=== PATIENT | female | born 1965 | race Caucasian/White ===

== ENCOUNTER 2020-04-18 15:07 | Outpatient (CLI) | payer OTHER, SELFPAY ==
--- NOTE | 2020-04-18 15:14 | MM_ITS ---
WS: [id number] BILATERAL DIGITAL SCREENING MAMMOGRAPHY WITH CAD CLINICAL INFORMATION: SCREENING HISTORY: Screening mammogram. No current complaints. COMPARISON: TECHNIQUE: Bilateral CC and MLO views. FINDINGS: Scattered fibroglandular densities bilaterally. No suspicious focal mass, asymmetry, calcifications, or architectural distortion. No evidence of malignancy. Stable axillary tail lymph nodes. MM/[id number] IMPRESSION: BI-RADS: 2-Benign FOLLOW UP: 1 Year Follow-up Recommend return to annual screening mammography.
== END 2020-04-18 15:08 | disposition home or self-care (01) ==
LOC: RADSHAW 15:12
PROVIDERS: PCP Family Medicine; Visit Provider Family Medicine
DX: Z12.31 Encounter for screening mammogram for malignant neoplasm of breast (principal)
CPT/HCPCS: 77067

== ENCOUNTER 2021-05-29 07:45 | Outpatient (CLI) | payer OTHER, SELFPAY ==
--- NOTE | 2021-05-29 07:49 | MM_ITS ---
WS: [id number] BILATERAL SCREENING DIGITAL MAMMOGRAM WITH CAD HISTORY: SCREENING COMPARISON: 04/18/2020, 02/24/2019 Bilateral CC and MLO views submitted. Computer aided detection analyzed. Breast composition: There are scattered areas of fibroglandular density. No suspicious masses, microc alcifications or architectural distortion. Stable bilateral axillary tail lymph nodes. MM/[place] [id number] IMPRESSION: BI-RADS: 2-Benign FOLLOW UP: 1 Year Follow-up
== END 2021-05-29 07:46 | disposition home or self-care (01) ==
LOC: RADSHAW 07:48
PROVIDERS: PCP Family Medicine; Visit Provider Family Medicine
DX: Z12.31 Encounter for screening mammogram for malignant neoplasm of breast (principal)
CPT/HCPCS: 77067

== ENCOUNTER → 2022-10-09 08:10 | Outpatient (BNVA) | payer OTHER, SELFPAY | PROVIDERS: PCP Family Medicine; Visit Provider Family Medicine | DX: Z00.00 Encounter for general adult medical examination without abnormal findings (principal); I10 Essential (primary) hypertension; E11.9 Type 2 diabetes mellitus without complications; G62.9 Polyneuropathy, unspecified | CPT/HCPCS: 80053; 80061; 82607; 83036; 84443; 85025 ==

== ENCOUNTER 2022-10-24 15:03 | Outpatient (CLI) | payer OTHER, SELFPAY ==
--- NOTE | 2022-10-24 15:27 | MM_ITS ---
WS: [id number] BILATERAL 3D TOMOSYNTHESIS DIGITAL SCREENING MAMMOGRAPHY WITH CAD CLINICAL INFORMATION: SCREEN HISTORY: Screening mammogram. No current complaints. COMPARISON: May 29, 2021 TECHNIQUE: Bilateral CC and MLO views. FINDINGS: Scattered fibroglandular densities bilaterally. No suspicious focal mass, asymmetry, calcifications, or architectural distortion. No evidence of malignancy. MM/[place] [id number] IMPRESSION: BI-RADS: 1-Negative FOLLOW UP: 1 Year Follow-up Recommend return to annual screening mammography.
== END 2022-10-24 15:04 | disposition home or self-care (01) ==
PROVIDERS: PCP Family Medicine; Visit Provider Family Medicine
DX: Z12.31 Encounter for screening mammogram for malignant neoplasm of breast (principal)
CPT/HCPCS: 77063; 77067

== ENCOUNTER 2022-11-03 16:22 | Outpatient (CLI) | payer OTHER, SELFPAY ==
--- NOTE | 2022-11-03 16:27 | XR_ITS ---
WS: [id number] Exam: XR knee RT 1-2V [id number] Date/Time of Exam: 11/03/2022 4:46 PM Reason For Exam: right knee pain No fracture or dislocation. The joint compartments are well-maintained. No joint effusion seen. XR/XR knee RT 1-2V [id number] IMPRESSION: 1. Negative right knee.
== END 2022-11-03 16:23 | disposition home or self-care (01) ==
LOC: RAD 16:27
PROVIDERS: PCP Family Medicine; Visit Provider Family Medicine
DX: M25.561 Pain in right knee (principal)
CPT/HCPCS: 73560

== ENCOUNTER 2023-01-08 12:45 | Outpatient (CLI) | payer OTHER, SELFPAY ==
--- NOTE | 2023-01-08 13:00 | MR_ITS ---
WS: [id number] MRI RIGHT KNEE HISTORY: chronic knee pain COMPARISON: 11/03/2022 Anterior cruciate ligament: Intact. Posterior cruciate ligament: No identifiable PCL is visualized. There is abnormal signal along the co urse of the PCL and at the intercondylar notch. Medial collateral ligament: Partially extruded meniscus displacing the MCL. The deep portion of the M CL is wavy consistent with a partial tear. The superficial MCL is intact. Posterior lateral corner structures: Intact. Medial menisci: Abnormal signal throughout a large portion of the posterior horn extending into the m eniscal root. Slight blunting of the anterior horn. Lateral meniscus: Intact. Normal signal, size and shape. Extensor mechanism: Distal quadriceps tendon and patellar tendons are intact. Fluid and soft tissue: Small suprapatellar joint effusion. Lobulated Almaraz's cyst extends over a jamaal th of at least 6.4 cm. There is a small amount of fluid along the medial head of the gastrocnemius. Osseous and articular structures: Patellofemoral compartment: Negative. Medial compartment: Moderate narrowing medial compartment with near complete loss of cartilage. Marro w edema in the medial femoral condyle and the tibial plateau. Osteochondral changes along the tibial plateau. Lateral compartment: Negative. MR/MR knee RT wo con* [id number] IMPRESSION: 1. Moderate narrowing medial compartment with marrow edema and osteochondral l esion in the tibial plateau. Near complete loss of cartilage. 2. Highly suspicious for complete PCL tear. 3. Complex tear posterior horn medial meniscus with partial extrusion from th e joint space. 4. Ligament tear deep portion of the MCL. 5. Small suprapatellar joint effusion. 6. Large Almaraz's cyst with free fluid extending along the medial head of the g astrocnemius. This may indicate partial rupture of the cyst.
== END 2023-01-08 12:46 | disposition home or self-care (01) ==
LOC: RAD 12:47
PROVIDERS: PCP Family Medicine; Visit Provider Family Medicine
DX: M25.861 Other specified joint disorders, right knee (principal); S83.231A Complex tear of medial meniscus, current injury, right knee, initial encounter; M25.461 Effusion, right knee; M71.21 Synovial cyst of popliteal space [Baker], right knee; X58.XXXA Exposure to other specified factors, initial encounter
CPT/HCPCS: 73721

== ENCOUNTER → 2023-03-27 08:39 | Outpatient (BNVA) | payer OTHER, SELFPAY | PROVIDERS: PCP Family Medicine; Visit Provider Family Medicine | DX: I10 Essential (primary) hypertension (principal); Z00.00 Encounter for general adult medical examination without abnormal findings | CPT/HCPCS: 80053; 80061; 83036 ==

== ENCOUNTER → 2023-10-12 07:53 | Outpatient (BNVA) | payer OTHER, SELFPAY | PROVIDERS: PCP Family Medicine; Visit Provider Family Medicine | DX: E11.9 Type 2 diabetes mellitus without complications (principal); I10 Essential (primary) hypertension | CPT/HCPCS: 80053; 80061; 83036; 84443; 85025 ==

== ENCOUNTER → 2023-12-25 07:57 | Outpatient (BNVA) | payer OTHER, SELFPAY | PROVIDERS: PCP Family Medicine; Visit Provider Family Medicine | DX: E11.22 Type 2 diabetes mellitus with diabetic chronic kidney disease (principal); I12.9 Hypertensive chronic kidney disease with stage 1 through stage 4 chronic kidney disease, or unspecified chronic kidney disease; N18.9 Chronic kidney disease, unspecified | CPT/HCPCS: 80053; 80061; 83036; 85025 ==

== ENCOUNTER → 2024-03-18 08:31 | Outpatient (BNVA) | payer OTHER, SELFPAY | PROVIDERS: PCP Family Medicine; Visit Provider Family Medicine | DX: I10 Essential (primary) hypertension (principal); E78.5 Hyperlipidemia, unspecified; E11.9 Type 2 diabetes mellitus without complications | CPT/HCPCS: 80053; 80061; 83036; 85025 ==

== ENCOUNTER → 2024-06-22 09:05 | Outpatient (BNVA) | payer OTHER, SELFPAY | PROVIDERS: PCP Family Medicine; Visit Provider Family Medicine | DX: I10 Essential (primary) hypertension (principal); E78.5 Hyperlipidemia, unspecified; E11.9 Type 2 diabetes mellitus without complications; N95.1 Menopausal and female climacteric states; G62.9 Polyneuropathy, unspecified | CPT/HCPCS: 80053; 80061; 83036; 84443 ==

== ENCOUNTER → 2024-09-22 09:52 | Outpatient (BNVA) | payer OTHER, SELFPAY | PROVIDERS: PCP Family Medicine; Visit Provider Family Medicine | DX: I10 Essential (primary) hypertension (principal); R73.03 Prediabetes | CPT/HCPCS: 80053; 80061; 83036 ==

== ENCOUNTER 2024-09-29 12:39 | Outpatient (CLI) | payer OTHER, SELFPAY ==
--- NOTE | 2024-09-29 | XRR_ITS ---
PROCEDURE INFORMATION: Exam: XR Right Ribs with PA Chest Exam date and time: 09/29/2024 1:07 PM Age: 59 years old Clinical indication: Chest wall pain; Prior surgery; Surgery date: 6+ months; Surgery type: Gb; Sharp pain in lower back side of right ribcage for 1 week. PT denies any injury; Additional info: Right rib pain. TECHNIQUE: Imaging protocol: Radiologic exam of the right ribs with PA chest. Views: 3 views COMPARISON: No relevant prior studies available. FINDINGS: Lungs: Mild bibasilar atelectasis or infiltrates. Pleural spaces: Small bilateral pleural effusions. Heart/Mediastinum: Unremarkable. No cardiomegaly. Bones/joints: Anterior cervical fusion. No displaced rib fracture. The images appear to be predominantly of the left rather than right ribs. XR/XR ribs LT mn 3V w CXR1V [id number] IMPRESSION: No acute traumatic injury. Images include more of the left ribs than the right.
== END 2024-09-29 12:40 | disposition home or self-care (01) ==
LOC: RAD 16:15
PROVIDERS: PCP Family Medicine; Visit Provider Family Medicine
DX: R07.89 Other chest pain (principal); R91.8 Other nonspecific abnormal finding of lung field; J90 Pleural effusion, not elsewhere classified; M43.22 Fusion of spine, cervical region
CPT/HCPCS: 71101

== ENCOUNTER 2024-09-30 08:39 | Outpatient (CLI) | payer OTHER, SELFPAY ==
--- NOTE | 2024-09-30 08:44 | XR_ITS ---
WS: [id number] Chest with right rib detail, 4 views, 09/30/2024 Clinical Data: RIGHT RIB PAIN/PLEURODYNIA Comparison: Chest with left rib detail, 09/29/2024 Findings: The lungs show no nodules or masses. There is a small right pleural effusion and an even smaller left pleural effusion. There is right midlung atelectasis. The heart is normal. No pneumonia or pneumothorax is seen. There is a calcification overlying the head of the right humerus which is probably calcific bursitis and/or tendinitis. There is an anterior cervical disc fusion. The ribs are intact. No rib fractures seen. No subcutaneous emphysema is present. There are right upper quadrant cholecystectomy clips. XR/XR ribs RT mn 3V w CXR1V [id number] Impression: 1. Small right pleural effusion and probable minute left pleural effusion. 2. Intact right ribs.
== END 2024-09-30 08:40 | disposition home or self-care (01) ==
LOC: RAD 08:41
PROVIDERS: PCP Family Medicine; Visit Provider Family Medicine
DX: R07.81 Pleurodynia (principal); J90 Pleural effusion, not elsewhere classified; J98.11 Atelectasis; R93.6 Abnormal findings on diagnostic imaging of limbs; M43.22 Fusion of spine, cervical region; Z90.49 Acquired absence of other specified parts of digestive tract
CPT/HCPCS: 71101

== ENCOUNTER 2024-10-09 13:29 | Emergency (ER) | payer OTHER, SELFPAY ==
[2024-10-09 13:40] VITALS: BP 127/80; PULSE 98; TEMP 36.6; O2SAT 95; BMI 25.2
--- NOTE | 2024-10-09 13:45 | XRR_ITS ---
PROCEDURE INFORMATION: Exam: XR Abdomen Exam date and time: 10/09/2024 3:07 PM Age: 59 years old Clinical indication: Constipation; Additional info: Constipation, abdominal pain TECHNIQUE: Imaging protocol: Radiologic exam of the abdomen. Views: Frontal supine view of the abdomen. 1 View. COMPARISON: CR XR ribs RT mn 3V w CXR1V [id number] 09/30/2024 1:07 PM FINDINGS: Gastrointestinal tract: Moderate fecal burden. No bowel dilation. Intraperitoneal space: There are right upper quadrant clips. Bones/joints: No acute findings. XR/XR abdomen 1V* [id number] IMPRESSION: No acute findings.
[2024-10-09 14:16] LABS: Add Urine Microscopic? NO
[2024-10-09 14:21] LABS: Bilirubin Urine Neg (Negative); Blood Urine Neg (Negative); Charge for UA Resulting for Rev; Glucose Urine UA Norm (Normal); Ketones Urine Negative (Negative); Leukocyte Esterase Urine Negative (Negative); Nitrate Urine Negative (Negative); Protein Urine Neg (Negative); Specific Gravity, Urine 1.005 (1.005-1.030); Urine Appearance Clear (CLEAR); Urine Color Yellow (Yellow); Urobilinogen Urine Norm (Negative); pH Urine 7 (5-7)
[2024-10-09 15:45] VITALS: BP 115/67; PULSE 66; RESP 15; O2SAT 100
--- NOTE | 2024-10-09 16:23 | CTR_ITS ---
PROCEDURE INFORMATION: Exam: CT Abdomen And Pelvis With Contrast Exam date and time: 10/09/2024 4:47 PM Age: 59 years old Clinical indication: Abdominal tenderness and constipation; Additional info: Abdominal distention pain constipation no bowel movement x 3 TECHNIQUE: Imaging protocol: Computed tomography of the abdomen and pelvis with contrast. Radiation optimization: All CT scans at this facility use at least one of these dose optimization techniques: automated exposure control; mA and/or kV adjustment per patient size (includes targeted exams where dose is matched to clinical indication); or iterative reconstruction. Contrast material: OMNIPAQUE 350; Contrast volume: 80 ml; Contrast route: INTRAVENOUS (IV); COMPARISON: CR XR abdomen 1V* [id number] 10/09/2024 3:07 PM RADIATION DOSE METRICS: Total DLP (mGy-cm): 415.26 FINDINGS: Lungs: Nonspecific bibasilar consolidation is present, consistent with atelectasis, edema, or pneumonia. Pleural spaces: Bilateral pleural effusions, larger on the right side. Liver: Normal. No mass. Gallbladder and biliary ducts: There has been a cholecystectomy. Pancreas: Normal. No ductal dilation. Spleen: Normal. No splenomegaly. Adrenal glands: Normal. No mass. Kidneys and ureters: Normal. No hydronephrosis. Stomach and bowel: There is moderately excessive colonic stool content. Appendix: No evidence of appendicitis. Intraperitoneal space: There is a small amount of free intraperitoneal fluid present. Vasculature: The vasculature demonstrates diffuse mild atherosclerotic calcification. There are numerous benign phleboliths in the pelvis. Lymph nodes: Unremarkable. No enlarged lymph nodes. Urinary bladder: Unremarkable as visualized. Reproductive: Unremarkable as visualized. Bones/joints: The pubic symphysis demonstrates mild degenerative changes. There are mild degenerative changes of the sacroiliac joints. There are mild degenerative changes of the hip joints. The lumbar spine demonstrates mild degenerative changes at multiple levels. Soft tissues: Unremarkable. CT/CT abdomen pelvis w con* [id number] IMPRESSION: 1. Moderate constipation with no changes of bowel obstruction or large masses. 2. Mild ascites. 3. Bilateral pleural effusions, larger on the right side with lower lobe consolidation/collapse.
--- NOTE | 2024-10-09 16:24 | W.ED.ABDPA2 ---
Documented by User: Gadiel Cardona DO 10/09/24 16:27 HPI - Abdominal Pain General: Chief Complaint: Abdominal Pain Stated Complaint: no bowel movement for 3 weeks Time Seen by Provider: 10/09/24 16:12 History of Present Illness: Patient presents to the ER with abdominal pain and nausea for the past 3 weeks worse on the right side front and back, patient also states she has not had a bowel movement in 3 weeks. She states she has very little oral intake because it hurts her abdomen or cause her to be nauseous and vomited right back up. Patient says these all started 3 weeks ago before that she did not have any abdominal problems. Her only abdominal surgeries are an appendectomy and a cholecystectomy. Both of these were done more than a decade ago. Related Data Previous Rx's ?Medication ?Instructions ?Recorded carvedilol 12.5 mg tablet See Rx Instructions .Route 10/26/23 .COMPLEX #90 tabs lisinopril 20 mg tablet See Rx Instructions .Route 10/26/23 .COMPLEX #90 tabs paroxetine HCl 20 mg tablet 20 mg PO DAILY hot flashes #90 tabs 10/26/23 trazodone 150 mg tablet See Rx Instructions .Route 11/02/23 .COMPLEX #90 tabs glimepiride 4 mg tablet 4 mg PO BID #180 tabs 12/29/23 pravastatin 10 mg tablet 10 mg PO DAILY #90 tabs 12/29/23 pioglitazone 15 mg tablet (Actos) 15 mg PO DAILY #90 tabs 03/28/24 pregabalin 25 mg capsule (Lyrica) 25 mg PO DAILY #30 caps 03/28/24 cyclobenzaprine 10 mg tablet See Rx Instructions .Route 08/29/24 .COMPLEX #180 tabs lactulose 10 gram/15 mL oral 20 g (30 mL) PO TID #1,500 mL 10/09/24 solution Allergies Allergy/AdvReac Type Severity Reaction Status Date / Time amitriptyline AdvReac Intermediate anxious Verified 10/09/24 13:45 atorvastatin (From Lipitor) AdvReac Intermediate cramps Verified 10/09/24 13:45 codeine AdvReac Intermediate Unknown Verified 10/09/24 13:45 gabapentin (From Neurontin) AdvReac Intermediate stomach Verified 10/09/24 13:45 pain lorazepam AdvReac Intermediate headaches Verified 10/09/24 13:45 simvastatin (From Zocor) AdvReac Intermediate leg cramps Verified 10/09/24 13:45 Review of Systems General: Reports: 10 or more systems reviewed and unremarkable except in HPI and below PFSH ED PFSH: Medical History Hyperlipidemia Hypertension Diabetes mellitus type 2, controlled Social History Smoking and tobacco/nicotine status: unknown if used tobacco/nicotine Physical Exam Const: COMMON NORMALS: no acute distress, average body habitus, patient oriented x3, no limitations, healthy appearing, alert and well nourished HENMT: COMMON NORMALS: normocephalic, atraumatic, hearing grossly normal bilaterally, external ears normal, Normal external nose present, moist oral mucous membranes and oropharynx normal HEAD & SCALP: normocephalic and atraumatic NOSE: Normal external nose present EXTERNAL EAR: Yes external ears normal Neck/C-Spine: COMMON NORMALS: no JVD Chest: COMMONS NORMALS: normal inspection of the chest and normal palpation of entire chest wall Resp: COMMON NORMALS: normal respiratory effort, No retractions, No use of accessory muscles and clear to auscultation bilaterally AUSCULTATION: clear to auscultation bilaterally Cardio: COMMON NORMALS: no JVD, regular rate, regular rhythm, S1 normal heart sound present, S2 normal heart sound present, No gallops present (Cardio), No clicks present (Cardio), No murmurs present (Cardio) and No rub (Cardio) RATE: regular rate RHYTHM: regular rhythm HEART SOUNDS: S1 normal heart sound present and S2 normal heart sound present GI: COMMON NORMALS: No hepatosplenomegaly present (Mildly diffusely tender, mildly distended decreased bowel sounds throughout) and no masses PALPATION: Yes No hepatosplenomegaly present (Mildly diffusely tender, mildly distended decreased bowel sounds throughout) Neuro: COMMON NORMALS: patient oriented x3 SENSORIUM/ORIENTATION: Yes alert Course Vital Signs: Vital signs: Vital Signs Temperature 97.8 F 10/09/24 13:40 Pulse Rate 84 10/09/24 18:30 Respiratory Rate 15 10/09/24 15:45 Blood Pressure 140/65 10/09/24 18:30 Pulse Oximetry 98 10/09/24 18:30 Oxygen Delivery Me thod Room Air 10/09/24 13:40 MDM - Abdominal Pain Medical Records I reviewed the patient's medical records. Lab Data I reviewed the patient's lab results. 10/09/24 16:33 10/09/24 16:33 Labs/Radiology: Radiology Impressions Abdomen X-Ray 10/09/24 13:45 IMPRESSION: No acute findings. Abdomen/Pelvis CT 10/09/24 16:23 IMPRESSION: 1. Moderate constipation with no changes of bowel obstruction or large masses. 2. Mild ascites. 3. Bilateral pleural effusions, larger on the right side with lower lobe consolidation/collapse. Laboratory Results WBC 15.54 10^3/uL (3.29-11.43) H 10/09/24 16:33 RBC 4.56 10^6/uL (3.85-5.65) 10/09/24 16:33 Hgb 13.30 g/dL (11.27-16.99) 10/09/24 16:33 Hct 39.6 % (36-47) 10/09/24 16:33 MCV 86.8 fl (85-98) 10/09/24 16:33 MCH 29.2 pg (27-33) 10/09/24 16:33 MCHC 33.6 g/dL (30-55) 10/09/24 16:33 RDW 13.1 % (12.1-15.1) 10/09/24 16:33 Plt Count 623 10^3/cmm (157-399) H 10/09/24 16:33 MPV 8.6 fL (7.4-10.4) 10/09/24 16:33 Neut % (Auto) 77.6 % 10/09/24 16:33 Lymph % (Auto) 9.9 % 10/09/24 16:33 [place] % (Auto) 9.9 % 10/09/24 16:33 Eos % (Auto) 1.7 % 10/09/24 16:33 Baso % (Auto) 0.4 % 10/09/24 16:33 Neut # (Auto) 12.07 10^3/uL (1.8-7.7) H 10/09/24 16:33 Lymph # (Auto) 1.5 10^3/uL (0.8-4.8) 10/09/24 16:33 [place] # (Auto) 1.5 10^3/uL (0.2-0.9) H 10/09/24 16:33 Eos # (Auto) 0.3 10^3/uL (0.0-0.8) 10/09/24 16:33 Baso # (Auto) 0.1 10^3/uL (0.0-0.1) 10/09/24 16:33 Nucleated RBC % (auto) 0 % 10/09/24 16:33 Nucleated RBCs # 0.0 /100WBC 10/09/24 16:33 Sodium 127 mmol/L (136-145) L 10/09/24 16:33 Potassium 4.5 mmol/L (3.5-5.1) 10/09/24 16:33 Chloride 89 mmol/L (98-107) L 10/09/24 16:33 Carbon Dioxide 26 mmol/L (22-29) 10/09/24 16:33 Anion Gap 16.5 (5-19) 10/09/24 16:33 BUN 19 mg/dL (8-23) 10/09/24 16:33 Creatinine 0.7 mg/dL (0.5-0.9) 10/09/24 16:33 GFR Calculation 85.1 mL/min (90-130) L 10/09/24 16:33 Glucose 160 mg/dL (65-115) H 10/09/24 16:33 Calculated Osmolality 270 mOsm/kg (285-295) L 10/09/24 16:33 Lactic Acid 1.2 mmol/L (0.5-2.2) 10/09/24 16:33 Calcium 8.9 mg/dL (8.5-10.5) 10/09/24 16:33 Magnesium 2.3 mg/dL (1.7-2.3) 10/09/24 16:33 Total Bilirubin 0.2 mg/dL (0.15-1.2) 10/09/24 16:33 AST 13 U/L (0-32) 10/09/24 16:33 ALT 8 U/L (0-33) 10/09/24 16:33 Alkaline Phosphatase 111 U/L (35-105) H 10/09/24 16:33 Total Protein 6.6 g/dL (6.6-8.7) 10/09/24 16:33 Albumin 3.5 g/dL (3.5-5.2) 10/09/24 16:33 Globulin 3.1 g/dL (1.3-4.6) 10/09/24 16:33 Lipase 42 U/L (13-60) 10/09/24 16:33 Procalcitonin 44.40 ng/mL (0-0.5) H 10/09/24 16:33 Urine Color Yellow (Yellow) 10/09/24 13:18 Urine Appearance Clear (CLEAR) 10/09/24 13:18 Urine pH 7 (5-7) 10/09/24 13:18 Ur Specific [place] 1.005 (1.005-1.030) 10/09/24 13:18 Urine Protein Neg (Negative) 10/09/24 13:18 Urine Glucose (UA) Norm (Normal) 10/09/24 13:18 Urine Ketones Negative (Negative) 10/09/24 13:18 Urine Blood Neg (Negative) 10/09/24 13:18 Urine Nitrate Negative (Negative) 10/09/24 13:18 Urine Bilirubin Neg (Negative) 10/09/24 13:18 Urine Urobilinogen Norm mg/dL (Negative) 10/09/24 13:18 Ur Leukocyte Esterase Negative (Negative) 10/09/24 13:18 Amorphous Sediment Not Reportable 10/09/24 13:18 Discharge Plan Discharge Patient Disposition: Home Clinical Impression: Abdominal pain, Constipation, Acute hyponatremia Condition: Stable Prescriptions: New lactulose 10 gram/15 mL solution 20 g PO TID Qty: 1500 0RF No Action carvedilol 12.5 mg tablet See Rx Instructions .ROUTE .COMPLEX Qty: 90 11RF Dose Instruction: take 1/2 tablet BY MOUTH TWICE DAILY Rx Instructions: take 1/2 tablet BY MOUTH TWICE DAILY lisinopril 20 mg tablet See Rx Instructions .ROUTE .COMPLEX Qty: 90 3RF Dose Instruction: TAKE 1 TABLET BY MOUTH EVERY MORNING Rx Instructions: TAKE 1 TABLET BY MOUTH EVERY MORNING paroxetine HCl 20 mg tablet 20 mg PO DAILY Qty: 90 11RF glimepiride 4 mg tablet 4 mg PO BID Qty: 180 11RF pravastatin 10 mg tablet 10 mg PO DAILY Qty: 90 3RF Rx Instructions: take with Coenzyme Q10. pioglitazone [Actos] 15 mg tablet 15 mg PO DAILY Qty: 90 11RF pregabalin [Lyrica] 25 mg capsule 25 mg PO DAILY Qty: 30 5RF trazodone 150 mg tablet See Rx Instructions .ROUTE .COMPLEX Qty: 90 11RF Dose Instruction: take 1/2 to 1 tablet BY MOUTH AT NIGHT FOR INSOMNIA Rx Instructions: take 1/2 to 1 tablet BY MOUTH AT NIGHT FOR INSOMNIA cyclobenzaprine 10 mg tablet See Rx Instructions .ROUTE .COMPLEX Qty: 180 7RF Dose Instruction: TAKE 1 TABLET BY MOUTH THREE TIMES DAILY NEEDED FOR MUSCLE CRAMPS *MAY CAUSE DROWSINESS* Rx Instructions: TAKE 1 TABLET BY MOUTH THREE TIMES DAILY NEEDED FOR MUSCLE CRAMPS *MAY CAUSE DROWSINESS* Discharge Orders: Discharge ED (Routine); Ordered 10/09/24 Ordered By: Brandon Tatum Referrals: Modesto Crawford MD [Primary Care Provider] - 1-3 days Patient Instructions: Constipation (ED), Hyponatremia (ED), Abdominal Pain (ED), Opioid Safety, Pain Management Activity Restrictions/Additional Instructions: Your sodium is low today on your laboratory report. This needs to be repeated at some point this week. As for the constipation, take medication as directed. You were dispensed magnesium citrate, which can help, he will be placed on lactulose up to 3 times daily. Once bowel movements are soft, and come easily, you can decrease to twice daily, then once daily, etc. Call your doctor tomorrow for an outpatient follow-up. More outpatient testing may be needed. 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 Fwd Documented by User: Brandon Tatum DO 10/09/24 19:14 HPI - Abdominal Pain General: Chief Complaint: Abdominal Pain Stated Complaint: no bowel movement for 3 weeks Time Seen by Provider: 10/09/24 16:12 Related Data Previous Rx's ?Medication ?Instructions ?Recorded carvedilol 12.5 mg tablet See Rx Instructions .Route 10/26/23 .COMPLEX #90 tabs lisinopril 20 mg tablet See Rx Instructions .Route 10/26/23 .COMPLEX #90 tabs paroxetine HCl 20 mg tablet 20 mg PO DAILY hot flashes #90 tabs 10/26/23 trazodone 150 mg tablet See Rx Instructions .Route 11/02/23 .COMPLEX #90 tabs glimepiride 4 mg tablet 4 mg PO BID #180 tabs 12/29/23 pravastatin 10 mg tablet 10 mg PO DAILY #90 tabs 12/29/23 pioglitazone 15 mg tablet (Actos) 15 mg PO DAILY #90 tabs 03/28/24 pregabalin 25 mg capsule (Lyrica) 25 mg PO DAILY #30 caps 03/28/24 cyclobenzaprine 10 mg tablet See Rx Instructions .Route 08/29/24 .COMPLEX #180 tabs lactulose 10 gram/15 mL oral 20 g (30 mL) PO TID #1,500 mL 10/09/24 solution Allergies Allergy/AdvReac Type Severity Reaction Status Date / Time amitriptyline AdvReac Intermediate anxious Verified 10/09/24 13:45 atorvastatin (From Lipitor) AdvReac Intermediate cramps Verified 10/09/24 13:45 codeine AdvReac Intermediate Unknown Verified 10/09/24 13:45 gabapentin (From Neurontin) AdvReac Intermediate stomach Verified 10/09/24 13:45 pain lorazepam AdvReac Intermediate headaches Verified 10/09/24 13:45 simvastatin (From Zocor) AdvReac Intermediate leg cramps Verified 10/09/24 13:45 [facility] ED PFSH: Medical History Hyperlipidemia Hypertension Diabetes mellitus type 2, controlled Social History Smoking and tobacco/nicotine status: unknown if used tobacco/nicotine Course Vital Signs: Vital signs: Vital Signs Temperature 97.8 F 10/09/24 13:40 Pulse Rate 84 10/09/24 18:30 Respiratory Rate 15 10/09/24 15:45 Blood Pressure 140/65 10/09/24 18:30 Pulse Oximetry 98 10/09/24 18:30 Oxygen Delivery Me thod Room Air 10/09/24 13:40 MDM - Abdominal Pain Medical Decision Making 59-year-old female checked out to me at shift change. This lady has 3 weeks of abdominal pain. She does have a white blood cell count of 15.5, but with no left shift. Sodium is 127. Her sodium has been low for some time, but not quite that low. CT reveals no acute findings. It does reveal moderate constipation with no obstruction. She does appear to be retaining some fluid. She has small bilateral pleural effusions present. She will be treated for constipation. Further outpatient testing may be needed regarding small amount of ascites, small pleural effusions, and hyponatremia. Lab Data 10/09/24 16:33 10/09/24 16:33 Labs/Radiology: Radiology Impressions Abdomen X-Ray 10/09/24 13:45 IMPRESSION: No acute findings. Abdomen/Pelvis CT 10/09/24 16:23 IMPRESSION: 1. Moderate constipation with no changes of bowel obstruction or large masses. 2. Mild ascites. 3. Bilateral pleural effusions, larger on the right side with lower lobe consolidation/collapse. Laboratory Results WBC 15.54 10^3/uL (3.29-11.43) H 10/09/24 16:33 RBC 4.56 10^6/uL (3.85-5.65) 10/09/24 16:33 Hgb 13.30 g/dL (11.27-16.99) 10/09/24 16:33 Hct 39.6 % (36-47) 10/09/24 16:33 MCV 86.8 fl (85-98) 10/09/24 16:33 MCH 29.2 pg (27-33) 10/09/24 16:33 MCHC 33.6 g/dL (30-55) 10/09/24 16:33 RDW 13.1 % (12.1-15.1) 10/09/24 16:33 Plt Count 623 10^3/cmm (157-399) H 10/09/24 16:33 MPV 8.6 fL (7.4-10.4) 10/09/24 16:33 Neut % (Auto) 77.6 % 10/09/24 16:33 Lymph % (Auto) 9.9 % 10/09/24 16:33 [place] % (Auto) 9.9 % 10/09/24 16:33 Eos % (Auto) 1.7 % 10/09/24 16:33 Baso % (Auto) 0.4 % 10/09/24 16:33 Neut # (Auto) 12.07 10^3/uL (1.8-7.7) H 10/09/24 16:33 Lymph # (Auto) 1.5 10^3/uL (0.8-4.8) 10/09/24 16:33 [place] # (Auto) 1.5 10^3/uL (0.2-0.9) H 10/09/24 16:33 Eos # (Auto) 0.3 10^3/uL (0.0-0.8) 10/09/24 16:33 Baso # (Auto) 0.1 10^3/uL (0.0-0.1) 10/09/24 16:33 Nucleated RBC % (auto) 0 % 10/09/24 16:33 Nucleated RBCs # 0.0 /100WBC 10/09/24 16:33 Sodium 127 mmol/L (136-145) L 10/09/24 16:33 Potassium 4.5 mmol/L (3.5-5.1) 10/09/24 16:33 Chloride 89 mmol/L (98-107) L 10/09/24 16:33 Carbon Dioxide 26 mmol/L (22-29) 10/09/24 16:33 Anion Gap 16.5 (5-19) 10/09/24 16:33 BUN 19 mg/dL (8-23) 10/09/24 16:33 Creatinine 0.7 mg/dL (0.5-0.9) 10/09/24 16:33 GFR Calculation 85.1 mL/min (90-130) L 10/09/24 16:33 Glucose 160 mg/dL (65-115) H 10/09/24 16:33 Calculated Osmolality 270 mOsm/kg (285-295) L 10/09/24 16:33 Lactic Acid 1.2 mmol/L (0.5-2.2) 10/09/24 16:33 Calcium 8.9 mg/dL (8.5-10.5) 10/09/24 16:33 Magnesium 2.3 mg/dL (1.7-2.3) 10/09/24 16:33 Total Bilirubin 0.2 mg/dL (0.15-1.2) 10/09/24 16:33 AST 13 U/L (0-32) 10/09/24 16:33 ALT 8 U/L (0-33) 10/09/24 16:33 Alkaline Phosphatase 111 U/L (35-105) H 10/09/24 16:33 Total Protein 6.6 g/dL (6.6-8.7) 10/09/24 16:33 Albumin 3.5 g/dL (3.5-5.2) 10/09/24 16:33 Globulin 3.1 g/dL (1.3-4.6) 10/09/24 16:33 Lipase 42 U/L (13-60) 10/09/24 16:33 Procalcitonin 44.40 ng/mL (0-0.5) H 10/09/24 16:33 Urine Color Yellow (Yellow) 10/09/24 13:18 Urine Appearance Clear (CLEAR) 10/09/24 13:18 Urine pH 7 (5-7) 10/09/24 13:18 Ur Specific [place] 1.005 (1.005-1.030) 10/09/24 13:18 Urine Protein Neg (Negative) 10/09/24 13:18 Urine Glucose (UA) Norm (Normal) 10/09/24 13:18 Urine Ketones Negative (Negative) 10/09/24 13:18 Urine Blood Neg (Negative) 10/09/24 13:18 Urine Nitrate Negative (Negative) 10/09/24 13:18 Urine Bilirubin Neg (Negative) 10/09/24 13:18 Urine Urobilinogen Norm mg/dL (Negative) 10/09/24 13:18 Ur Leukocyte Esterase Negative (Negative) 10/09/24 13:18 Amorphous Sediment Not Reportable 10/09/24 13:18 All radiology interpretation(s) finalized by discharge Discharge Plan Discharge Patient Disposition: Home Clinical Impression: Abdominal pain, Constipation, Acute hyponatremia Condition: Stable Prescriptions: New lactulose 10 gram/15 mL solution 20 g PO TID Qty: 1500 0RF No Action carvedilol 12.5 mg tablet See Rx Instructions .ROUTE .COMPLEX Qty: 90 11RF Dose Instruction: take 1/2 tablet BY MOUTH TWICE DAILY Rx Instructions: take 1/2 tablet BY MOUTH TWICE DAILY lisinopril 20 mg tablet See Rx Instructions .ROUTE .COMPLEX Qty: 90 3RF Dose Instruction: TAKE 1 TABLET BY MOUTH EVERY MORNING Rx Instructions: TAKE 1 TABLET BY MOUTH EVERY MORNING paroxetine HCl 20 mg tablet 20 mg PO DAILY Qty: 90 11RF glimepiride 4 mg tablet 4 mg PO BID Qty: 180 11RF pravastatin 10 mg tablet 10 mg PO DAILY Qty: 90 3RF Rx Instructions: take with Coenzyme Q10. pioglitazone [Actos] 15 mg tablet 15 mg PO DAILY Qty: 90 11RF pregabalin [Lyrica] 25 mg capsule 25 mg PO DAILY Qty: 30 5RF trazodone 150 mg tablet See Rx Instructions .ROUTE .COMPLEX Qty: 90 11RF Dose Instruction: take 1/2 to 1 tablet BY MOUTH AT NIGHT FOR INSOMNIA Rx Instructions: take 1/2 to 1 tablet BY MOUTH AT NIGHT FOR INSOMNIA cyclobenzaprine 10 mg tablet See Rx Instructions .ROUTE .COMPLEX Qty: 180 7RF Dose Instruction: TAKE 1 TABLET BY MOUTH THREE TIMES DAILY NEEDED FOR MUSCLE CRAMPS *MAY CAUSE DROWSINESS* Rx Instructions: TAKE 1 TABLET BY MOUTH THREE TIMES DAILY NEEDED FOR MUSCLE CRAMPS *MAY CAUSE DROWSINESS* Discharge Orders: Discharge ED (Routine); Ordered 10/09/24 Ordered By: Brandon Tatum Referrals: Modesto Crawford MD [Primary Care Provider] - 1-3 days Patient Instructions: Constipation (ED), Hyponatremia (ED), Abdominal Pain (ED), Opioid Safety, Pain Management Activity Restrictions/Additional Instructions: Your sodium is low today on your laboratory report. This needs to be repeated at some point this week. As for the constipation, take medication as directed. You were dispensed magnesium citrate, which can help, he will be placed on lactulose up to 3 times daily. Once bowel movements are soft, and come easily, you can decrease to twice daily, then once daily, etc. Call your doctor tomorrow for an outpatient follow-up. More outpatient testing may be needed. Print Language: Hungarian Coding Level of Care Code ED Bag Filler Machine Operator for Jarad Garcia
[2024-10-09 16:45] VITALS: BP 129/69; PULSE 94; O2SAT 93
[2024-10-09] MEDS: iohexol 350 mg/mL 500 mL Btl (per mL) IV (16:50)
[2024-10-09 16:51] LABS: Basophils # 0.1 10^3/uL (0.0-0.1); Basophils % 0.4 %; Eosinophils # 0.3 10^3/uL (0.0-0.8); Eosinophils % 1.7 %; Hematocrit 39.6 % (36-47); Lymphocytes # 1.5 10^3/uL (0.8-4.8); Lymphocytes % 9.9 %; Mean Corpuscular HGB Conc 33.6 g/dL (30-55); Mean Corpuscular Hemoglobin 29.2 pg (27-33); Mean Corpuscular Volume 86.8 fl (85-98); Mean Platelet Volume 8.6 fL (7.4-10.4); Monocytes # 1.5 10^3/uL (0.2-0.9); Monocytes % 9.9 %; Neutrophils # 12.07 10^3/uL (1.8-7.7); Neutrophils % 77.6 %; Nucleated Red Blood Cells % 0 %; Platelet Count 623 10^3/cmm (157-399); Red Blood Count 4.56 10^6/uL (3.85-5.65); Red Cell Distribution Width 13.1 % (12.1-15.1); White Blood Count 15.54 10^3/uL (3.29-11.43)
[2024-10-09 17:00] LABS: Lactic Sepsis W/Reflex 1.2 mmol/L (0.5-2.2)
[2024-10-09 17:01] LABS: Alanine Aminotransferase 8 U/L (0-33); Albumin Level 3.5 g/dL (3.5-5.2); Alkaline Phosphatase 111 U/L (35-105); Anion Gap 16.5 (5-19); Aspartate Amino Transferase 13 U/L (0-32); Blood Urea Nitrogen 19 mg/dL (8-23); Calcium 8.9 mg/dL (8.5-10.5); Carbon Dioxide 26 mmol/L (22-29); Chloride 89 mmol/L (98-107); Globulin 3.1 g/dL (1.3-4.6); Glomerular Filtration Rate 85.1 mL/min (90-130); Glucose 160 mg/dL (65-115); Lipase 42 U/L (13-60); Magnesium 2.3 mg/dL (1.7-2.3); Osmolality Calculated 270 mOsm/kg (285-295); Potassium 4.5 mmol/L (3.5-5.1); Sodium 127 mmol/L (136-145); Total Bilirubin 0.2 mg/dL (0.15-1.2); Total Protein 6.6 g/dL (6.6-8.7)
[2024-10-09 17:45] VITALS: BP 121/83; PULSE 90; O2SAT 93
[2024-10-09] MEDS: ondansetron 2 mg/ML SDV 2 mL 4 MG IVP (17:45)
[2024-10-09] MEDS: ketorolac 30 mg/mL INJ IVP (17:47)
[2024-10-09] MEDS: sodium chloride 0.9% 1,000 ML 999 ML IV (17:59)
[2024-10-09 18:30] VITALS: BP 140/65; PULSE 84; O2SAT 98
[2024-10-09] MEDS: magnesium citrate Btl 296 mL PO (19:16)
[2024-10-09 19:31] VITALS: BP 144/89; PULSE 91; O2SAT 94
== END 2024-10-09 19:32 | disposition home or self-care (01) ==
PROVIDERS: Emergency Medicine; Emergency Provider Emergency Medicine; PCP Family Medicine
DX: R10.9 Unspecified abdominal pain (principal); K59.00 Constipation, unspecified; E87.1 Hypo-osmolality and hyponatremia; E78.5 Hyperlipidemia, unspecified; E11.9 Type 2 diabetes mellitus without complications; I10 Essential (primary) hypertension
CPT/HCPCS: 74018; 74177; 80053; 81003; 83605; 83690; 83735; 84145; 85025; 96374; 96375; 99285; J1885; J2405; J7030; J9999

== ENCOUNTER 2024-11-02 19:01 | Observation (INO) | payer OTHER, SELFPAY ==
[2024-11-02 19:12] VITALS: BP 145/76; PULSE 92; RESP 18; TEMP 36.6; O2SAT 93; BMI 24.6
--- NOTE | 2024-11-02 19:15 | ECG_ITS ---
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 Measurements Intervals [place] Rate: 92 P: 57 MA: 131 QRS: 71 QRSD: 101 T: 65 QT: 330 QTc: 409 Interpretive Statements SINUS RHYTHM POSSIBLE LEFT ATRIAL ENLARGEMENT [-0.1mV P-WAVE IN V1/V2] LOW QRS VOLTAGE IN PRECORDIAL LEADS [QRS DEFLECTION < 1.0 mV IN CHEST LEADS] POSSIBLE ANTERIOR MYOCARDIAL INFARCTION , PROBABLY OLD [30 ms Q WAVE IN V3/V4, OR R < 0.2 mV IN V4] No previous ECG available for comparison Electronically Signed On 11-04-2024 10:38:44 CDT by Kim Carter M.D. [id number]
--- NOTE | 2024-11-02 20:19 | XRR_ITS ---
PROCEDURE INFORMATION: Exam: XR Chest Exam date and time: 11/02/2024 8:28 PM Age: 59 years old Clinical indication: Pain; Chest pressure; Additional info: Chest pain TECHNIQUE: Imaging protocol: Radiologic exam of the chest. Views: 1 view. COMPARISON: CR XR ribs RT mn 3V w CXR1V [id number] 09/30/2024 1:07 PM FINDINGS: Lungs: Right mid to lower lung field pneumonia. Pleural spaces: Moderate right and trace left pleural effusions. Heart/Mediastinum: Unremarkable. No cardiomegaly. Bones/joints: Unremarkable. XR/XR chest 1V portable [id number] IMPRESSION: 1. Moderate right and trace left pleural effusions. 2. Right mid to lower lung field pneumonia.
--- NOTE | 2024-11-02 20:20 | ECG_ITS ---
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 Measurements Intervals [place] Rate: 93 P: 57 VT: 134 QRS: 76 QRSD: 95 T: 39 QT: 336 QTc: 419 Interpretive Statements SINUS RHYTHM POSSIBLE LEFT ATRIAL ENLARGEMENT [-0.1mV P-WAVE IN V1/V2] LOW QRS VOLTAGE IN PRECORDIAL LEADS [QRS DEFLECTION < 1.0 mV IN CHEST LEADS] POSSIBLE ANTERIOR MYOCARDIAL INFARCTION , PROBABLY OLD [30 ms Q WAVE IN V3/V4, OR R < 0.2 mV IN V4] No previous ECG available for comparison Electronically Signed On 11-04-2024 10:38:29 CDT by Kim Carter M.D. [email or web address]
[2024-11-02 20:42] LABS: Basophils % 0.2 %; Eosinophils % 0.1 %; Hematocrit 36.2 % (36-47); Lymphocytes # 0.9 10^3/uL (0.8-4.8); Lymphocytes % 4.7 %; Mean Corpuscular HGB Conc 33.1 g/dL (30-55); Mean Corpuscular Hemoglobin 28.8 pg (27-33); Mean Platelet Volume 8.3 fL (7.4-10.4); Monocytes # 0.9 10^3/uL (0.2-0.9); Monocytes % 4.9 %; Neutrophils # 16.77 10^3/uL (1.8-7.7); Neutrophils % 89.7 %; Nucleated Red Blood Cells % 0 %; Platelet Count 635 10^3/cmm (157-399); Red Blood Count 4.16 10^6/uL (3.85-5.65); White Blood Count 18.68 10^3/uL (3.29-11.43)
[2024-11-02 20:44] VITALS: BP 124/82; PULSE 93; O2SAT 94
--- NOTE | 2024-11-02 20:50 | W.ED.SOB ---
HPI - SOB/Dyspnea General: Chief Complaint: Shortness of Breath/Dyspnea Stated Complaint: Chest tightness,Sob Time Seen by Provider: 11/02/24 20:15 Source: patient Limitations: no limitations History of Present Illness: HPI Narrative: Patient is a nontoxic 59-year-old female who presents to the ER with complaint of feeling short of breath and having some substernal chest pain for the last 3 days. She states she woke up in the [place] with feeling short of breath. She has had continued dyspnea with any exertion or activity. Her symptoms are improved with rest. She states her pain in her chest feels like a pressure. She denies any history of coronary artery disease. No radiation of pain to her sides or to her back. No history of PE or DVT. Related Data Previous Rx's ?Medication ?Instructions ?Recorded carvedilol 12.5 mg tablet See Rx Instructions .Route 10/26/23 .COMPLEX #90 tabs lisinopril 20 mg tablet See Rx Instructions .Route 10/26/23 .COMPLEX #90 tabs paroxetine HCl 20 mg tablet 20 mg PO DAILY hot flashes #90 tabs 10/26/23 trazodone 150 mg tablet See Rx Instructions .Route 11/02/23 .COMPLEX #90 tabs glimepiride 4 mg tablet 4 mg PO BID #180 tabs 12/29/23 pravastatin 10 mg tablet 10 mg PO DAILY #90 tabs 12/29/23 pioglitazone 15 mg tablet (Actos) 15 mg PO DAILY #90 tabs 03/28/24 pregabalin 25 mg capsule (Lyrica) 25 mg PO DAILY #30 caps 03/28/24 cyclobenzaprine 10 mg tablet See Rx Instructions .Route 08/29/24 .COMPLEX #180 tabs lactulose 10 gram/15 mL oral 20 g (30 mL) PO TID #1,500 mL 10/09/24 solution Allergies Allergy/AdvReac Type Severity Reaction Status Date / Time amitriptyline AdvReac Intermediate anxious Verified 11/02/24 19:15 atorvastatin (From Lipitor) AdvReac Intermediate cramps Verified 11/02/24 19:15 codeine AdvReac Intermediate Unknown Verified 11/02/24 19:15 gabapentin (From Neurontin) AdvReac Intermediate stomach Verified 11/02/24 19:15 pain lorazepam AdvReac Intermediate headaches Verified 11/02/24 19:15 simvastatin (From Zocor) AdvReac Intermediate leg cramps Verified 11/02/24 19:15 PFSH ED PFSH: Medical History Hyperlipidemia Hypertension Diabetes mellitus type 2, controlled Social History Smoking and tobacco/nicotine status: unknown if used tobacco/nicotine Physical Exam Const: COMMON NORMALS: no acute distress and alert GENERAL APPEARANCE: cooperative ORIENTATION/CONSCIOUSNESS: Yes awake HENMT: COMMON NORMALS: normocephalic HEAD & SCALP: normocephalic MOUTH: Normal oral and palatal mucosa present Eye: COMMON NORMALS: conjunctivae normal CONJUNCTIVA: Yes conjunctivae normal Neck/C-Spine: GENERAL: Yes normal visual inspection Resp: COMMON NORMALS: normal respiratory effort, No retractions and No use of accessory muscles Cardio: COMMON NORMALS: regular rhythm and Peripheral pulses 2+ throughout RHYTHM: regular rhythm PERIPHERAL PULSES: Peripheral pulses 2+ throughout GI: COMMON NORMALS: Soft to palpation and non-tender PALPATION: Yes Soft to palpation Extremity: COMMON NORMALS: full ROM and no pedal edema Neuro: COMMON NORMALS: no focal motor deficits SENSORIUM/ORIENTATION: Yes alert Skin: COMMON NORMALS: no rashes or lesions noted GENERAL SKIN EXAM: no rashes or lesions noted Course Vital Signs: Vital signs: Vital Signs Temperature 97.9 F 11/02/24 19:12 Pulse Rate 98 11/02/24 22:30 Respiratory Rate 18 11/02/24 19:12 Blood Pressure 114/51 11/02/24 22:30 Pulse Oximetry 92 11/02/24 22:30 Oxygen Delivery Me thod Room Air 11/02/24 22:30 MDM - SOB/Dyspnea Medical Decision Making Patient is a 59-year-old female who presents to the ER with complaints of increasing shortness of breath and extreme fatigue with any exertion or activity over the last couple of days. She was having some chest discomfort as well and primary complaint of dyspnea. She is noted to have a moderate right sided pleural effusion on chest x-ray with possible pneumonia in the right middle and lower lobe. EKG is sinus rhythm without ischemic ST elevation or depressions. Basic labs were obtained which shows a leukocytosis of 18,000 with a left shift. She also has some thrombocytosis as well as some hyponatremia and hypochloremia which she has had in the past. CTA of the chest was obtained due to positive D-dimer. Negative for PE on CTA however she does have a large right pleural effusion with likely right middle and lower lobe pneumonia. Patient was initially given 1 g IV Rocephin. She was given 30 cc/kg IV fluids of normal saline for hydration. Sepsis fluid reassessment was performed after administration of IV fluids. I went ahead and added azithromycin to her antibiotic coverage. Given her extreme fatigue and dyspnea with any activity and large pleural effusion I think is reasonable for admission for continued IV antibiotics and discussion of thoracentesis in the morning. I spoke with Dr. Staton with the hospitalist service who has accepted for admission. Lab Data 11/02/24 20:11/02/24 20:26 Labs/Radiology: Radiology Impressions Chest X-Ray 11/02/24 20:19 IMPRESSION: 1. Moderate right and trace left pleural effusions. 2. Right mid to lower lung field pneumonia. ADDENDUM: 11/02/242142 Left mid to lower lobe calcified granuloma. Chest CTA 11/02/24 21:16 IMPRESSION: 1. Negative for pulmonary embolus. 2. Large right pleural effusion. 3. Right middle and lower lobe atelectasis versus infiltrate. 4. Scattered subcentimeter short axis nonspecific mediastinal lymph nodes. 5. Hepatic steatosis. Laboratory Results WBC 18.68 10^3/uL (3.29-11.43) H 11/02/24 20: RBC 4.16 10^6/uL (3.85-5.65) 11/02/24: Hgb 12.00 g/dL (11.27-16.99) 11/02/24 20: Hct 36.2 % (36-47) 11/02/24 20: MCV 87.0 fl (85-98) 11/02/24 20: MCH 28.8 pg (27-33) 11/02/24 20: MCHC 33.1 g/dL (30-55) 11/02/24: RDW 14.0 % (12.1-15.1) 11/02/24: Plt Count 635 10^3/cmm (157-399) H 11/02/24 20: MPV 8.3 fL (7.4-10.4) 11/02/24 20: Neut % (Auto) 89.7 % 11/02/24 20: Lymph % (Auto) 4.7 % 11/02/24 20: [place] % (Auto) 4.9 % 11/02/24 20: Eos % (Auto) 0.1 % 11/02/24 20: Baso % (Auto) 0.2 % 11/02/24 20: Neut # (Auto) 16.77 10^3/uL (1.8-7.7) H 11/02/24 20: Lymph # (Auto) 0.9 10^3/uL (0.8-4.8) 11/02/24 20: [place] # (Auto) 0.9 10^3/uL (0.2-0.9) 11/02/24 20: Eos # (Auto) 0.0 10^3/uL (0.0-0.8) 11/02/24: Baso # (Auto) 0.0 10^3/uL (0.0-0.1) 11/02/24 20: Nucleated RBC % (auto) 0 % 11/02/24: Nucleated RBCs # 0.0 /100WBC 11/02/24: D-Dimer 1.77 ug/mLFEU (0-0.59) H 11/02/24 20: Sodium 125 mmol/L (136-145) L 11/02/24: Potassium 5.0 mmol/L (3.5-5.1) 11/02/24 20: Chloride 89 mmol/L (98-107) L 11/02/24 20: Carbon Dioxide 24 mmol/L (22-29) 11/02/24 20: Anion Gap 17.0 (5-19) 11/02/24 20: BUN 34 mg/dL (8-23) H 11/02/24 20: Creatinine 0.6 mg/dL (0.5-0.9) 11/02/24 20: GFR Calculation 101.6 mL/min (90-130) 11/02/24 20: Glucose 150 mg/dL (65-115) H 11/02/24 20:26 Calculated Osmolality 270 mOsm/kg (285-295) L 11/02/24 20: Lactic Acid 0.9 mmol/L (0.5-2.2) 11/02/24 20: Calcium 9.4 mg/dL (8.5-10.5) 11/02/24 20: Magnesium 2.2 mg/dL (1.7-2.3) 11/02/24 20: Total Bilirubin 0.2 mg/dL (0.15-1.2) 11/02/24 20: AST 12 U/L (0-32) 11/02/24 20: ALT 8 U/L (0-33) 11/02/24 20: Alkaline Phosphatase 104 U/L (35-105) 11/02/24 20: Troponin T Baseline 13 ng/L (0-10) H 11/02/24 20: NT-Pro-B Natriuret Pep 245 pg/mL (0-125) H 11/02/24 20: Total Protein 6.0 g/dL (6.6-8.7) L 11/02/24 20: Albumin 3.7 g/dL (3.5-5.2) 11/02/24 20: Globulin 2.3 g/dL (1.3-4.6) 11/02/24 20: Urine Color Yellow (Yellow) 11/02/24 21:46 Urine Appearance Clear (CLEAR) 11/02/24 21:46 Urine pH 6.0 (5-7) 11/02/24 21:46 Ur Specific [place] 1.014 (1.005-1.030) 11/02/24 21:46 Urine Protein Negative (Negative) 11/02/24 21:46 Urine Glucose (UA) Negative (Normal) 11/02/24 21:46 Urine Ketones Trace (Negative) 11/02/24 21:46 Urine Blood Negative (Negative) 11/02/24 21:46 Urine Nitrate Negative (Negative) 11/02/24 21:46 Urine Bilirubin Negative (Negative) 11/02/24 21:46 Urine Urobilinogen 0.2 mg/dL (Negative) 11/02/24 21:46 Ur Leukocyte Esterase Negative (Negative) 11/02/24 21:46 Urine RBC 0-2 /hpf (0-2) 11/02/24 21:46 Urine WBC 0-5 /hpf (0-5) 11/02/24 21:46 Ur Squamous Epith Cells 0-5 /hpf (0-5) 11/02/24 21:46 Amorphous Sediment Not Reportable 11/02/24 21:46 Urine Bacteria None seen /hpf (NONE) 11/02/24 21:46 Hyaline Casts 0.81 /lpf 11/02/24 21:46 All radiology interpretation(s) finalized by discharge Discharge Plan Discharge Patient Disposition: Placed in Observation Clinical Impression: Pneumonia, Pleural effusion, Other thrombocytosis, Hyponatremia, Dyspnea on exertion Condition: Stable Prescriptions: No Action carvedilol 12.5 mg tablet See Rx Instructions .ROUTE .COMPLEX Qty: 90 11RF Dose Instruction: take 1/2 tablet BY MOUTH TWICE DAILY Rx Instructions: take 1/2 tablet BY MOUTH TWICE DAILY lisinopril 20 mg tablet See Rx Instructions .ROUTE .COMPLEX Qty: 90 3RF Dose Instruction: TAKE 1 TABLET BY MOUTH EVERY MORNING Rx Instructions: TAKE 1 TABLET BY MOUTH EVERY MORNING paroxetine HCl 20 mg tablet 20 mg PO DAILY Qty: 90 11RF glimepiride 4 mg tablet 4 mg PO BID Qty: 180 11RF pravastatin 10 mg tablet 10 mg PO DAILY Qty: 90 3RF Rx Instructions: take with Coenzyme Q10. pioglitazone [Actos] 15 mg tablet 15 mg PO DAILY Qty: 90 11RF pregabalin [Lyrica] 25 mg capsule 25 mg PO DAILY Qty: 30 5RF trazodone 150 mg tablet See Rx Instructions .ROUTE .COMPLEX Qty: 90 11RF Dose Instruction: take 1/2 to 1 tablet BY MOUTH AT NIGHT FOR INSOMNIA Rx Instructions: take 1/2 to 1 tablet BY MOUTH AT NIGHT FOR INSOMNIA cyclobenzaprine 10 mg tablet See Rx Instructions .ROUTE .COMPLEX Qty: 180 7RF Dose Instruction: TAKE 1 TABLET BY MOUTH THREE TIMES DAILY NEEDED FOR MUSCLE CRAMPS *MAY CAUSE DROWSINESS* Rx Instructions: TAKE 1 TABLET BY MOUTH THREE TIMES DAILY NEEDED FOR MUSCLE CRAMPS *MAY CAUSE DROWSINESS* lactulose 10 gram/15 mL solution 20 g PO TID Qty: 1500 0RF Print Language: Georgian Coding Level of Care Code ED Correspondence Representative for [facility] Fwd
[2024-11-02 20:55] LABS: D Dimer 1.77 ug/mLFEU (0-0.59)
[2024-11-02 21:01] LABS: Troponin(5th) Baseline 13 ng/L (0-10)
[2024-11-02 21:08] LABS: Alanine Aminotransferase 8 U/L (0-33); Albumin Level 3.7 g/dL (3.5-5.2); Alkaline Phosphatase 104 U/L (35-105); Aspartate Amino Transferase 12 U/L (0-32); Blood Urea Nitrogen 34 mg/dL (8-23); Calcium 9.4 mg/dL (8.5-10.5); Carbon Dioxide 24 mmol/L (22-29); Chloride 89 mmol/L (98-107); Creatinine Clr Calc Pharmacy 83.1976; Globulin 2.3 g/dL (1.3-4.6); Glomerular Filtration Rate 101.6 mL/min (90-130); Glucose 150 mg/dL (65-115); Magnesium 2.2 mg/dL (1.7-2.3); NT Pro B Type Natriuretic Pept 245 pg/mL (0-125); Osmolality Calculated 270 mOsm/kg (285-295); Sodium 125 mmol/L (136-145); Total Bilirubin 0.2 mg/dL (0.15-1.2)
--- NOTE | 2024-11-02 21:16 | CTR_ITS ---
PROCEDURE INFORMATION: Exam: CTA Chest With Contrast Exam date and time: 11/02/2024 9:27 PM Age: 59 years old Clinical indication: Pain; Chest pressure; Additional info: Chest pain, SOB TECHNIQUE: Imaging protocol: Computed tomographic angiography of the chest with contrast. Exam focused on the arteries. 3D rendering (Not supervised by radiologist): MIP and/or 3D reconstructed images were created by the technologist. Radiation optimization: All CT scans at this facility use at least one of these dose optimization techniques: automated exposure control; mA and/or kV adjustment per patient size (includes targeted exams where dose is matched to clinical indication); or iterative reconstruction. Contrast material: OMNIPAQUE 350; Contrast volume: 100 ml; Contrast route: INTRAVENOUS (IV); COMPARISON: CR (CHEST, ) 11/02/2024 8:28 PM RADIATION DOSE METRICS: Total DLP (mGy-cm): 237.82 FINDINGS: Pulmonary arteries: Normal. No pulmonary emboli. Aorta: Unremarkable. No aortic aneurysm. No aortic dissection. Lungs: Right middle and lower lobe atelectasis versus infiltrate. Pleural spaces: Large right pleural effusion. Heart: Unremarkable. No cardiomegaly. No pericardial effusion. Lymph nodes: Scattered subcentimeter short axis nonspecific mediastinal lymph nodes. Liver: Hepatic steatosis. Bones/joints: Unremarkable. No acute fracture. Soft tissues: Unremarkable. CT/CT angio chest PE protcl [id number] IMPRESSION: 1. Negative for pulmonary embolus. 2. Large right pleural effusion. 3. Right middle and lower lobe atelectasis versus infiltrate. 4. Scattered subcentimeter short axis nonspecific mediastinal lymph nodes. 5. Hepatic steatosis.
[2024-11-02] MEDS: iohexol 350 mg/mL 500 mL Btl (per mL) IV (21:31)
[2024-11-02 21:44] LABS: Lactic Sepsis W/Reflex 0.9 mmol/L (0.5-2.2)
[2024-11-02 21:46] VITALS: BP 139/55; PULSE 102; O2SAT 96
[2024-11-02 21:50] LABS: Bilirubin Urine Negative (Negative); Blood Urine Negative (Negative); Glucose Urine UA Negative (Normal); Ketones Urine Trace (Negative); Leukocyte Esterase Urine Negative (Negative); Nitrate Urine Negative (Negative); Protein Urine Negative (Negative); Specific Gravity, Urine 1.014 (1.005-1.030); Urine Appearance Clear (CLEAR); Urine Color Yellow (Yellow); Urobilinogen Urine 0.2 mg/dL (Negative)
[2024-11-02 21:55] LABS: Add Urine Microscopic? YES; Bacteria Urine None Seen /hpf; Hyaline Casts Urine 0.81 /lpf; RBC Urine 0-2 /hpf (0-2); Squamous Epithelial Cell Urine 0-5 /hpf (0-5); WBC Urine 0-5 /hpf (0-5)
[2024-11-02 22:00] VITALS: BP 134/72; PULSE 102; O2SAT 94
--- NOTE | 2024-11-02 22:21 | ECG_ITS ---
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1965 Requested By: Samir Oakley Order Number: [id number] Reading MD: ANJU SALGADO Measurements Intervals [place] Rate: 102 P: 45 RI: 140 QRS: 61 QRSD: 97 T: 28 QT: 322 QTc: 420 Interpretive Statements SINUS TACHYCARDIA POSSIBLE LEFT ATRIAL ENLARGEMENT [-0.1mV P-WAVE IN V1/V2] LOW QRS VOLTAGE IN PRECORDIAL LEADS [QRS DEFLECTION < 1.0 mV IN CHEST LEADS] POSSIBLE ANTERIOR MYOCARDIAL INFARCTION , PROBABLY OLD [30 ms Q WAVE IN V3/V4, OR R < 0.2 mV IN V4] ABNORMAL RHYTHM ECG Compared to ECG 11/02/2024 20:46:37 Sinus rhythm no longer present Myocardial infarct finding still present Electronically Signed On 11-07-2024 21:02:46 CDT by ANJU SALGADO [id number] [id number]
[2024-11-02 22:30] VITALS: BP 114/51; PULSE 98; O2SAT 92
--- NOTE | 2024-11-02 22:32 | PM.HP ---
Providers/Chief Complaint Chief Complaint: Chest tightness,Sob History of Present Illness Irish Gaviria is a 59 year old female with a past medical history significant for type 2 diabetes mellitus on pioglitazone,, hypertension, and hyperlipidemia who presents emergency department with shortness of breath. Patient reports significant worsening in symptoms starting 3 to 4 days ago. Minimal exertion significantly worsens her symptoms. Denies alleviating factors. Denies fevers or chills. Endorses generalized malaise and fatigue. Patient also reports history of bowel obstruction. Reports constipation. States been several days since her bowel movement. She reports this is an ongoing issue. She notes she was recently prescribed lactulose without significant improvement. Outside records show an unremarkable colonoscopy on February 18, 2024 at at [facility] [place] with Dr Malloy. In emergency department, patient was found to be tachycardic. Labs revealed leukocytosis, thrombocytosis, hyponatremia, hypochloremia, and hyperglycemia. CT PE was negative for pulmonary embolism but showed large right pleural effusion, right middle and lower lobe atelectasis versus infiltrates scattered nonspecific mediastinal lymph nodes. Review of Systems Narrative: A complete review of systems was obtained and is negative except as stated in HPI. Medications/Allergies Home Medications ?Medication ?Instructions ?Recorded ?Confirmed ?Last Taken ?Type carvedilol 12.5 mg tablet See Rx Instructions .Route 10/26/23 10/16/24 Unknown Rx .COMPLEX #90 tabs lisinopril 20 mg tablet See Rx Instructions .Route 10/26/23 10/16/24 Unknown Rx .COMPLEX #90 tabs paroxetine HCl 20 mg tablet 20 mg PO DAILY hot flashes #90 tabs 10/26/23 10/16/24 Unknown Rx trazodone 150 mg tablet See Rx Instructions .Route 11/02/23 10/16/24 Unknown Rx .COMPLEX #90 tabs glimepiride 4 mg tablet 4 mg PO BID #180 tabs 12/29/23 10/16/24 Unknown Rx pravastatin 10 mg tablet 10 mg PO DAILY #90 tabs 12/29/23 10/16/24 Unknown Rx pioglitazone 15 mg tablet (Actos) 15 mg PO DAILY #90 tabs 03/28/24 10/16/24 Unknown Rx pregabalin 25 mg capsule (Lyrica) 25 mg PO DAILY #30 caps 03/28/24 10/16/24 Unknown Rx cyclobenzaprine 10 mg tablet See Rx Instructions .Route 08/29/24 10/16/24 Unknown Rx .COMPLEX #180 tabs lactulose 10 gram/15 mL oral 20 g (30 mL) PO TID #1,500 mL 10/09/24 10/16/24 Unknown Rx solution Allergies Allergy/AdvReac Type Severity Reaction Status Date / Time amitriptyline AdvReac Intermediate anxious Verified 11/02/24 19:15 atorvastatin (From Lipitor) AdvReac Intermediate cramps Verified 11/02/24 19:15 codeine AdvReac Intermediate Unknown Verified 11/02/24 19:15 gabapentin (From Neurontin) AdvReac Intermediate stomach Verified 11/02/24 19:15 pain lorazepam AdvReac Intermediate headaches Verified 11/02/24 19:15 simvastatin (From Zocor) AdvReac Intermediate leg cramps Verified 11/02/24 19:15 PFSH Acute PFSH: Medical History Hyperlipidemia Hypertension Diabetes mellitus type 2, controlled Surgical History History of neck surgery Family History Brother Stomach cancer Father Leukemia Social History Smoking and tobacco/nicotine status: never used tobacco/nicotine Alcohol intake: never Substance/Drug Use: never Vitals/I&O/Wt Last Vital Signs Temp 97.9 F 11/02/24 19:12 Pulse 98 11/02/24 22:30 Resp 18 11/02/24 19:12 BP 114/51 11/02/24 22:30 Pulse Ox 92 11/02/24 22:30 O2 Del Method Room Air 11/02/24 22:30 Weight last 48 hrs Weight 53.524 kg Physical Exam Narrative: General: Patient is awake and alert. Appears fatigued. Head: Normocephalic. Atraumatic. EOM intact. Neck: No JVD. Cardiovascular: RRR. No gallops. No murmurs. Lungs: Breath sounds markedly diminished in right base. Breath sounds are slightly diminished in left base. Conversational dyspnea. No crackles. No wheezing. Skin: No jaundice. No rashes. Abdomen: Hypoactive bowel sounds, abdomen soft and nontender. Genito Urinary: Genital exam not performed since complaints not related. Rectal: Rectal exam not performed since no symptoms indicated blood loss. Extremities: No cyanosis or clubbing. Musculoskeletal: No swollen or erythematous joints. Neurological: Moves all 4 extremities. No myoclonus. Data 11/02/24 20:26 11/02/24 20:26 A&P Assessment and plan (1) Hypertension: (2) Hyperlipidemia: (3) Dyspnea on exertion: (4) Diabetes mellitus type 2, controlled: (5) Hyponatremia: (6) Other thrombocytosis: (7) Pneumonia: Qualifiers: Laterality: right Lung location: unspecified part of lung Pneumonia type: due to unspecified organism Qualified Code(s): J18.9 - Pneumonia, unspecified organism (8) Pleural effusion: (9) Leukocytosis: (10) Azotemia: (11) Elevated brain natriuretic peptide (BNP) level: Plan Dyspnea on exertion Large right pleural effusion - Patient denies prior thoracentesis - Check serum LDH - Thoracentesis requested through IR - Thoracentesis labs requested - Check echocardiogram - Treat underlying pneumonia Right sided community-acquired pneumonia Sepsis (SIRS: Tachycardia; Leukocytosis / Source: CAP) - Follow cultures - Hold off on IVF boluses d/t respiratory symptoms and pleural effusion - Check procalcitonin and CRP - Urinary antigens requested - Start ceftriaxone/azithromycin Chronic hyponatremia, possibly hypervolemic given effusion - Check thyroid function - Hold SSRI - Checking echo for cardiac function - Check urine studies - Trend labs Chronic thrombocytosis - Peripheral smear requested Constipation - Check KUB - Start stool softeners Type 2 diabetes mellitus - Hold Actos, checking echo - Sliding-scale insulin correction Hypertension - Continue home medications Hyperlipidemia - Continue statin Hepatic steatosis - Likely NAFLD Neuropathy - Continue home med DVT ppx: Lovenox Code: Full Code PDMP PDMP Reviewed: Not Reviewed Attestations Medical Necessity Statement*: Pt presents with SOB, found to have sepsis 2/2 CAP and large right pleural effusion w/o prior work up with expected hospitalization not to cross two midnights for IV abx, hyponatremia eval, echo, thoracentesis and supportive care. Coding Level of Care Code Acute Code for g Fwd Diagnoses Hypertension I10 Hyperlipidemia E78.5 Dyspnea on exertion R06.09 Diabetes mellitus type 2, controlled E11.9 Hyponatremia E87.1 Other thrombocytosis D75.838 Pneumonia J18.9 Laterality: right Lung location: unspecified part of lung Pneumonia type: due to unspecified organism Pleural effusion J90 Leukocytosis D72.829 Azotemia R79.89 Elevated brain natriuretic peptide (BNP) level R79.89
[2024-11-02 23:02] LABS: Troponin 5 2HR 11.75 ng/L (0-10); Troponin 5 2HR Delta -1.25 ABS# (0-10)
[2024-11-02] MEDS: cefTRIAXone 1,000 mg SDV 1000 MG IVP (23:08)
[2024-11-02] MEDS: AZITHROMYCIN ADD-Vantage 500 MG in 0.9% NaCl ADD-Vantage 250 ML 250 MG IV (23:10)
[2024-11-02 23:20] VITALS: BP 114/52; PULSE 98; O2SAT 94
--- NOTE | 2024-11-02 23:31 | XRR_ITS ---
PROCEDURE INFORMATION: Exam: XR Abdomen Exam date and time: 11/03/2024 12:27 AM Age: 59 years old Clinical indication: Constipation; Additional info: Check stool burden TECHNIQUE: Imaging protocol: Radiologic exam of the abdomen. Views: Frontal supine view of the abdomen. 1 View. COMPARISON: CT abdomen pelvis w con* [id number] 10/09/2024 4:47 PM FINDINGS: Gastrointestinal tract: Moderate constipation without bowel dilation to indicate obstruction. Organs: Contrast in the urinary bladder. Bones/joints: Unremarkable. XR/XR abdomen 1V* [id number] IMPRESSION: 1. Moderate constipation without bowel dilation to indicate obstruction. 2. Contrast in the urinary bladder.
[2024-11-02 23:46] VITALS: BMI 24.6
[2024-11-02 23:57] LABS: C Reactive Protein 9.9 mg/L (0.0-4.9); Procalcitonin 0.14 ng/mL (0-0.5); Thyroid Stimulating Hormone 0.57 uIU/mL (0.27-4.20)
[2024-11-03] VITALS: BP 156/76; PULSE 101; RESP 17; TEMP 36.3; O2SAT 93
[2024-11-03 00:28] LABS: Creatinine Urine, Random 28 mg/dL (28-217); Potassium, Radom Urine 20 mmol/L; Urine Random Chloride 26 mmol/L; Urine Random Sodium 26 mmol/L
[2024-11-03] MEDS: cyclobenzaprine 10 mg Tablet PO ×2 (01:10→21:08)
[2024-11-03 02:53] LABS: Basophils % 0.1 %; Hematocrit 34.2 % (36-47); Lymphocytes # 0.9 10^3/uL (0.8-4.8); Lymphocytes % 5.7 %; Mean Corpuscular HGB Conc 33.3 g/dL (30-55); Mean Corpuscular Hemoglobin 29.2 pg (27-33); Mean Corpuscular Volume 87.7 fl (85-98); Mean Platelet Volume 8.5 fL (7.4-10.4); Monocytes # 1.1 10^3/uL (0.2-0.9); Monocytes % 7.5 %; Neutrophils # 12.82 10^3/uL (1.8-7.7); Neutrophils % 86.3 %; Nucleated Red Blood Cells % 0 %; Platelet Count 581 10^3/cmm (157-399); White Blood Count 14.86 10^3/uL (3.29-11.43)
[2024-11-03 03:18] LABS: Troponin 5 6HR 23.71 ng/L (0-10); Troponin 5 6HR Delta 10.71 ng/L (0-12)
[2024-11-03 03:19] LABS: Lactate Dehydrogenase 188 U/L (135-214)
[2024-11-03 03:20] LABS: Alanine Aminotransferase < 5 U/L (0-33); Albumin Level 3.1 g/dL (3.5-5.2); Alkaline Phosphatase 95 U/L (35-105); Anion Gap 14.4 (5-19); Aspartate Amino Transferase 14 U/L (0-32); Blood Urea Nitrogen 24 mg/dL (8-23); Calcium 8.1 mg/dL (8.5-10.5); Carbon Dioxide 23 mmol/L (22-29); Chloride 96 mmol/L (98-107); Creatinine Clr Calc Pharmacy 124.7964; Globulin 2.7 g/dL (1.3-4.6); Glomerular Filtration Rate 162.3 mL/min (90-130); Glucose 172 mg/dL (65-115); Magnesium 1.9 mg/dL (1.7-2.3); Osmolality Calculated 276 mOsm/kg (285-295); Phosphorus 2.6 mg/dL (2.5-4.5); Potassium 4.4 mmol/L (3.5-5.1); Sodium 129 mmol/L (136-145); Total Bilirubin 0.2 mg/dL (0.15-1.2); Total Protein 5.8 g/dL (6.6-8.7)
--- NOTE | 2024-11-03 03:45 | ECG_ITS ---
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 Measurements Intervals [place] Rate: 92 P: 64 ID: [id number] QRS: 57 QRSD: 109 T: 29 QT: 343 QTc: 425 Interpretive Statements SINUS RHYTHM POSSIBLE ANTERIOR MYOCARDIAL INFARCTION , PROBABLY OLD [30 ms Q WAVE IN V3/V4, OR R < 0.2 mV IN V4] Compared to ECG 11/02/2024 22:21:28 Sinus tachycardia no longer present Myocardial infarct finding still present Electronically Signed On 11-04-2024 10:43:28 CDT by Kim Carter M.D. [id number] [id number]
[2024-11-03 04:00] VITALS: BP 92/54; PULSE 96; RESP 17; TEMP 36.6; O2SAT 96
[2024-11-03 07:16] VITALS: BP 119/76; PULSE 95; RESP 16; TEMP 36.6; O2SAT 95
[2024-11-03 07:44] LABS: Glucose Point of Care 103 mg/dL (70-110)
--- NOTE | 2024-11-03 07:55 | PC.PHAR ---
Pt states Dr Crawford dc'd her Triamterene-hctz from 09/11/24 90ds. She is no longer taking it.
[2024-11-03 09:31] LABS: INR 1.01 (0.8-1.2)
[2024-11-03] MEDS: sennosides 8.6 mg Tablet 17.2 MG PO ×2 (10:30→17:29)
[2024-11-03] MEDS: pregabalin 25 mg Capsule PO (10:31)
[2024-11-03 11:00] VITALS: BP 120/70; PULSE 96; RESP 16; TEMP 36.4; O2SAT 93
[2024-11-03 11:39] LABS: Glucose Point of Care 88 mg/dL (70-110)
--- NOTE | 2024-11-03 12:06 | XR_ITS ---
WS: [id number] PORTABLE CHEST HISTORY: Status post thoracentesis, RIGHT. COMPARISON: 11/02/2024 No pneumothorax status post thoracentesis. Very small residual RIGHT pleural effusion with RIGHT basilar atelectasis. No pneumothorax. LEFT lung is clear. Cardiac size: Normal. Mediastinum/Aorta: Normal mediastinum. Mild AC joint arthritis. Prior cholecystectomy. XR/XR chest 1V portable [id number] IMPRESSION: 1. No pneumothorax status post RIGHT thoracentesis. 2. Very minimal residual RIGHT pleural effusion with RIGHT basilar atelectasis .
[2024-11-03 12:37] LABS: Apprearance, Body Fluid CLOUDY; Color, Body Fluid PALE YELLOW; Cyto Order Verification No Order; Fluid Laterality RIGHT
[2024-11-03 12:40] LABS: Body Fluid Polynuclear #Cells 0.688; Body Fluid WBC 4589 /uL; Monocytes # Body Fluid 3.901
[2024-11-03 12:45] LABS: PATH Referral YES
[2024-11-03 12:46] LABS: Body Fluid Specific Gravity 1.029
[2024-11-03 13:09] LABS: LAB Peripheral Smear Sent for Review
--- NOTE | 2024-11-03 13:19 | P.PN_ITS ---
Subjective 2 Subjective: No acute overnight events noted. Seen her at bedside this morning. Reports improvement in shortness of breath and feeling better. She is a new admission from overnight, 59-year-old with history of hypertension, hyperlipidemia, diabetes admitted with shortness of breath and found to have large right pleural effusion. Medications: Reviewed: Yes Vitals/I&O/Wt Last Vital Signs Temp 97.5 F L 11/03/24 11:00 Pulse 96 11/03/24 11:00 Resp 16 11/03/24 11:00 BP 120/70 11/03/24 11:00 Pulse Ox 93 11/03/24 11:00 O2 Del Method Room Air 11/03/24 11:00 11/02/24 11/03/24 11/03/24 22:59 06:59 14:59 Intake Total 1855.72 / 1855.72 Balance 1855.72 / 1855.72 Weight last 48 hrs Weight 56.835 kg Weight 53.524 kg Weight 53.524 kg Physical Exam 2 Narrative: General: Patient is awake and alert. Appears fatigued. Head: Normocephalic. Atraumatic. EOM intact. Neck: No JVD. Cardiovascular: RRR. No gallops. No murmurs. Lungs: Breath sounds markedly diminished in right base. Breath sounds are slightly diminished in mid to left base. No crackles. No wheezing. Skin: No jaundice. No rashes. Abdomen: Hypoactive bowel sounds, abdomen soft and nontender. Genito Urinary: Genital exam not performed since complaints not related. Rectal: Rectal exam not performed since no symptoms indicated blood loss. Extremities: No cyanosis or clubbing. Musculoskeletal: No swollen or erythematous joints. Neurological: Moves all 4 extremities. No myoclonus. Data 11/03/24 02:27 11/03/24 02:27 Micro: Microbiology 11/02/24 21:38 Bacterial Antigens - Final Urine,Clean Catch 11/02/24 23:00 Blood Culture - Preliminary Blood SPECIMEN COLLECTED 11/02/24 22:25 Blood Culture - Preliminary Blood SPECIMEN COLLECTED A&P Assessment and plan (1) Hypertension: (2) Hyperlipidemia: (3) Dyspnea on exertion: (4) Diabetes mellitus type 2, controlled: (5) Hyponatremia: (6) Other thrombocytosis: (7) Pneumonia: Qualifiers: Laterality: right Lung location: unspecified part of lung Pneumonia type: due to unspecified organism Qualified Code(s): J18.9 - Pneumonia, unspecified organism (8) Pleural effusion: (9) Leukocytosis: (10) Azotemia: (11) Elevated brain natriuretic peptide (BNP) level: Plan Dyspnea on exertion Large right pleural effusion - Patient denies prior thoracentesis - Check serum LDH - Thoracentesis requested through IR - Thoracentesis labs requested - Check echocardiogram - Treat underlying pneumonia Right sided community-acquired pneumonia Sepsis (SIRS: Tachycardia; Leukocytosis / Source: CAP) - Follow cultures - Hold off on IVF boluses d/t respiratory symptoms and pleural effusion - Check procalcitonin and CRP - Urinary antigens requested - Start ceftriaxone/azithromycin Chronic hyponatremia, possibly hypervolemic given effusion - Check thyroid function - Hold SSRI - Checking echo for cardiac function - Check urine studies - Trend labs Chronic thrombocytosis - Peripheral smear requested Constipation - Check KUB - Start stool softeners Type 2 diabetes mellitus - Hold Actos, checking echo - Sliding-scale insulin correction Hypertension - Continue home medications Hyperlipidemia - Continue statin Hepatic steatosis - Likely NAFLD Neuropathy - Continue home med DVT ppx: Lovenox Code: Full Code 11/03/24 WBC count trending down from 18.6-14.8 TSH 0.5 Sodium 129 3 sets of troponins 13, 11, 23, likely secondary to sepsis. She is s/p thoracentesis. Fluid studies pending Chest x-ray showed IMPRESSION: 1. No pneumothorax status post RIGHT thoracentesis. 2. Very minimal residual RIGHT pleural effusion with RIGHT basilar atelectasis. Will continue IV antibiotics ceftriaxone and azithromycin. Follow-up blood cultures. Follow-up 2D echo. Continue to monitor. PDMP PDMP Reviewed: Not Reviewed Attestations 2 Medical Necessity Statement*: Pt presents with SOB, found to have sepsis 2/2 CAP and large right pleural effusion w/o prior work up with expected hospitalization not to cross two midnights for IV abx, hyponatremia eval, echo, thoracentesis and supportive care. Time Spent in Patient Care: 20minutes Coding Level of Care Code Acute Code for Chg Fwd Diagnoses Hypertension I10 Hyperlipidemia E78.5 Dyspnea on exertion R06.09 Diabetes mellitus type 2, controlled E11.9 Hyponatremia E87.1 Other thrombocytosis D75.838 Pneumonia J18.9 Laterality: right Lung location: unspecified part of lung Pneumonia type: due to unspecified organism Pleural effusion J90 Leukocytosis D72.829 Azotemia R79.89 Elevated brain natriuretic peptide (BNP) level R79.89 Time Spent (min) 20
[2024-11-03] MEDS: famotidine 20 mg/2 mL INJ IVP (13:45)
[2024-11-03] MEDS: alum-mag-hydroxide-sime 30 mL UDC PO (13:45)
[2024-11-03 14:06] LABS: Albumin Body Fluid 2.8 g/dL; LDH Body Fluid 764 U/L; Total Protein Pleural Fluid 4.4 g/dL
[2024-11-03 15:31] VITALS: BP 123/75; PULSE 94; RESP 15; TEMP 36.4; O2SAT 97
[2024-11-03 16:52] LABS: Glucose Point of Care 116 mg/dL (70-110)
[2024-11-03] MEDS: carvedilol 12.5 mg Tablet 6.25 MG PO (17:29)
[2024-11-03 20:17] LABS: Glucose Point of Care 175 mg/dL (70-110)
[2024-11-03 20:56] VITALS: BP 125/71; PULSE 97; RESP 16; TEMP 36.7; O2SAT 92
[2024-11-03] MEDS: cefTRIAXone 1,000 mg SDV 1000 MG IVP (21:07)
[2024-11-03] MEDS: insulin lispro 100 unit/1 mL SUBCUT (21:08)
[2024-11-03] MEDS: trazodone 50 mg Tablet 25 MG PO (21:08)
--- NOTE | 2024-11-03 23:31 | USCV_ITS ---
Irish Gaviria Age: 59 Gender: F : 1965 Exam Date: 11/03/2024 00:43 Ordering Phys: Alex Yoo MD Technologist: LUKAS Exam Location: [facility] [place] Indication: SOB, RIGHT pleural effusion, LO, evaluate for CHF, history of DM2, HTN, HL BP: 156 / 76 HR: 93 Rhythm: Sinus Technical Quality: Adequate MEASUREMENTS (Male / Female) Normal Values 2D ECHO LV Diastolic Diameter PLAX 4.8 cm 4.2 - 5.9 / 3.9 - 5.3 cm IVS Diastolic Thickness 0.9 cm 0.6 - 1.0 / 0.6 - 0.9 cm IVS Systolic Thickness 1.3 cm LVPW Diastolic Thickness 0.8 cm 0.6 - 1.0 / 0.6 - 0.9 cm LVPW Systolic Thickness 1.1 cm LVOT Diameter 1.5 cm LV Ejection Fraction 2D Teich 61.4 % LV Ejection Fraction MOD 4C 63.9 % LV Ejection Fraction MOD 2C 74.4 % LV Ejection Fraction 2C AL 73.3 % LA Diameter 3.1 cm Aorta at Sinotubular Diameter 2.6 cm IVC Diameter 1.2 cm M-MODE LA Ao Ratio MM 1.2 AV Cusp Separation MM 1.6 cm DOPPLER AV Peak Velocity 149.0 cm/s LVOT Peak Velocity 81.0 cm/s AV Area Cont Eq vti 0.9 cm squared AV Area Cont Eq pk 1.0 cm squared MV Peak Velocity 116.0 cm/s MV Area PHT 4.7 cm squared Mitral E to A Ratio 0.8 TV Peak Velocity 252.0 cm/s TR Peak Velocity 261.0 cm/s TR Peak Gradient 27.2 mmHg TV Peak E Velocity 49.0 cm/s PV Peak Velocity 82.0 cm/s FINDINGS Left Ventricle Normal left ventricular size, systolic function and wall thickness, with no regional wall motion abnormalities. Left ventricular ejection fraction is estimated at 60 %. Grade I/IV diastolic dysfunction (abnormal relaxation filling pattern), normal to mildly elevated filling pressures. Right Ventricle The right ventricle is normal in size and function. Right Atrium The right atrium is normal in size. Left Atrium The left atrium is normal in size. Mitral Valve Structurally normal mitral valve without significant stenosis or prolapse. There is no mitral regurgitation. Aortic Valve Moderate aortic valve calcification. No aortic valve stenosis. Trace aortic valve regurgitation. Tricuspid Valve Mild to moderate tricuspid valve regurgitation. Pulmonic Valve Structurally normal pulmonic valve without significant stenosis. There is no pulmonic regurgitation. Pericardium Normal pericardium without effusion. Aorta Normal ascending aorta dimension. IVC The inferior vena cava appears normal. CONCLUSIONS Normal left ventricular size, systolic function and wall thickness, with no regional wall motion abnormalities. Left ventricular ejection fraction is estimated at 60 %. Grade I/IV diastolic dysfunction (abnormal relaxation filling pattern), normal to mildly elevated filling pressures. Moderate aortic valve calcification. No aortic valve stenosis. Trace aortic valve regurgitation. Mild to moderate tricuspid valve regurgitation. There is no pericardial effusion. Right atrial pressure is around 5 mm of mercury. Azeb Jc MD (Electronically Signed) Final Date: 03 November 2024 19:24 S
--- NOTE | 2024-11-03 23:31 | US_ITS ---
WS: [id number] ULTRASOUND-GUIDED THORACENTESIS, RIGHT HISTORY: Symptomatic right sided pleural effusion Procedure, risks, and complications were explained to the patient. With the patient in an upright position, the skin over the RIGHT posterior thorax was cleansed with ChloraPrep and anesthetized with 1% buffered lidocaine. A 5 [place] Yueh needle is inserted into the pleural fluid without complication. Approximately 800 cc of clear pleural fluid is removed without difficulty. Pleural fluid collected for analysis. / thoracentesis [id number] IMPRESSION: 1. RIGHT thoracentesis yielding 800 cc of fluid. 2. Chest radiograph to follow to evaluate for pneumothorax.
[2024-11-03] MEDS: AZITHROMYCIN ADD-Vantage 500 MG in 0.9% NaCl ADD-Vantage 250 ML 250 MG IV (23:38)
[2024-11-04 00:33] VITALS: BP 119/69; PULSE 85; RESP 16; TEMP 36.6; O2SAT 93
[2024-11-04] MEDS: acetaminophen 325 mg Tablet 650 MG PO ×4 (00:34→20:53)
[2024-11-04 04:53] VITALS: BP 120/73; PULSE 90; RESP 15; TEMP 36.6; O2SAT 94; BMI 26.1
[2024-11-04 05:33] LABS: Basophils % 0.3 %; Eosinophils # 0.2 10^3/uL (0.0-0.8); Eosinophils % 1.3 %; Hematocrit 34.6 % (36-47); Lymphocytes # 1.7 10^3/uL (0.8-4.8); Lymphocytes % 13.1 %; Mean Corpuscular HGB Conc 32.1 g/dL (30-55); Mean Corpuscular Hemoglobin 28.7 pg (27-33); Mean Corpuscular Volume 89.4 fl (85-98); Mean Platelet Volume 8.8 fL (7.4-10.4); Monocytes # 1.7 10^3/uL (0.2-0.9); Neutrophils % 71.8 %; Nucleated Red Blood Cells % 0 %; Platelet Count 536 10^3/cmm (157-399); Red Blood Count 3.87 10^6/uL (3.85-5.65); Red Cell Distribution Width 14.3 % (12.1-15.1); White Blood Count 12.95 10^3/uL (3.29-11.43)
[2024-11-04 05:59] LABS: Anion Gap 14.1 (5-19); Blood Urea Nitrogen 16 mg/dL (8-23); Calcium 8.2 mg/dL (8.5-10.5); Carbon Dioxide 24 mmol/L (22-29); Chloride 97 mmol/L (98-107); Creatinine Clr Calc Pharmacy 132.1992; Glomerular Filtration Rate 162.3 mL/min (90-130); Glucose 115 mg/dL (65-115); Osmolality Calculated 274 mOsm/kg (285-295); Potassium 4.1 mmol/L (3.5-5.1); Sodium 131 mmol/L (136-145)
[2024-11-04] MEDS: famotidine 20 mg/2 mL INJ IVP ×2 (06:03→17:25)
[2024-11-04 06:44] LABS: Glucose Point of Care 123 mg/dL (70-110)
[2024-11-04 07:52] VITALS: BP 122/73; PULSE 90; RESP 18; TEMP 36.7; O2SAT 97
[2024-11-04] MEDS: alum-mag-hydroxide-sime 30 mL UDC PO (08:53)
[2024-11-04] MEDS: carvedilol 12.5 mg Tablet 6.25 MG PO ×2 (08:53→17:25)
[2024-11-04] MEDS: sennosides 8.6 mg Tablet 17.2 MG PO ×2 (08:53→17:24)
[2024-11-04] MEDS: pregabalin 25 mg Capsule PO (08:54)
[2024-11-04 10:47] LABS: Glucose Point of Care 180 mg/dL (70-110)
[2024-11-04 11:37] VITALS: BP 105/66; PULSE 94; RESP 17; TEMP 36.6; O2SAT 97
[2024-11-04 12:08] LABS: Osmolality Urine 312 mOsm/kg (50-1200)
[2024-11-04] MEDS: insulin lispro 100 unit/1 mL SUBCUT ×2 (12:20→21:43)
--- NOTE | 2024-11-04 13:21 | P.PN_ITS ---
Subjective 2 Subjective: no acute overnight events noted, feeling much better today Medications: Reviewed: Yes Vitals/I&O/Wt Last Vital Signs Temp 97.9 F 11/04/24 11:37 Pulse 94 11/04/24 11:37 Resp 17 11/04/24 11:37 BP 105/66 11/04/24 11:37 Pulse Ox 97 11/04/24 11:37 O2 Del Method Room Air 11/04/24 11:37 11/03/24 11/04/24 11/04/24 22:59 06:59 14:59 Intake Total 358 / 358 550 / 908 240 / 240 Balance 358 / 358 550 / 908 240 / 240 Weight last 48 hrs Weight 56.699 kg Weight 56.835 kg Weight 53.524 kg Weight 53.524 kg Physical Exam 2 Narrative: General: Patient is awake and alert. Appears fatigued. Head: Normocephalic. Atraumatic. EOM intact. Neck: No JVD. Cardiovascular: RRR. No gallops. No murmurs. Lungs: Breath sounds markedly diminished in right base. Breath sounds are slightly diminished in left base. No crackles. No wheezing. slight tenderness at thoracentesis site Skin: No jaundice. No rashes. Abdomen: Hypoactive bowel sounds, abdomen soft and nontender. Genito Urinary: Genital exam not performed since complaints not related. Rectal: Rectal exam not performed since no symptoms indicated blood loss. Extremities: No cyanosis or clubbing. Musculoskeletal: No swollen or erythematous joints. Neurological: Moves all 4 extremities. No myoclonus. Data 11/04/24 04:23 11/04/24 04:23 Micro: Microbiology 11/03/24 12:20 Gram Stain - Final Pleural Fluid Body Fluid Culture - Preliminary 11/02/24 23:00 Blood Culture - Preliminary Blood NEGATIVE TO DATE 11/02/24 22:25 Blood Culture - Preliminary Blood NEGATIVE TO DATE 11/02/24 21:38 Bacterial Antigens - Final Urine,Clean Catch A&P Assessment and plan (1) Hypertension: (2) Hyperlipidemia: (3) Dyspnea on exertion: (4) Diabetes mellitus type 2, controlled: (5) Hyponatremia: (6) Other thrombocytosis: (7) Pneumonia: Qualifiers: Laterality: right Lung location: unspecified part of lung Pneumonia type: due to unspecified organism Qualified Code(s): J18.9 - Pneumonia, unspecified organism (8) Pleural effusion: (9) Leukocytosis: (10) Azotemia: (11) Elevated brain natriuretic peptide (BNP) level: Plan Dyspnea on exertion Large right pleural effusion - Patient denies prior thoracentesis - Check serum LDH - Thoracentesis requested through IR - Thoracentesis labs requested - Check echocardiogram - Treat underlying pneumonia Right sided community-acquired pneumonia Sepsis (SIRS: Tachycardia; Leukocytosis / Source: CAP) - Follow cultures - Hold off on IVF boluses d/t respiratory symptoms and pleural effusion - Check procalcitonin and CRP - Urinary antigens requested - Start ceftriaxone/azithromycin Chronic hyponatremia, possibly hypervolemic given effusion - Check thyroid function - Hold SSRI - Checking echo for cardiac function - Check urine studies - Trend labs Chronic thrombocytosis - Peripheral smear requested Constipation - Check KUB - Start stool softeners Type 2 diabetes mellitus - Hold Actos, checking echo - Sliding-scale insulin correction Hypertension - Continue home medications Hyperlipidemia - Continue statin Hepatic steatosis - Likely NAFLD Neuropathy - Continue home med DVT ppx: Lovenox Code: Full Code 11/03/24 WBC count trending down from 18.6-14.8 TSH 0.5 Sodium 129 3 sets of troponins 13, 11, 23, likely secondary to sepsis. She is s/p thoracentesis. Fluid studies pending Chest x-ray showed IMPRESSION: 1. No pneumothorax status post RIGHT thoracentesis. 2. Very minimal residual RIGHT pleural effusion with RIGHT basilar atelectasis. Will continue IV antibiotics ceftriaxone and azithromycin. Follow-up blood cultures. Follow-up 2D echo. Continue to monitor. 11/04/24 WBC trending down to 12.9. S/P thoracentesis, 800ml clear fluid drained. likely exudative as per lights criteria secondary to pneumonia. Patients SOB resolved. Currently on iV ceftriaxone and azithromycin. doing well, anticipating discharge in am. PDMP PDMP Reviewed: Not Reviewed Attestations 2 Medical Necessity Statement*: Anticipating discharge in 24 hours Time Spent in Patient Care: 15minutes Coding Level of Care Code Acute Code for Chg Fwd Diagnoses Hypertension I10 Hyperlipidemia E78.5 Dyspnea on exertion R06.09 Diabetes mellitus type 2, controlled E11.9 Hyponatremia E87.1 Other thrombocytosis D75.838 Pneumonia J18.9 Laterality: right Lung location: unspecified part of lung Pneumonia type: due to unspecified organism Pleural effusion J90 Leukocytosis D72.829 Azotemia R79.89 Elevated brain natriuretic peptide (BNP) level R79.89 Time Spent (min) 15
[2024-11-04 15:43] VITALS: BP 125/73; PULSE 90; RESP 17; TEMP 36.6; O2SAT 97
[2024-11-04 16:59] LABS: Glucose Point of Care 123 mg/dL (70-110)
[2024-11-04 20:39] VITALS: BP 115/73; PULSE 84; RESP 16; TEMP 36.6; O2SAT 94
[2024-11-04] MEDS: cefTRIAXone 1,000 mg SDV 1000 MG IVP (20:53)
[2024-11-04] MEDS: cyclobenzaprine 10 mg Tablet PO (20:53)
[2024-11-04] MEDS: trazodone 50 mg Tablet 25 MG PO (20:53)
[2024-11-04 21:25] LABS: Glucose Point of Care 188 mg/dL (70-110)
[2024-11-04] MEDS: AZITHROMYCIN ADD-Vantage 500 MG in 0.9% NaCl ADD-Vantage 250 ML 250 MG IV (23:58)
[2024-11-05 00:45] VITALS: BP 127/70; PULSE 78; RESP 16; TEMP 36.8; O2SAT 97
[2024-11-05 05:05] VITALS: BP 121/72; PULSE 86; RESP 15; TEMP 37.1; O2SAT 94
[2024-11-05] MEDS: famotidine 20 mg/2 mL INJ IVP (05:27)
[2024-11-05] MEDS: acetaminophen 325 mg Tablet 650 MG PO (05:36)
[2024-11-05 05:47] LABS: Basophils # 0.1 10^3/uL (0.0-0.1); Basophils % 0.3 %; Eosinophils # 0.2 10^3/uL (0.0-0.8); Eosinophils % 1.1 %; Hematocrit 35.6 % (36-47); Lymphocytes # 1.6 10^3/uL (0.8-4.8); Lymphocytes % 10.5 %; Mean Corpuscular HGB Conc 31.7 g/dL (30-55); Mean Corpuscular Hemoglobin 29.4 pg (27-33); Mean Corpuscular Volume 92.7 fl (85-98); Mean Platelet Volume 8.9 fL (7.4-10.4); Monocytes # 1.4 10^3/uL (0.2-0.9); Monocytes % 9.2 %; Neutrophils # 11.65 10^3/uL (1.8-7.7); Neutrophils % 78.3 %; Nucleated Red Blood Cells % 0 %; Platelet Count 386 10^3/cmm (157-399); Red Blood Count 3.84 10^6/uL (3.85-5.65); Red Cell Distribution Width 14.4 % (12.1-15.1); White Blood Count 14.89 10^3/uL (3.29-11.43)
[2024-11-05 06:00] VITALS: BMI 26.3
[2024-11-05 06:54] LABS: Glucose Point of Care 96 mg/dL (70-110)
[2024-11-05 07:41] VITALS: BP 120/77; PULSE 86; RESP 16; TEMP 36.8; O2SAT 97
[2024-11-05] MEDS: sennosides 8.6 mg Tablet 17.2 MG PO (08:28)
[2024-11-05] MEDS: carvedilol 12.5 mg Tablet 6.25 MG PO (08:29)
[2024-11-05] MEDS: alum-mag-hydroxide-sime 30 mL UDC PO (08:29)
[2024-11-05] MEDS: pregabalin 25 mg Capsule PO (08:52)
--- NOTE | 2024-11-05 09:57 | PM.DCS ---
Discharge Providers Date of Admission: 11/02/24 22:34 Date of Discharge: November 05, 2024 Attending Provider at Admission: Alex Yoo MD Attending Provider at Discharge: Jolanta Rapp MD Diagnoses at Discharge Discharge Diagnosis (1) Hypertension: Status: Acute (2) Hyperlipidemia: Status: Acute (3) Dyspnea on exertion: Status: Acute (4) Diabetes mellitus type 2, controlled: Status: Acute (5) Hyponatremia: Status: Acute (6) Other thrombocytosis: Status: Acute (7) Pneumonia: Status: Acute Qualifiers: Laterality: right Lung location: unspecified part of lung Pneumonia type: due to unspecified organism Qualified Code(s): J18.9 - Pneumonia, unspecified organism (8) Pleural effusion: Status: Acute (9) Leukocytosis: Status: Acute (10) Azotemia: Status: Acute (11) Elevated brain natriuretic peptide (BNP) level: Status: Acute Reason for Visit Reason for Visit: Chest tightness,Sob Brief History: Irish Gaviria is a 59 year old female with a past medical history significant for type 2 diabetes mellitus on pioglitazone,, hypertension, and hyperlipidemia who presents emergency department with shortness of breath. Patient reports significant worsening in symptoms starting 3 to 4 days ago. Minimal exertion significantly worsens her symptoms. Denies alleviating factors. Denies fevers or chills. Endorses generalized malaise and fatigue. Patient also reports history of bowel obstruction. Reports constipation. States been several days since her bowel movement. She reports this is an ongoing issue. She notes she was recently prescribed lactulose without significant improvement. Outside records show an unremarkable colonoscopy on February 18, 2024 at at [facility] [place] with Dr Malloy. In emergency department, patient was found to be tachycardic. Labs revealed leukocytosis, thrombocytosis, hyponatremia, hypochloremia, and hyperglycemia. CT PE was negative for pulmonary embolism but showed large right pleural effusion, right middle and lower lobe atelectasis versus infiltrates scattered nonspecific mediastinal lymph nodes. Hospital Course Hospital Course Dyspnea on exertion Large right pleural effusion - Patient denies prior thoracentesis - Check serum LDH - Thoracentesis requested through IR - Thoracentesis labs requested - Check echocardiogram - Treat underlying pneumonia Right sided community-acquired pneumonia Sepsis (SIRS: Tachycardia; Leukocytosis / Source: CAP) - Follow cultures - Hold off on IVF boluses d/t respiratory symptoms and pleural effusion - Check procalcitonin and CRP - Urinary antigens requested - Start ceftriaxone/azithromycin 11/03/24 WBC count trending down from 18.6-14.8 TSH 0.5 Sodium 129 3 sets of troponins 13, 11, 23, likely secondary to sepsis. She is s/p thoracentesis. Fluid studies pending Chest x-ray showed IMPRESSION: 1. No pneumothorax status post RIGHT thoracentesis. 2. Very minimal residual RIGHT pleural effusion with RIGHT basilar atelectasis. Will continue IV antibiotics ceftriaxone and azithromycin. Follow-up blood cultures. Follow-up 2D echo. Continue to monitor. 11/04/24 WBC trending down to 12.9. S/P thoracentesis, 800ml clear fluid drained. likely exudative as per lights criteria secondary to pneumonia. Patients SOB resolved. Currently on iV ceftriaxone and azithromycin. She is doing well, ambulating, SOB resolved. Fluid studies have been negative so far. ECHO was Normal left ventricular size, systolic function and wall thickness, with no regional wall motion abnormalities. Left ventricular ejection fraction is estimated at 60 %. Grade I/IV diastolic dysfunction (abnormal relaxation filling pattern), normal to mildly elevated filling pressures. Moderate aortic valve calcification. No aortic valve stenosis. Trace aortic valve regurgitation. Mild to moderate tricuspid valve regurgitation. There is no pericardial effusion. Right atrial pressure is around 5 mm of mercury. Leucocyte count is 14.8 today but clinically improved, hence Will discharge her home with po levofloxacin for 2 weeks, and follow up with primary care in 1 week. Physical Exam Narrative: General: Patient is awake and alert. Appears fatigued. Head: Normocephalic. Atraumatic. EOM intact. Neck: No JVD. Cardiovascular: RRR. No gallops. No murmurs. Lungs: Breath sounds markedly diminished in right base. Breath sounds are slightly diminished in left base. No crackles. No wheezing. slight tenderness at thoracentesis site Skin: No jaundice. No rashes. Abdomen: Hypoactive bowel sounds, abdomen soft and nontender. Genito Urinary: Genital exam not performed since complaints not related. Rectal: Rectal exam not performed since no symptoms indicated blood loss. Extremities: No cyanosis or clubbing. Musculoskeletal: No swollen or erythematous joints. Neurological: Moves all 4 extremities. No myoclonus. Discharge Data Studies Completed and Pending Completed Studies During Hospitalization Category Date Time Status CT angio chest PE protcl [id number] Stat Cat Scan 11/02/24 21:16 Completed XR abdomen 1V* [id number] Routine Exams 11/02/24 23:31 Completed XR chest 1V portable [id number] Stat Exams 11/02/24 20:19 Completed XR chest 1V portable [id number] Stat Exams 11/03/24 12:06 Completed CV. echo complete* [id number] Routine Ultrasound 11/03/24 23:31 Completed US thoracentesis [id number] Routine Ultrasound 11/03/24 23:31 Completed Pending at discharge Category Date Time Status Anaerobic Culture Routine Lab 11/02/24 23:31 Results Blood Culture Stat Lab 11/02/24 23:00 Results Body Fluid Culture & GS Routine Lab 11/02/24 23:31 Results Radiology Impressions Chest CTA 11/02/24 21:16 IMPRESSION: 1. Negative for pulmonary embolus. 2. Large right pleural effusion. 3. Right middle and lower lobe atelectasis versus infiltrate. 4. Scattered subcentimeter short axis nonspecific mediastinal lymph nodes. 5. Hepatic steatosis. Abdomen X-Ray 11/02/24 23:31 IMPRESSION: 1. Moderate constipation without bowel dilation to indicate obstruction. 2. Contrast in the urinary bladder. Chest X-Ray 11/03/24 12:06 IMPRESSION: 1. No pneumothorax status post RIGHT thoracentesis. 2. Very minimal residual RIGHT pleural effusion with RIGHT basilar atelectasis. Thoracentesis Ultrasound 11/03/24 23:31 IMPRESSION: 1. RIGHT thoracentesis yielding 800 cc of fluid. 2. Chest radiograph to follow to evaluate for pneumothorax. Laboratory Results WBC 14.89 10^3/uL (3.29-11.43) H 11/05/24 05:21 RBC 3.84 10^6/uL (3.85-5.65) L 11/05/24 05:21 Hgb 11.30 g/dL (11.27-16.99) 11/05/24 05:21 Hct 35.6 % (36-47) L 11/05/24 05:21 MCV 92.7 fl (85-98) 11/05/24 05:21 MCH 29.4 pg (27-33) 11/05/24 05:21 MCHC 31.7 g/dL (30-55) 11/05/24 05:21 RDW 14.4 % (12.1-15.1) 11/05/24 05:21 Plt Count 386 10^3/cmm (157-399) 11/05/24 05:21 MPV 8.9 fL (7.4-10.4) 11/05/24 05:21 Neut % (Auto) 78.3 % 11/05/24 05:21 Lymph % (Auto) 10.5 % 11/05/24 05:21 [place] % (Auto) 9.2 % 11/05/24 05:21 Eos % (Auto) 1.1 % 11/05/24 05:21 Baso % (Auto) 0.3 % 11/05/24 05:21 Neut # (Auto) 11.65 10^3/uL (1.8-7.7) H 11/05/24 05:21 Lymph # (Auto) 1.6 10^3/uL (0.8-4.8) 11/05/24 05:21 [place] # (Auto) 1.4 10^3/uL (0.2-0.9) H 11/05/24 05:21 Eos # (Auto) 0.2 10^3/uL (0.0-0.8) 11/05/24 05:21 Baso # (Auto) 0.1 10^3/uL (0.0-0.1) 11/05/24 05:21 Nucleated RBC % (auto) 0 % 11/05/24 05:21 Nucleated RBCs # 0.0 /100WBC 11/05/24 05:21 Differential Comment Yes 11/03/24 12:20 Peripher Smr Path Cons Sent for review 11/03/24 02:27 PT 14.00 SECONDS (12.1-14.9) 11/03/24 08:27 INR 1.01 (0.8-1.2) 11/03/24 08:27 D-Dimer 1.77 ug/mLFEU (0-0.59) H 11/02/24 20:26 Sodium 131 mmol/L (136-145) L 11/04/24 04:23 Potassium 4.1 mmol/L (3.5-5.1) 11/04/24 04:23 Chloride 97 mmol/L (98-107) L 11/04/24 04:23 Carbon Dioxide 24 mmol/L (22-29) 11/04/24 04:23 Anion Gap 14.1 (5-19) 11/04/24 04:23 BUN 16 mg/dL (8-23) 11/04/24 04:23 Creatinine 0.4 mg/dL (0.5-0.9) L 11/04/24 04:23 GFR Calculation 162.3 mL/min (90-130) H 11/04/24 04:23 Glucose 115 mg/dL (65-115) 11/04/24 04:23 POC Glucose 96 mg/dL (70-110) 11/05/24 06:47 Calculated Osmolality 274 mOsm/kg (285-295) L 11/04/24 04:23 Lactic Acid 0.9 mmol/L (0.5-2.2) 11/02/24 20:26 Calcium 8.2 mg/dL (8.5-10.5) L 11/04/24 04:23 Phosphorus 2.6 mg/dL (2.5-4.5) 11/03/24 02:27 Magnesium 1.9 mg/dL (1.7-2.3) 11/03/24 02:27 Total Bilirubin 0.2 mg/dL (0.15-1.2) 11/03/24 02:27 AST 14 U/L (0-32) 11/03/24 02:27 ALT < 5 U/L (0-33) 11/03/24 02:27 Alkaline Phosphatase 95 U/L (35-105) 11/03/24 02:27 Lactate Dehydrogenase 188 U/L (135-214) 11/03/24 02:27 Troponin T Baseline 13 ng/L (0-10) H 11/02/24 20:26 Troponin T 120 Minute 11.75 ng/L (0-10) H 11/02/24 22:25 Delta Troponin T -1.25 ABS# (0-10) L 11/02/24 22:25 Troponin T Hi Sens 6Hr 23.71 ng/L (0-10) H 11/03/24 02:27 Troponin T Hi Sens 6Hr Delta 10.71 ng/L (0-12) 11/03/24 02:27 C-Reactive Protein 9.9 mg/L (0.0-4.9) H 11/02/24 22:25 NT-Pro-B Natriuret Pep 245 pg/mL (0-125) H 11/02/24 20:26 Total Protein 5.8 g/dL (6.6-8.7) L 11/03/24 02:27 Albumin 3.1 g/dL (3.5-5.2) L 11/03/24 02:27 Globulin 2.7 g/dL (1.3-4.6) 11/03/24 02:27 Procalcitonin 0.14 ng/mL (0-0.5) 11/02/24 22:25 TSH 0.57 uIU/mL (0.27-4.20) 11/02/24 22:25 Urine Color Yellow (Yellow) 11/02/24 21:46 Urine Appearance Clear (CLEAR) 11/02/24 21:46 Urine pH 6.0 (5-7) 11/02/24 21:46 Ur Specific [place] 1.014 (1.005-1.030) 11/02/24 21:46 Urine Protein Negative (Negative) 11/02/24 21:46 Urine Glucose (UA) Negative (Normal) 11/02/24 21:46 Urine Ketones Trace (Negative) 11/02/24 21:46 Urine Blood Negative (Negative) 11/02/24 21:46 Urine Nitrate Negative (Negative) 11/02/24 21:46 Urine Bilirubin Negative (Negative) 11/02/24 21:46 Urine Urobilinogen 0.2 mg/dL (Negative) 11/02/24 21:46 Ur Leukocyte Esterase Negative (Negative) 11/02/24 21:46 Urine RBC 0-2 /hpf (0-2) 11/02/24 21:46 Urine WBC 0-5 /hpf (0-5) 11/02/24 21:46 Ur Squamous Epith Cells 0-5 /hpf (0-5) 11/02/24 21:46 Amorphous Sediment Not Reportable 11/02/24 21:46 Urine Bacteria None seen /hpf (NONE) 11/02/24 21:46 Hyaline Casts 0.81 /lpf 11/02/24 21:46 Urine Osmolality 312 mOsm/kg (50-1200) 11/02/24 21:38 Ur Random Sodium 26 mmol/L 11/02/24 21:38 Ur Random Potassium 20 mmol/L 11/02/24 21:38 Ur Random Chloride 26 mmol/L 11/02/24 21:38 Urine Creatinine 28 mg/dL (28-217) 11/02/24 21:38 Fluid Color Pale yellow 11/03/24 12:20 Fluid Appearance Cloudy 11/03/24 12:20 Fluid Specific Grav 1.029 11/03/24 12:20 Fluid pH 7.0 11/03/24 12:20 Fluid WBC 4589 /uL 11/03/24 12:20 Fluid RBC 3.000 10^3/uL 11/03/24 12:20 Fld Polynuclear WBCs # 0.688 11/03/24 12:20 Fld Polynuclear WBCs % 14.900 % 11/03/24 12:20 Fl Mononucl WBCs #(Auto) 3.901 11/03/24 12:20 Fl Mononuclear % Auto 85.100 % 11/03/24 12:20 Fld Crystal Laterality Right 11/03/24 12:20 Fluid Glucose 9.0 mg/dL 11/03/24 12:20 Fluid Albumin 2.8 g/dL 11/03/24 12:20 Fluid LDH 764 U/L 11/03/24 12:20 Pleural Total Protein 4.4 g/dL 11/03/24 12:20 Vitals Last Vital Signs Temp 98.3 F 11/05/24 07:41 Pulse 86 11/05/24 07:41 Resp 16 11/05/24 07:41 BP 120/77 11/05/24 07:41 Pulse Ox 97 11/05/24 07:41 O2 Del Method Room Air 11/05/24 07:41 Discharge Plan Discharge Patient Disposition: Home Condition: Stable Prescriptions: New alum-mag hydroxide-simeth [Mag-Al Plus] 200-200-20 mg/5 mL Suspension 30 ml PO DAILY 14 Days Qty: 450 0RF levofloxacin 750 mg tablet 750 mg PO DAILY 14 Days Qty: 14 0RF docusate sodium [Colace] 100 mg capsule 100 mg PO BID Qty: 14 0RF famotidine [Pepcid] 20 mg tablet 20 mg PO BEDTIME 14 Days Qty: 14 0RF Continued carvedilol 12.5 mg tablet See Rx Instructions .ROUTE .COMPLEX Qty: 90 11RF Dose Instruction: take 1/2 tablet BY MOUTH TWICE DAILY Rx Instructions: take 1/2 tablet BY MOUTH TWICE DAILY paroxetine HCl 20 mg tablet 20 mg PO DAILY Qty: 90 11RF glimepiride 4 mg tablet 4 mg PO BID Qty: 180 11RF pioglitazone [Actos] 15 mg tablet 15 mg PO DAILY Qty: 90 11RF cyclobenzaprine 10 mg tablet See Rx Instructions .ROUTE .COMPLEX Qty: 180 7RF Dose Instruction: TAKE 1 TABLET BY MOUTH THREE TIMES DAILY NEEDED FOR MUSCLE CRAMPS *MAY CAUSE DROWSINESS* Rx Instructions: TAKE 1 TABLET BY MOUTH THREE TIMES DAILY NEEDED FOR MUSCLE CRAMPS *MAY CAUSE DROWSINESS* pravastatin 40 mg tablet 40 mg PO DAILY omeprazole 40 mg capsule,delayed release(DR/EC) 40 mg PO DAILY celecoxib 100 mg capsule 100 mg PO BID PRN (Reason: Pain) lisinopril 20 mg tablet 20 mg PO QAM trazodone 150 mg tablet 75 - 150 mg PO QPM lactulose 10 gram/15 mL solution 20 g PO BID Discontinued prednisone 20 mg tablet 20 mg PO BID Discharge Orders: Discharge Order (Routine); Ordered 11/05/24 Ordered By: Jolanta Rapp Referrals: Jose Alberto Singleton MD [Referring] - 11/14/24 1:30 pm Modesto Crawford MD [Staff Physician] - 11/14/24 Discharge Diet: Cardiac Discharge Activity: Increase activity as tolerated Patient Instructions: Opioid Safety Discharge Attestations Time Spent in Discharge Care*: less than 30 min Quality Metrics Clinical Quality Measures [ No reported AMI, CVA or VTE this stay] Coding Level of Care Code Acute Code for [facility] Fwd Diagnoses Hypertension I10 Hyperlipidemia E78.5 Dyspnea on exertion R06.09 Diabetes mellitus type 2, controlled E11.9 Hyponatremia E87.1 Other thrombocytosis D75.838 Pneumonia J18.9 Laterality: right Lung location: unspecified part of lung Pneumonia type: due to unspecified organism Pleural effusion J90 Leukocytosis D72.829 Azotemia R79.89 Elevated brain natriuretic peptide (BNP) level R79.89 Time Spent (min) 20
== END 2024-11-05 11:20 | disposition home or self-care (01) ==
LOC: ER 22:43 → MEDSURG 22:57
PROVIDERS: Admitting Provider Internal Medicine; Emergency Provider Student in an Organized Health Care Education/Training Program; Visit Provider Internal Medicine
DX: J18.9 Pneumonia, unspecified organism (principal); D72.829 Elevated white blood cell count, unspecified; R79.89 Other specified abnormal findings of blood chemistry; I10 Essential (primary) hypertension; E78.5 Hyperlipidemia, unspecified; E11.9 Type 2 diabetes mellitus without complications; E87.1 Hypo-osmolality and hyponatremia; J90 Pleural effusion, not elsewhere classified; K21.9 Gastro-esophageal reflux disease without esophagitis; Z79.84 Long term (current) use of oral hypoglycemic drugs; K59.00 Constipation, unspecified
CPT/HCPCS: 32555; 36415; 36416; 71045; 71275; 74018; 80048; 80053; 80503; 81001; 82042; 82436; 82575; 82945; 82962; 83605; 83615; 83735; 83880; 83935; 83986; 84100; 84133; 84145; 84157; 84300; 84315; 84443; 84484; 85025; 85378; 85610; 86140; 86403; 87040; 87070; 87075; 87205; 89050; 93005; 93306; 96365; 96366; 96372; 96375; 96376; 99285; G0378; J0456; J0696; J1815; J3490; J7030; J7050; J9999

== ENCOUNTER 2024-11-07 09:47 | Inpatient (IN) | payer OTHER, SELFPAY ==
[2024-11-07] VITALS (12 sets, daily range): BP systolic 107–138; BP diastolic 59–97; PULSE 87–101; RESP 16–20; TEMP 36.5–36.6; O2SAT 93–100; BMI 24.2
[2024-11-07 11:29] LABS: Basophils % 0.2 %; Eosinophils # 0.1 10^3/uL (0.0-0.8); Eosinophils % 0.4 %; Hematocrit 38.6 % (36-47); Lymphocytes # 1.4 10^3/uL (0.8-4.8); Lymphocytes % 8.6 %; Mean Corpuscular HGB Conc 32.6 g/dL (30-55); Mean Corpuscular Hemoglobin 28.6 pg (27-33); Mean Corpuscular Volume 87.7 fl (85-98); Mean Platelet Volume 9.1 fL (7.4-10.4); Monocytes # 1.6 10^3/uL (0.2-0.9); Monocytes % 9.7 %; Neutrophils # 13.44 10^3/uL (1.8-7.7); Neutrophils % 80.7 %; Nucleated Red Blood Cells % 0 %; Platelet Count 695 10^3/cmm (157-399); Red Cell Distribution Width 14.1 % (12.1-15.1); White Blood Count 16.65 10^3/uL (3.29-11.43)
--- NOTE | 2024-11-07 11:36 | W.ED.GENADLT ---
HPI - General Adult General: Chief complaint: General Medical Stated complaint: fluid retention Time Seen by Provider: 11/07/24 11:36 History of Present Illness: 59-year-old female with history of chronic hyponatremia, hyperlipidemia, hypertension and diabetes who presents the emergency room with continued shortness of breath and abdominal swelling. She was discharged from the hospital recently after being treated for a pleural effusion with a thoracentesis and for pneumonia with antibiotics. She says she is never really been told what was going on with her abdomen. She also feels like she has got more short of breath again as well. She has issues with constipation. No known history of cirrhosis. Review of chart shows some mild ascites but she did not have any stigmata of cirrhosis. Related Data Home Medications ?Medication ?Instructions ?Recorded ?Confirmed celecoxib 100 mg capsule 100 mg PO BID PRN Pain 11/03/24 11/07/24 lactulose 10 gram/15 mL oral 20 g PO BID 11/03/24 11/07/24 solution lisinopril 20 mg tablet 20 mg PO QAM 11/03/24 11/07/24 omeprazole 40 mg capsule,delayed 40 mg PO DAILY 11/03/24 11/07/24 release pravastatin 40 mg tablet 40 mg PO DAILY 11/03/24 11/07/24 trazodone 150 mg tablet 75 - 150 mg PO QPM insomnia 11/03/24 11/07/24 Previous Rx's ?Medication ?Instructions ?Recorded carvedilol 12.5 mg tablet See Rx Instructions .Route 10/26/23 .COMPLEX #90 tabs paroxetine HCl 20 mg tablet 20 mg PO DAILY hot flashes #90 tabs 10/26/23 glimepiride 4 mg tablet 4 mg PO BID #180 tabs 12/29/23 pioglitazone 15 mg tablet (Actos) 15 mg PO DAILY #90 tabs 03/28/24 cyclobenzaprine 10 mg tablet See Rx Instructions .Route 08/29/24 .COMPLEX #180 tabs docusate sodium 100 mg capsule 100 mg PO BID #14 caps 11/05/24 (Colace) famotidine 20 mg tablet (Pepcid) 20 mg PO BEDTIME 14 days #14 tabs 11/05/24 levofloxacin 750 mg tablet 750 mg PO DAILY 14 days #14 tabs 11/05/24 Allergies Allergy/AdvReac Type Severity Reaction Status Date / Time amitriptyline AdvReac Intermediate anxious Verified 11/07/24 10:38 atorvastatin (From Lipitor) AdvReac Intermediate cramps Verified 11/07/24 10:38 codeine AdvReac Intermediate Unknown Verified 11/07/24 10:38 gabapentin (From Neurontin) AdvReac Intermediate stomach Verified 11/07/24 10:38 pain lorazepam AdvReac Intermediate headaches Verified 11/07/24 10:38 simvastatin (From Zocor) AdvReac Intermediate leg cramps Verified 11/07/24 10:38 Review of Systems Narrative: Constitutional symptoms: Negative except as documented in HPI. Skin symptoms: Negative except as documented in HPI. Eye symptoms: Negative except as documented in HPI. ENMT symptoms: Negative except as documented in HPI. Respiratory symptoms: Negative except as documented in HPI. Cardiovascular symptoms: Negative except as documented in HPI. Gastrointestinal symptoms: Negative except as documented in HPI. Genitourinary symptoms: Negative except as documented in HPI. Musculoskeletal symptoms: Negative except as documented in HPI. Neurologic symptoms: Negative except as documented in HPI. Psychiatric symptoms: Negative except as documented in HPI. Endocrine symptoms: Negative except as documented in HPI. PFSH ED PFSH: Medical History Hyperlipidemia Hypertension Diabetes mellitus type 2, controlled Surgical History History of neck surgery Family History Brother Stomach cancer Father Leukemia Social History Smoking and tobacco/nicotine status: never used tobacco/nicotine Alcohol intake: never Substance/Drug Use: never Physical Exam Narrative: EXAM NARRATIVE: General: Alert, no acute distress. Skin: Warm, dry. Head: Normocephalic, atraumatic. Neck: Supple, trachea midline. Eye: Extraocular movements are intact. Ears, nose, mouth and throat: mucosa moist. Cardiovascular: Regular, Normal peripheral perfusion. Respiratory: Diminished breath sounds on the posterior right. No wheeze. No crackles. No increased work of breathing. Gastrointestinal: Soft, Nontender, Non distended Musculoskeletal: Normal ROM, no deformity. Neurological: Alert and oriented, No focal neurological deficit observed. Psychiatric: Cooperative, appropriate mood & affect. Course Vital Signs: Vital signs: Vital Signs Temperature 97.9 F 11/07/24 10:31 Pulse Rate 93 11/07/24 13:00 Respiratory Rate 18 11/07/24 10:31 Blood Pressure 137/71 11/07/24 13:00 Pulse Oximetry 95 11/07/24 13:00 Oxygen Delivery Me thod Room Air 11/07/24 13:00 MDM - General Adult Medical Decision Making Differential diagnosis for patient with shortness of breath includes but is not limited to and based on the above HPI, review of systems and physical exam: Pneumonia. Bronchitis. Asthma or COPD with acute exacerbation. Acute coronary syndrome / MD. Pulmonary embolism. Anxiety. Congestive heart failure. Viral infections including influenza and Covid-19. Atrial fibrillation. Anxiety. Pleural effusion. Pneumothorax. Orders placed to evaluate differential diagnosis based on the above differential, HPI and physical exam Chest x-ray: Stable moderate right pleural effusion. This was reviewed and interpreted by myself the emergency room physician. I also reviewed the radiology report. Lab Review: Laboratory results were reviewed and interpreted by myself the emergency room physician. Continued leukocytosis with a white count slightly more elevated than previous at 16.65. No anemia. Platelets are high. Sodium is 128 which is low but near her baseline. CT of the chest abdomen and pelvis with contrast: Moderate right and small left pleural effusions. The right pleural effusion has increased in size since thoracentesis. Right basilar atelectasis. No renal obstruction. Small amount of ascites. Increasing constipation. Nondilated small bowel but increasing fluid distally. Perhaps enteritis. No free air. This was reviewed and interpreted by myself the emergency room physician. I also reviewed the radiology report. I reviewed the patient's medical record. During her recent hospital stay she had a CTA that was negative for PE but had a large right pleural effusion and some hepatic steatosis. She had an echocardiogram with grade 1 of 4 diastolic dysfunction but normal ejection fraction. Pleural fluid was evaluated and no evidence of malignancy. Reexamination: Patient remained stable. No increased work of breathing. No altered mental status. No focal motor deficits. We spoke at length about her issues with her bowels. She seems frustrated that it has not been addressed. I discussed with her that she had a colonoscopy a year ago that was normal. She has had multiple CT scans that just so constipation. 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 Consultation: I spoke with Dr. Bland who is on-call for the hospitalist service who agrees to observation for thoracentesis. Assessment and plan: Pleural effusion Constipation -I discussed the patient with the hospitalist on-call who is admitting the patient. - Discussed findings and plan with patient. Answered any questions. - All laboratory values were reviewed and interpreted personally by myself, the ER physician - All imaging was reviewed and interpreted personally by myself, the ER physician. - Evaluation and treatment of this problem were appropriate in the emergency setting Lab Data 11/07/24 09:22 11/07/24 09:22 Radiology Impressions Chest X-Ray 11/07/24 11:38 IMPRESSION: Stable moderate right pleural effusion. Chest/Abdomen/Pelvis CT 11/07/24 11:51 IMPRESSION: 1. Moderate RIGHT and small LEFT pleural effusions. RIGHT pleural effusion has increased in size since the recent thoracentesis. 2. RIGHT basilar atelectasis. 3. No renal obstruction. 4. Small amount of ascites. 5. Increasing constipation throughout the colon. There is a segment of proximal sigmoid colon that is not well visualized. Consider colonoscopy for better evaluation. 6. Nondilated small bowel but there is increasing fluid distally. There is mild enhancement of the small bowel suggesting enteritis. Correlate for possible mild viral enteritis. 7. Prior appendectomy. 8. No free air. 9. Mildly dilated endometrium. Consider transvaginal pelvic ultrasound evaluation on a nonurgent basis. Laboratory Results WBC 16.65 10^3/uL (3.29-11.43) H 11/07/24 09:22 RBC 4.40 10^6/uL (3.85-5.65) 11/07/24 09:22 Hgb 12.60 g/dL (11.27-16.99) 11/07/24 09:22 Hct 38.6 % (36-47) 11/07/24 09:22 MCV 87.7 fl (85-98) 11/07/24 09:22 MCH 28.6 pg (27-33) 11/07/24 09:22 MCHC 32.6 g/dL (30-55) 11/07/24 09:22 RDW 14.1 % (12.1-15.1) 11/07/24 09:22 Plt Count 695 10^3/cmm (157-399) H 11/07/24 09:22 MPV 9.1 fL (7.4-10.4) 11/07/24 09:22 Neut % (Auto) 80.7 % 11/07/24 09:22 Lymph % (Auto) 8.6 % 11/07/24 09:22 [place] % (Auto) 9.7 % 11/07/24 09:22 Eos % (Auto) 0.4 % 11/07/24 09:22 Baso % (Auto) 0.2 % 11/07/24 09:22 Neut # (Auto) 13.44 10^3/uL (1.8-7.7) H 11/07/24 09:22 Lymph # (Auto) 1.4 10^3/uL (0.8-4.8) 11/07/24 09:22 [place] # (Auto) 1.6 10^3/uL (0.2-0.9) H 11/07/24 09:22 Eos # (Auto) 0.1 10^3/uL (0.0-0.8) 11/07/24 09:22 Baso # (Auto) 0.0 10^3/uL (0.0-0.1) 11/07/24 09:22 Nucleated RBC % (auto) 0 % 11/07/24 09:22 Nucleated RBCs # 0.0 /100WBC 11/07/24 09:22 PT 13.00 SECONDS (12.1-14.9) 11/07/24 09:22 INR 0.92 (0.8-1.2) 11/07/24 09:22 APTT 22.6 SECONDS (23.9-36.7) L 11/07/24 09:22 Sodium 128 mmol/L (136-145) L 11/07/24 09:22 Potassium 4.2 mmol/L (3.5-5.1) 11/07/24 09:22 Chloride 89 mmol/L (98-107) L 11/07/24 09:22 Carbon Dioxide 25 mmol/L (22-29) 11/07/24 09:22 Anion Gap 18.2 (5-19) 11/07/24 09:22 BUN 13 mg/dL (8-23) 11/07/24 09:22 Creatinine 0.6 mg/dL (0.5-0.9) 11/07/24 09:22 GFR Calculation 101.6 mL/min (90-130) 11/07/24 09:22 Glucose 136 mg/dL (65-115) H 11/07/24 09:22 Calculated Osmolality 268 mOsm/kg (285-295) L 11/07/24 09:22 Lactic Acid 1.0 mmol/L (0.5-2.2) 11/07/24 12:17 Calcium 9.1 mg/dL (8.5-10.5) 11/07/24 09:22 Total Bilirubin 0.2 mg/dL (0.15-1.2) 11/07/24 09:22 AST 12 U/L (0-32) 11/07/24 09:22 ALT 8 U/L (0-33) 11/07/24 09:22 Alkaline Phosphatase 95 U/L (35-105) 11/07/24 09:22 Ammonia 18 umol/L (11-51) 11/07/24 12:17 NT-Pro-B Natriuret Pep 98 pg/mL (0-125) 11/07/24 09:22 Total Protein 6.2 g/dL (6.6-8.7) L 11/07/24 09:22 Albumin 3.1 g/dL (3.5-5.2) L 11/07/24 09:22 Globulin 3.1 g/dL (1.3-4.6) 11/07/24 09:22 All radiology interpretation(s) finalized by discharge Discharge Plan Discharge Patient Disposition: Placed in Observation Clinical Impression: Pleural effusion Coding Level of Care Code ED Clerical Order Filler for Jarad Garcia
--- NOTE | 2024-11-07 11:38 | XRR_ITS ---
PROCEDURE INFORMATION: Exam: XR Chest Exam date and time: 11/07/2024 11:44 AM Age: 59 years old Clinical indication: Shortness of breath; Fluid retention TECHNIQUE: Imaging protocol: Radiologic exam of the chest. Views: 1 view. COMPARISON: CR XR chest 1V portable [id number] 11/03/2024 12:12 PM FINDINGS: Lungs: Right basilar atelectasis. No focal consolidation. Pleural spaces: Stable moderate right pleural effusion. Heart/Mediastinum: No cardiomegaly. Bones/joints: Unremarkable. Organs: Status post cholecystectomy. XR/XR chest 1V portable [id number] IMPRESSION: Stable moderate right pleural effusion.
--- NOTE | 2024-11-07 11:51 | CT_ITS ---
WS: [id number] CT CHEST, ABDOMEN AND PELVIS WITH CONTRAST HISTORY: Shortness of breath, abdominal swelling, concern for ascites TECHNIQUE: Contiguous 5 mm axial imaging performed through the chest, abdomen and pelvis with IV contrast, oral contrast has not been provided. Coronal and sagittal reformats chest. Coronal and sagittal reformats through the abdomen and pelvis. All CT scans at [facility] use at least one of these dose optimization techniques: automated exposure control; mA and/or kV adjustment per patient size (includes targeted exams where dose is matched to clinical indication); or iterative reconstruction. CONTRAST: Omnipaque 350; 100 mL IV. DLP: 591.68 mGy.cm COMPARISON: 11/02/2024, 10/09/[address]: Moderate RIGHT and small LEFT pleural effusions. RIGHT pleural effusion has increased in size as compared to a recent thoracentesis that was performed. Subsegmental atelectasis RIGHT lower lobe. Mild hazy attenuation probably from edema and motion artifact. Normal size aorta. Visualized pulmonary arteries are clear. Heart size is normal. No axillary, mediastinal or hilar pathologically enlarged lymph nodes. Abdomen CT: Normal size liver. Normal size spleen. Prior cholecystectomy. No adrenal mass. Normal pancreas. No renal obstruction. Moderate atherosclerosis aorta. Small caliber SMA and celiac axis are poorly visualized due to the contrast bolus. There is a small amount of ascites. Mild distention of the stomach with fluid. No small bowel obstruction. Increasing fluid within the distal small bowel but no obstructive pattern. Mild mucosal enhancement of the small bowel. There is increased density within the cecum which may be medicinal. This was also present on 10/09/2024. Increasing constipation and fecal retention throughout the colon. History of prior appendectomy. Pelvic CT: Uterus is present and midline. Fluid distending the endometrial canal. Urinary bladder is minimally distended. No destructive bone lesions. CT/CT chest abdpel w/*[id number] IMPRESSION: 1. Moderate RIGHT and small LEFT pleural effusions. RIGHT pleural effusion has increased in size since the recent thoracentesis. 2. RIGHT basilar atelectasis. 3. No renal obstruction. 4. Small amount of ascites. 5. Increasing constipation throughout the colon. There is a segment of proxima l sigmoid colon that is not well visualized. Consider colonoscopy for better ev aluation. 6. Nondilated small bowel but there is increasing fluid distally. There is mil d enhancement of the small bowel suggesting enteritis. Correlate for possible m ild viral enteritis. 7. Prior appendectomy. 8. No free air. 9. Mildly dilated endometrium. Consider transvaginal pelvic ultrasound evaluat ion on a nonurgent basis.
[2024-11-07 11:57] LABS: INR 0.92 (0.8-1.2); Partial Thromboplastin Time 22.6 SECONDS (23.9-36.7)
[2024-11-07 12:00] LABS: Lactic Sepsis W/Reflex 1.8 mmol/L (0.5-2.2)
[2024-11-07] MEDS: iohexol 350 mg/mL 500 mL Btl (per mL) IV (12:08)
[2024-11-07 12:10] LABS: Alanine Aminotransferase 8 U/L (0-33); Albumin Level 3.1 g/dL (3.5-5.2); Alkaline Phosphatase 95 U/L (35-105); Aspartate Amino Transferase 12 U/L (0-32); Blood Urea Nitrogen 13 mg/dL (8-23); Calcium 9.1 mg/dL (8.5-10.5); Carbon Dioxide 25 mmol/L (22-29); Chloride 89 mmol/L (98-107); Creatinine Clr Calc Pharmacy 81.7878; Globulin 3.1 g/dL (1.3-4.6); Glomerular Filtration Rate 101.6 mL/min (90-130); Glucose 136 mg/dL (65-115); NT Pro B Type Natriuretic Pept 98 pg/mL (0-125); Osmolality Calculated 268 mOsm/kg (285-295); Sodium 128 mmol/L (136-145); Total Bilirubin 0.2 mg/dL (0.15-1.2); Total Protein 6.2 g/dL (6.6-8.7)
[2024-11-07 12:18] LABS: Anion Gap 18.2 (5-19); Potassium 4.2 mmol/L (3.5-5.1)
[2024-11-07 12:58] LABS: Ammonia 18 umol/L (11-51)
[2024-11-07] MEDS: acetaminophen 500 mg Tablet 1000 MG PO (15:43)
--- NOTE | 2024-11-07 16:24 | PC.NURSE ---
Called Hospitalist, Dr. Santana, asked if pt was npo or if order for diet could be placed, verbally order diet, pt may eat and drink.
--- NOTE | 2024-11-07 17:06 | PM.HP ---
Providers/Chief Complaint Admitting Physician: Cat Bland MD Primary Care Provider: Jose Alberto Singleton MD Chief Complaint: fluid retention History of Present Illness Irish Gaviria is a 59 year old female with a past medical history of type 2 diabetes mellitus, hypertension, hyperlipidemia who was recently admitted to the hospital between November 02 to November 05, 2024 after presenting with shortness of breath. Patient had reported significant worsening of symptoms in 3 to 4 days prior to her last admission. She was noted to have leukocytosis, thrombocytosis and hyponatremia. CT of the chest was performed which was negative for PE which showed a right large pleural effusion with right middle and lower lobe atelectasis versus infiltrates and nonspecific mediastinal lymph nodes. She underwent thoracentesis on the right side with removal of 800 cc of fluid. This was deemed to be exudative per lights criteria. Patient symptoms were thought to be related to pneumonia. She was treated with IV ceftriaxone and azithromycin. Fluid Gram stain and culture remain negative. Echocardiogram was performed which showed normal left ventricular size systolic function and wall thickness without regional wall motion abnormalities. LVEF was estimated at 60% with grade 1 diastolic dysfunction. Pathology was negative for malignancy. She was discharged home with recommendations to continue levofloxacin for 2 weeks. She returned to the emergency room today with recurrent shortness of breath and abdominal swelling. CT of the chest abdomen and pelvis today showed a moderate right and small left pleural effusion of which the right effusion had increased in size since the recent thoracentesis. Small amount of ascites was noted. There was increasing constipation throughout the colon. A segment of proximal sigmoid colon was not well-visualized. Possible mild enteritis was suspected patient had had a colonoscopy as outpatient recently in February 2024 which was normal. Blood culture was negative White blood cell count today has increased to 16,000 with a predominant neutrophilia.Of note there has been an uptrend since October 09, 2024 when the count was at 15,000. Increased monocytosis at 1.6. Continued low sodium at 128 with low serum osmolality. QuantiFERON screen from 2021 was negative Review of Systems General: Reports: 10 or more systems reviewed and unremarkable except in HPI and below Const: Denies: fever(s), chills or body aches Eyes: Denies: change in vision, blurry vision or photophobia ENMT: Reports: hoarseness; Denies: throat pain, enlarged tonsils, odynophagia or nasal congestion Card: Denies: chest pain, palpitations, irregular heart rhythm, edema, swelling of feet/ankles, lightheadedness, pre-syncope, dyspnea on exertion or orthopnea Resp: Denies: dyspnea, productive cough, non-productive cough, wheezing, stridor, pain on inspiration, change in phlegm color, hemoptysis or chest congestion GI: Denies: abdominal pain, nausea, vomiting, hematemesis, coffee ground emesis, dysphagia, heartburn, diarrhea, constipation, GI cramping, change in stool character, hematochezia or melena : Denies: flank pain, difficulty voiding, dysuria, urinary frequency, urinary urgency, urinary hesitancy or hematuria Musc: Denies: neck pain, back pain, extremity pain, joint swelling, joint warmth or deformity Neuro: Denies: headache(s), numbness in extremities, weakness in extremities, sensory changes, difficulty walking, frequent falls, dizziness, vertigo, behavioral changes, Slurred speech present or seizure-like activity Psych: Denies: anxiety, depression, suicidal ideation or homicidal ideation Endo: Denies: polyuria, polydipsia, tired all the time, cold intolerance or hot flashes Meng/Lymph: Denies: easy bruising or easy bleeding Medications/Allergies Home Medications ?Medication ?Instructions ?Recorded ?Confirmed ?Last Taken ?Type carvedilol 12.5 mg tablet See Rx Instructions .Route 10/26/23 11/07/24 11/07/24 Rx .COMPLEX #90 tabs paroxetine HCl 20 mg tablet 20 mg PO DAILY hot flashes #90 tabs 10/26/23 11/07/24 11/07/24 Rx glimepiride 4 mg tablet 4 mg PO BID #180 tabs 12/29/23 11/07/24 11/07/24 Rx pioglitazone 15 mg tablet (Actos) 15 mg PO DAILY #90 tabs 03/28/24 11/07/24 11/07/24 Rx cyclobenzaprine 10 mg tablet See Rx Instructions .Route 08/29/24 11/07/24 Unknown Rx .COMPLEX #180 tabs celecoxib 100 mg capsule 100 mg PO BID PRN Pain 11/03/24 11/07/24 11/07/24 History lactulose 10 gram/15 mL oral 20 g PO BID 0411/07/24 11/02/24 History solution lisinopril 20 mg tablet 20 mg PO QAM 11/03/24 11/07/24 11/07/24 History omeprazole 40 mg capsule,delayed 40 mg PO DAILY 11/03/24 11/07/24 Unknown History release pravastatin 40 mg tablet 40 mg PO DAILY 11/03/24 11/07/24 11/07/24 History trazodone 150 mg tablet 75 - 150 mg PO QPM insomnia 11/03/24 11/07/24 11/06/24 History docusate sodium 100 mg capsule 100 mg PO BID #14 caps 11/05/24 11/07/24 11/07/24 Rx (Colace) famotidine 20 mg tablet (Pepcid) 20 mg PO BEDTIME 14 days #14 tabs 11/05/24 11/07/24 Unknown Rx levofloxacin 750 mg tablet 750 mg PO DAILY 14 days #14 tabs 11/05/24 11/07/24 11/07/24 Rx Allergies Allergy/AdvReac Type Severity Reaction Status Date / Time amitriptyline AdvReac Intermediate anxious Verified 11/07/24 10:38 atorvastatin (From Lipitor) AdvReac Intermediate cramps Verified 11/07/24 10:38 codeine AdvReac Intermediate Unknown Verified 11/07/24 10:38 gabapentin (From Neurontin) AdvReac Intermediate stomach Verified 11/07/24 10:38 pain lorazepam AdvReac Intermediate headaches Verified 11/07/24 10:38 simvastatin (From Zocor) AdvReac Intermediate leg cramps Verified 11/07/24 10:38 PFSH Acute PFSH: Medical History Hyponatremia Other thrombocytosis Hyperlipidemia Hypertension Diabetes mellitus type 2, controlled Surgical History History of neck surgery Family History Brother Stomach cancer Father Leukemia Social History Smoking and tobacco/nicotine status: never used tobacco/nicotine Alcohol intake: never Substance/Drug Use: never Vitals/I&O/Wt Last Vital Signs Temp 97.9 F 04/28/25 10:31 Pulse 99 11/07/24 16:30 Resp 20 H 11/07/24 16:30 BP 137/72 11/07/24 16:30 Pulse Ox 93 11/07/24 16:30 O2 Del Method Room Air 11/07/24 16:30 Weight last 48 hrs Weight 52.617 kg Physical Exam Narrative: General: No acute distress, AO x3 HEENT: PERRLA, pupils bilaterally equal and reactive, pallors not present Chest: Normal vesicular breath sounds, no added sounds, equal good air entry bilaterally CVS: S1-S2 regular, no murmurs, no tachycardia, no gallops, no rubs Abdomen: Soft, nontender, no organomegaly, bowel sounds present Neuro: No focal deficits, no facial deformity, AO x3, power 5/5 in all limbs Data 11/08/24 05:43 11/08/24 05:43 Micro: Microbiology 11/07/24 12:17 Blood Culture - Preliminary Blood SPECIMEN COLLECTED 11/07/24 12:19 Blood Culture - Preliminary Blood SPECIMEN COLLECTED A&P Assessment and plan (1) Pleural effusion: Patient with recent HPI as above Presenting back with recurrent pleural effusion on the right side. Status post recent thoracentesis with labs as noted above Overall lights criteria is consistent with an exudative effusion without an obvious etiology at this time. Gram stain and culture from last admission are negative Patient received ceftriaxone and azithromycin on her last admission and was discharged with levofloxacin. She returns today with reaccumulation of the effusion and a WBC count of 16,000. She is currently afebrile. Given that this is a recurrent effusion, will need to expand the differential at this time Possibilities include but are not limited to infection, inflammatory process versus underlying malignancy. 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 Her last QuantiFERON screen from 2021 was negative. Has not had one since then. Will repeat QuantiFERON screen and AFB stain and culture along with ADA on the pleural fluid. Peripheral fungal evaluation to include serum galactomannan, beta D glucan, histoplasma urine Ag and antibody levels, blastomyces serology. Check PARTH panel, serum IVONNE level and aldolase level, Ra factor and Anti CCP ab. Patient will likely eventually also need to be set up with pulmonology in the next 7-10 days for further evaluation. In the interim start Piperacillin/Tazobactam empirically (2) Nausea & vomiting: Patient has intractable nausea and vomiting over the last 2 weeks . Says she has been having dry heaves. On her last admission she was discharged with recommendation to take lactulose which she has been taking but has not yet had a bowel movement. CT of the abdomen and pelvis was performed due to concern for SBO/ileus. Study was negative for the same but showed constipation throughout the colon. Segment of proximal colon that was not well-visualized. Patient has had a previous colonoscopy in 2023 which did not show any obvious lesions. The small bowel was nondilated but there was noted to be some increasing fluid concerning for enteritis. Possibly this may represent a viral enteritis. Prior appendectomy noted. There was a mildly dilated endometrium for which transvaginal pelvic ultrasound was recommended. PDMP PDMP Reviewed: Not Reviewed Attestations Medical Necessity Statement*: Greater than 2 midnight stay is anticipated Coding Level of Care Code Acute Code for Chg Fwd Diagnoses Pleural effusion J90 Nausea & vomiting R11.2
--- NOTE | 2024-11-07 17:14 | USR_ITS ---
PROCEDURE INFORMATION: Exam: US Pelvis, Transvaginal, Non-Obstetric Exam date and time: 11/07/2024 5:51 PM Age: 59 years old Clinical indication: Screening exam; Ovarian mass suspected; Additional info: Assess for ovarian mass TECHNIQUE: Imaging protocol: Real-time transvaginal pelvic (non-obstetric) ultrasound with image documentation. Transvaginal imaging was used for better evaluation of the endometrium, adnexa, and/or cervix. COMPARISON: CT chest abdpel w/*[id number] 11/07/2024 12:03 PM FINDINGS: Limitations: Bowel gas and patient limitations. Uterus: Uterine trace length is 8.5 cm by 3.2 x 4.4 cm. Limited evaluation of the uterus with endometrial thickness of 13 mm and without significant other abnormality. Right ovary/adnexa: Evaluation of the right adnexal region shows no significant abnormality. No definite mass. Left ovary/adnexa: Evaluation of the left adnexal region shows no significant abnormality. No definite mass. Urinary bladder: Urinary bladder is limited. Intraperitoneal space: No significant free fluid is seen in the cul-de-sac. US/US transvaginal [id number] IMPRESSION: Limited exam. Endometrial thickness 13 mm. No other significant abnormality is seen.
[2024-11-07 18:08] LABS: Erythrocyte Sedimentation Rate 45 mm/hr (0-15)
[2024-11-07 18:58] LABS: C Reactive Protein 26.8 mg/L (0.0-4.9)
[2024-11-07] MEDS: carvedilol 6.25 mg Tablet PO (20:07)
[2024-11-07] MEDS: piperacillin-tazobactam 3.375 GM in sodium chloride 0.9% (plus) 50 ML IV (20:08)
[2024-11-07] MEDS: cyclobenzaprine 10 mg Tablet PO (20:08)
[2024-11-07] MEDS: docusate sodium 100 mg Capsule PO (20:08)
[2024-11-07] MEDS: trazodone 50 mg Tablet 75 MG PO (20:08)
[2024-11-07] MEDS: morphine 4 mg/mL SDV 1 mL 2 MG IVP (23:33)
[2024-11-08] VITALS (12 sets, daily range): BP systolic 109–126; BP diastolic 57–75; PULSE 61–95; RESP 15–18; TEMP 36.4–36.8; O2SAT 92–98
[2024-11-08] MEDS: piperacillin-tazobactam 3.375 GM in sodium chloride 0.9% (plus) 50 ML IV ×3 (02:26→18:01)
[2024-11-08 05:32] LABS: Adenovirus Not Detected (NOT DETECT); Chlamydia Pneumoniae Not Detected (NOT DETECT); Coronavirus 229E,HKU1,NL63,OC4 Not Detected (NOT DETECT); Human Metapneumovirus Not Detected (NOT DETECT); Human Rhinovirus/Enterovirus Not Detected (NOT DETECT); Influenza A Not Detected (NOT DETECT); Influenza A H1 Not Detected (NOT DETECT); Influenza A H1-2009 Not Detected (NOT DETECT); Influenza A H3 Not Detected (NOT DETECT); Influenza B Not Detected (NOT DETECT); Mycoplasma Pneumoniae Not Detected (NOT DETECT); Parainfluenza Virus Type 1 Not Detected (NOT DETECT); Parainfluenza Virus Type 2 Not Detected (NOT DETECT); Parainfluenza Virus Type 3 Not Detected (NOT DETECT); Parainfluenza Virus Type 4 Not Detected (NOT DETECT); Respiratory Syncytial Virus A Not Detected (NOT DETECT); Respiratory Syncytial Virus B Not Detected (NOT DETECT); SARS-COV-2 Not Detected (NOT DETECT)
[2024-11-08 06:01] LABS: Basophils # 0.1 10^3/uL (0.0-0.1); Basophils % 0.4 %; Eosinophils # 0.4 10^3/uL (0.0-0.8); Eosinophils % 2.3 %; Hematocrit 35.7 % (36-47); Lymphocytes # 1.4 10^3/uL (0.8-4.8); Lymphocytes % 9.5 %; Mean Corpuscular HGB Conc 32.2 g/dL (30-55); Mean Corpuscular Hemoglobin 29.3 pg (27-33); Mean Corpuscular Volume 90.8 fl (85-98); Mean Platelet Volume 8.3 fL (7.4-10.4); Monocytes # 1.5 10^3/uL (0.2-0.9); Monocytes % 9.8 %; Neutrophils # 11.64 10^3/uL (1.8-7.7); Neutrophils % 77.5 %; Nucleated Red Blood Cells % 0 %; Platelet Count 622 10^3/cmm (157-399); Red Blood Count 3.93 10^6/uL (3.85-5.65); Red Cell Distribution Width 14.3 % (12.1-15.1); White Blood Count 15.01 10^3/uL (3.29-11.43)
[2024-11-08 06:12] LABS: MRSA PCR OZH (swab) NOT DETECTED (Not Detecte)
[2024-11-08] MEDS: lisinopril 20 mg Tablet PO (06:19)
[2024-11-08 06:30] LABS: Alanine Aminotransferase 7 U/L (0-33); Albumin Level 2.9 g/dL (3.5-5.2); Alkaline Phosphatase 95 U/L (35-105); Aspartate Amino Transferase 9 U/L (0-32); Blood Urea Nitrogen 9 mg/dL (8-23); Calcium 8.8 mg/dL (8.5-10.5); Carbon Dioxide 25 mmol/L (22-29); Chloride 92 mmol/L (98-107); Creatinine Clr Calc Pharmacy 123.0104; Glomerular Filtration Rate 162.3 mL/min (90-130); Glucose 137 mg/dL (65-115); Osmolality Calculated 267 mOsm/kg (285-295); Sodium 128 mmol/L (136-145); Total Bilirubin 0.2 mg/dL (0.15-1.2); Total Protein 5.9 g/dL (6.6-8.7)
[2024-11-08] MEDS: morphine 4 mg/mL SDV 1 mL 2 MG IVP ×4 (06:30→23:18)
[2024-11-08] MEDS: pioglitazone 30 mg Tablet 15 MG PO (09:23)
[2024-11-08] MEDS: docusate sodium 100 mg Capsule PO ×2 (09:23→17:59)
[2024-11-08] MEDS: pantoprazole DR 40 mg Tablet PO (09:23)
[2024-11-08] MEDS: sodium chloride 1 gm Tablet PO ×2 (09:23→17:59)
[2024-11-08] MEDS: carvedilol 6.25 mg Tablet PO ×2 (09:23→17:59)
--- NOTE | 2024-11-08 10:01 | PC.CHAP ---
Pastoral Care Encounter/Spiritual Assessment Type of Contact [] Declined leasing agent visit [] Patient/Family/Request visit [] Outpatient visit [] Follow-up visit [] Physician referral [] Code/Alert [x] Routine visit [] Staff referral [] Actively dying [] Patient sleeping [] Family support [] [] Out of room [] Palliative care [] [] Receiving care in room [] Pre-surgical visit [] Trauma [] Long length of stay [] ICU visit [] Other: Relational/Emotional Strength [x] Patient feels connected with others/family/visitors/staff [] Distress [] Loneliness/isolation [] Abandonment Spirituality of Patient [x] Person of Nancy [] Attends Gnosticist of their Nancy [x] Believes in Prayer [] Reads Bible or Latter Day materials [] There are Spiritual issues to be addressed Property Appraiser Interventions [x] Prayer [x] Active listening [] Non-anxious presence [x] Spiritual/emotional support [] Crisis/trauma care [] Spiritual counseling [] Bereavement support [] Provided bereavement packet [] Provided Bible/devotional materials [] Provided toy/stuffed animal, coloring book to patient or family member [] Provided Communion [] Anointing/[place] [] Salvation [x] Completed spiritual assessment [] Other: Impact on Illness or Injury [] Angry [] Fearful [] Anxious [] Often cries [] Exhaustion [] Unable to work [] Unable to attend quaker [] Unable to walk/stand [] Unable to read [] Unable to drive [] Unable to eat/drink [] Unable to sleep [] Unable to be with family [] Patient intubated [] Other: Summary Time spent with patient 5 min
[2024-11-08] MEDS: cyclobenzaprine 10 mg Tablet PO ×2 (11:07→17:59)
[2024-11-08] MEDS: ondansetron 2 mg/ML SDV 2 mL 4 MG IVP (12:16)
[2024-11-08] MEDS: glycerin adult supp 1 EACH PR (13:09)
--- NOTE | 2024-11-08 15:46 | P.PN_ITS ---
Subjective 2 Subjective: Patient has had nausea and 1 episode vomiting today. She is passing flatus but is yet to have a bowel movement. Plan for thoracentesis later this evening. Medications: Reviewed: Yes Vitals/I&O/Wt Last Vital Signs Temp 97.6 F 11/08/24 11:20 Pulse 83 11/08/24 11:20 Resp 16 11/08/24 11:20 BP 112/57 11/08/24 11:20 Pulse Ox 92 11/08/24 11:20 O2 Del Method Room Air 11/08/24 11:20 11/08/24 11/08/24 11/08/24 06:59 14:59 22:59 Intake Total 50 / 50 100 / 100 Balance 50 / 50 100 / 100 Weight last 48 hrs Weight 52.758 kg Weight 52.73 kg Weight 52.617 kg Physical Exam 2 Narrative: General: No acute distress, AO x3 HEENT: PERRLA, pupils bilaterally equal and reactive, pallors not present Chest: Normal vesicular breath sounds, no added sounds, equal good air entry bilaterally CVS: S1-S2 regular, no murmurs, no tachycardia, no gallops, no rubs Abdomen: Soft, nontender, no organomegaly, bowel sounds present Neuro: No focal deficits, no facial deformity, AO x3, power 5/5 in all limbs Data 11/08/24 05:43 11/08/24 05:43 Micro: Microbiology 11/07/24 12:17 Blood Culture - Preliminary Blood NEGATIVE TO DATE 11/07/24 12:19 Blood Culture - Preliminary Blood NEGATIVE TO DATE 11/08/24 05:43 Cryptococcal Antigen (Serum) - Final Blood A&P Assessment and plan (1) Pleural effusion: Patient with recent HPI as above Presenting back with recurrent pleural effusion on the right side. Status post recent thoracentesis with labs as noted above Overall lights criteria is consistent with an exudative effusion without an obvious etiology at this time. Gram stain and culture from last admission are negative Patient received ceftriaxone and azithromycin on her last admission and was discharged with levofloxacin. She returns today with reaccumulation of the effusion and a WBC count of 16,000. She is currently afebrile. Given that this is a recurrent effusion, will need to expand the differential at this time Possibilities include but are not limited to infection, inflammatory process versus underlying malignancy. 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 Her last QuantiFERON screen from 2021 was negative. Has not had one since then. Will repeat QuantiFERON screen and AFB stain and culture along with ADA on the pleural fluid. Peripheral fungal evaluation to include serum galactomannan, beta D glucan, histoplasma urine Ag and antibody levels, blastomyces serology. Check PARTH panel, serum IVONNE level and aldolase level, Ra factor and Anti CCP ab. Patient will likely eventually also need to be set up with pulmonology in the next 7-10 days for further evaluation. In the interim start Piperacillin/Tazobactam empirically (2) Nausea & vomiting: Patient has intractable nausea and vomiting over the last 2 weeks . Says she has been having dry heaves. On her last admission she was discharged with recommendation to take lactulose which she has been taking but has not yet had a bowel movement. CT of the abdomen and pelvis was performed due to concern for SBO/ileus. Study was negative for the same but showed constipation throughout the colon. Segment of proximal colon that was not well-visualized. Patient has had a previous colonoscopy in 2023 which did not show any obvious lesions. The small bowel was nondilated but there was noted to be some increasing fluid concerning for enteritis. Possibly this may represent a viral enteritis. Prior appendectomy noted. There was a mildly dilated endometrium for which transvaginal pelvic ultrasound was recommended. (3) Chronic hyponatremia: Plan November 08, 2024: Awaiting thoracentesis this afternoon. Additional testing as noted above. Peripheral evaluation remains pending. Continue piperacillin/tazobactam. She had 1 episode of vomiting this morning. Was unable to tolerate her breakfast. Currently symptoms relieved with Zofran. Changed to clear liquid diet. Check lipase levels. Glycerin suppository today and if fails to improve her constipation we will try enema. Holding off on DVT prophylaxis until thoracentesis can be completed. Hold pioglitazone in case contributing to edema. Also noted to have hyponatremia with Na at 128 today, previously ranging 125-133. ? SIADH. start oral salt tabs BID and monitor. Transvaginal ultrasound ordered for visualization of ovaries, no definite mass is encountered within confines of bowel gas and patient limitations. Endometrial thickness noted to be 13 mm. PDMP PDMP Reviewed: Not Reviewed Attestations 2 Medical Necessity Statement*: thoracentesis planned today. Coding Level of Care Code Acute Code for Chg Fwd Diagnoses Pleural effusion J90 Nausea & vomiting R11.2 Chronic hyponatremia E87.1
[2024-11-08] MEDS: trazodone 50 mg Tablet 75 MG PO (17:59)
[2024-11-09] MEDS: piperacillin-tazobactam 3.375 GM in sodium chloride 0.9% (plus) 50 ML IV ×3 (01:36→17:13)
[2024-11-09 05:38] VITALS: BP 124/68; PULSE 70; RESP 18; TEMP 36.7; O2SAT 97
[2024-11-09 05:50] LABS: Basophils % 0.4 %; Eosinophils # 0.3 10^3/uL (0.0-0.8); Eosinophils % 2.8 %; Hematocrit 34.5 % (36-47); Lymphocytes # 1.2 10^3/uL (0.8-4.8); Lymphocytes % 11.9 %; Mean Corpuscular HGB Conc 31.3 g/dL (30-55); Mean Corpuscular Hemoglobin 29.1 pg (27-33); Mean Platelet Volume 8.4 fL (7.4-10.4); Monocytes # 1.1 10^3/uL (0.2-0.9); Monocytes % 10.2 %; Neutrophils % 74.2 %; Nucleated Red Blood Cells % 0 %; Platelet Count 524 10^3/cmm (157-399); Red Blood Count 3.71 10^6/uL (3.85-5.65); Red Cell Distribution Width 14.6 % (12.1-15.1); White Blood Count 10.38 10^3/uL (3.29-11.43)
[2024-11-09] MEDS: lisinopril 20 mg Tablet PO (06:08)
[2024-11-09 06:13] LABS: Alanine Aminotransferase 7 U/L (0-33); Albumin Level 2.6 g/dL (3.5-5.2); Alkaline Phosphatase 85 U/L (35-105); Aspartate Amino Transferase 11 U/L (0-32); Blood Urea Nitrogen 9 mg/dL (8-23); Calcium 8.4 mg/dL (8.5-10.5); Carbon Dioxide 25 mmol/L (22-29); Chloride 95 mmol/L (98-107); Creatinine Clr Calc Pharmacy 122.9451; Globulin 2.8 g/dL (1.3-4.6); Glomerular Filtration Rate 162.3 mL/min (90-130); Glucose 126 mg/dL (65-115); Lipase 24 U/L (13-60); Osmolality Calculated 270 mOsm/kg (285-295); Sodium 130 mmol/L (136-145); Total Bilirubin 0.2 mg/dL (0.15-1.2); Total Protein 5.4 g/dL (6.6-8.7)
[2024-11-09 07:59] VITALS: BP 115/65; PULSE 92; RESP 16; TEMP 36.8; O2SAT 94
[2024-11-09 08:50] LABS: INR 0.92 (0.8-1.2)
[2024-11-09] MEDS: polyethylene glycol 3350 Pkt 17 gm PO (09:01)
[2024-11-09] MEDS: PARoxetine 20 mg Tablet PO (09:01)
[2024-11-09] MEDS: sodium chloride 1 gm Tablet PO ×2 (09:01→17:13)
[2024-11-09] MEDS: pantoprazole DR 40 mg Tablet PO (09:01)
[2024-11-09] MEDS: carvedilol 6.25 mg Tablet PO ×2 (09:01→17:13)
[2024-11-09] MEDS: docusate sodium 100 mg Capsule PO ×2 (09:01→17:13)
[2024-11-09] MEDS: HYDROcodone-acetaminophen 5-325 mg Tablet 1 TAB PO ×2 (09:42→20:10)
--- NOTE | 2024-11-09 10:54 | XR_ITS ---
WS: [id number] CHEST XRAY TECHNIQUE: Portable chest. CLINICAL INFORMATION: post thora COMPARISON: 11/07/2024 FINDINGS: Heart: Normal cardiac silhouette. Prominent LEFT ventricle. Lungs: Chronic emphysematous changes. Subsegmental atelectasis in the RIGHT middle lobe and LEFT mid and lower lungs. Only trace residual RIGHT pleural fluid or thickening. No pneumothorax. Bones: Osteopenia. Postoperative changes lower cervical spine. XR/XR chest 1V portable [id number] IMPRESSION: Improved RIGHT pleural effusion. No pneumothorax.
[2024-11-09] MEDS: ondansetron 2 mg/ML SDV 2 mL 4 MG IVP (11:20)
[2024-11-09 11:29] LABS: Body Fluid Specific Gravity 1.024
[2024-11-09 11:42] LABS: Cyto Order Verification Order Verified
[2024-11-09 11:52] VITALS: BP 117/71; PULSE 84; RESP 16; TEMP 36.8; O2SAT 95
[2024-11-09 11:53] LABS: Albumin Body Fluid 2.1 g/dL; Cholesterol Body Fluid 77 mg/dL (0-200); LDH Body Fluid 267 U/L; Triglycerides Body Fluid 38 mg/dL (0-150); Uric Acid Body Fluid 3 mg/dL
[2024-11-09 11:55] LABS: pH Body Fluid 7.5
[2024-11-09] MEDS: magnesium hydroxide 30 mL UDC 15 ML PO (12:39)
[2024-11-09 15:48] VITALS: BP 121/62; PULSE 85; RESP 17; TEMP 36.6; O2SAT 95
--- NOTE | 2024-11-09 16:20 | P.PN_ITS ---
Subjective 2 Subjective: Patient underwent thoracentesis this morning with removal of 600 cc of pleural fluid. Patient is still nauseous. Continues to pass flatus but is yet to have a bowel movement. Ordered for milk of magnesia today. Medications: Reviewed: Yes Vitals/I&O/Wt Last Vital Signs Temp 98 F 11/09/24 15:48 Pulse 85 11/09/24 15:48 Resp 17 11/09/24 15:48 BP 121/62 11/09/24 15:48 Pulse Ox 95 11/09/24 15:48 O2 Del Method Room Air 11/09/24 15:48 11/09/24 11/09/24 11/09/24 06:59 14:59 22:59 Intake Total 340 / 1160 910 / 910 Balance 340 / 1160 910 / 910 Weight last 48 hrs Weight 52.73 kg Weight 52.758 kg Weight 52.73 kg Physical Exam 2 Narrative: General: No acute distress, AO x3 HEENT: PERRLA, pupils bilaterally equal and reactive, pallors not present Chest: Normal vesicular breath sounds, no added sounds, equal good air entry bilaterally CVS: S1-S2 regular, no murmurs, no tachycardia, no gallops, no rubs Abdomen: Soft, nontender, no organomegaly, bowel sounds present Neuro: No focal deficits, no facial deformity, AO x3, power 5/5 in all limbs Data 11/09/24 04:47 11/09/24 04:47 Micro: Microbiology 11/09/24 10:45 Gram Stain - Final Pleural Fluid 11/07/24 12:17 Blood Culture - Preliminary Blood NEGATIVE TO DATE 11/07/24 12:19 Blood Culture - Preliminary Blood NEGATIVE TO DATE 11/08/24 05:43 Cryptococcal Antigen (Serum) - Final Blood A&P Assessment and plan (1) Pleural effusion: Patient with recent HPI as above Presenting back with recurrent pleural effusion on the right side. Status post recent thoracentesis with labs as noted above Overall lights criteria is consistent with an exudative effusion without an obvious etiology at this time. Gram stain and culture from last admission are negative Patient received ceftriaxone and azithromycin on her last admission and was discharged with levofloxacin. She returns today with reaccumulation of the effusion and a WBC count of 16,000. She is currently afebrile. Given that this is a recurrent effusion, will need to expand the differential at this time Possibilities include but are not limited to infection, inflammatory process versus underlying malignancy. 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 Her last QuantiFERON screen from 2021 was negative. Has not had one since then. Will repeat QuantiFERON screen and AFB stain and culture along with ADA on the pleural fluid. Peripheral fungal evaluation to include serum galactomannan, beta D glucan, histoplasma urine Ag and antibody levels, blastomyces serology. Check PARTH panel, serum IVONNE level and aldolase level, Ra factor and Anti CCP ab. Patient will likely eventually also need to be set up with pulmonology in the next 7-10 days for further evaluation. In the interim start Piperacillin/Tazobactam empirically (2) Nausea & vomiting: Patient has intractable nausea and vomiting over the last 2 weeks . Says she has been having dry heaves. On her last admission she was discharged with recommendation to take lactulose which she has been taking but has not yet had a bowel movement. CT of the abdomen and pelvis was performed due to concern for SBO/ileus. Study was negative for the same but showed constipation throughout the colon. Segment of proximal colon that was not well-visualized. Patient has had a previous colonoscopy in 2023 which did not show any obvious lesions. The small bowel was nondilated but there was noted to be some increasing fluid concerning for enteritis. Possibly this may represent a viral enteritis. Prior appendectomy noted. There was a mildly dilated endometrium for which transvaginal pelvic ultrasound was recommended. (3) Chronic hyponatremia: Plan November 08, 2024: Awaiting thoracentesis this afternoon. Additional testing as noted above. Peripheral evaluation remains pending. Continue piperacillin/tazobactam. She had 1 episode of vomiting this morning. Was unable to tolerate her breakfast. Currently symptoms relieved with Zofran. Changed to clear liquid diet. Check lipase levels. Glycerin suppository today and if fails to improve her constipation we will try enema. Holding off on DVT prophylaxis until thoracentesis can be completed. Hold pioglitazone in case contributing to edema. Also noted to have hyponatremia with Na at 128 today, previously ranging 125-133. ? SIADH. start oral salt tabs BID and monitor. Transvaginal ultrasound ordered for visualization of ovaries, no definite mass is encountered within confines of bowel gas and patient limitations. Endometrial thickness noted to be 13 mm. November 09, 2024 Patient is status post thoracentesis today with removal of 600 cc of yellow- colored fluid. LDH 267 pH 7.5. serum LDH 188. TP serum 5.4, TP fluid at 3.4. At least one of Light's criteria is met for exudative effusion based on these numbers. Leukocytosis is improving today at 10,000. Gram stain with no organisms noted, rare white blood cells are seen. Pending AFB and fungal smear. Cryptococcal serum antigen was negative. Blood cultures remain negative to date. Pleural fluid ADA is pending. Peripheral workup pending with PARTH panel. RA factor returned at 10.0 within normal range. Pending CCP IgG. Negative respiratory viral panel. Pending Histoplasma urine antigen, histoplasma serology, pending Blastomyces serology, pending Coccidioides antibody,pending quantiferon screen. Pending Fungitell and Aspergillus galactomannan antigen. Pending IVONNE and aldolase levels. Per review of potential side effect profile of pioglitazone, the medication may be related to fluid retention. Will discontinue pioglitazone going forward in case contributing. In reviewing patient's past history, her last A1c was at 7.3, downtrending from 9.1 and 8.5 previously. Patient reports that she used to be on metformin in the past but this needed to be discontinued due to development of diarrhea. Thereafter she was changed to glimepiride however was having hypoglycemic episodes therefore this was discontinued as well. Review of chart shows that she was changed to pioglitazone in June 2025. She was unable to afford Jardiance. Patient is yet to have a bowel movement. She is nauseous. Passing flatus. Will repeat x-ray of the abdomen today to evaluate reassess for any ileus. Milk of magnesia trial today, may need enema next. colonoscopy results requested again for review from Michael Bedoya. If continues to have persistent nausea and spite of having had a bowel movement, consideration for gastric emptying study for gastroparesis. PDMP PDMP Reviewed: Not Reviewed Attestations 2 Medical Necessity Statement*: s/p thoracentesis earlier today Coding Level of Care Code Acute Code for Chg Fwd High MDM includes number and complexity of problems actively addressed during encounter, amount and/or complexity of data reviewed/ordered and described risk of complication, morbidity or mortality of management as documented Diagnoses Pleural effusion J90 Nausea & vomiting R11.2 Chronic hyponatremia E87.1
[2024-11-09 16:31] LABS: Total Protein Pleural Fluid 3.4 g/dL
--- NOTE | 2024-11-09 16:32 | XRR_ITS ---
PROCEDURE INFORMATION: Exam: XR Abdomen Exam date and time: 11/09/2024 5:06 PM Age: 59 years old Clinical indication: Nausea and vomiting; Prior surgery; Surgery date: 6+ months; Surgery type: Gb appy; Additional info: Evaluate for ileus TECHNIQUE: Imaging protocol: Radiologic exam of the abdomen. Views: Frontal supine view of the abdomen. 1 View. COMPARISON: CT chest abdpel w/*[id number] 11/07/2024 12:03 PM FINDINGS: Gastrointestinal tract: Normal. No bowel dilation. Intraperitoneal space: Surgical clips in the right upper quadrant. Bones/joints: Unremarkable. XR/XR abdomen 1V* [id number] IMPRESSION: No acute findings.
[2024-11-09 16:41] LABS: Aldolase 3.6 U/L (< OR = 8.1); COMPLEMENT, TOTAL (CH50) >60 U/mL (31-60)
--- NOTE | 2024-11-09 17:14 | US_ITS ---
WS: [id number] ULTRASOUND-GUIDED THORACENTESIS CLINICAL INFORMATION: pleural effusion PROCEDURE: Informed consent: The risks, benefits, and alternatives of the procedure were discussed with the patient. Verbal and written consent was obtained. Timeout: A timeout was performed to confirm the correct patient, procedure, and site. Site: RIGHT chest Preparation: A suitable skin site was identified. The patient was prepped and draped in usual sterile fashion. Lidocaine 1% was used for local anesthesia. Catheter: 4 [place] One-Step catheter. Fluid Volume: 500 ml Color: Yellow Discarded safely. Sent to the laboratory for analysis. Complications: No pneumothorax in the postthoracentesis radiograph US/ thoracentesis [id number] IMPRESSION: Uncomplicated ultrasound-guided RIGHT thoracentesis.
[2024-11-09 17:56] LABS: Lactate Dehydrogenase 242 U/L (135-214)
[2024-11-09 19:32] VITALS: BP 125/74; PULSE 77; RESP 16; TEMP 36.9; O2SAT 95
[2024-11-09] MEDS: trazodone 50 mg Tablet 75 MG PO (20:09)
[2024-11-09] MEDS: cyclobenzaprine 10 mg Tablet PO (20:12)
[2024-11-10] MEDS: piperacillin-tazobactam 3.375 GM in sodium chloride 0.9% (plus) 50 ML IV ×2 (02:30→10:51)
[2024-11-10 03:53] VITALS: BP 118/77; PULSE 86; RESP 15; TEMP 36.6; O2SAT 93
[2024-11-10] MEDS: HYDROcodone-acetaminophen 5-325 mg Tablet 1 TAB PO (04:04)
[2024-11-10 05:05] LABS: Basophils % 0.3 %; Eosinophils # 0.2 10^3/uL (0.0-0.8); Eosinophils % 1.5 %; Lymphocytes # 1.3 10^3/uL (0.8-4.8); Lymphocytes % 10.4 %; Mean Corpuscular HGB Conc 32.4 g/dL (30-55); Mean Corpuscular Hemoglobin 29.5 pg (27-33); Mean Corpuscular Volume 91.2 fl (85-98); Mean Platelet Volume 8.5 fL (7.4-10.4); Monocytes # 1.1 10^3/uL (0.2-0.9); Monocytes % 9.5 %; Neutrophils # 9.32 10^3/uL (1.8-7.7); Neutrophils % 77.9 %; Nucleated Red Blood Cells % 0 %; Platelet Count 568 10^3/cmm (157-399); Red Blood Count 3.73 10^6/uL (3.85-5.65); Red Cell Distribution Width 14.4 % (12.1-15.1); White Blood Count 11.97 10^3/uL (3.29-11.43)
[2024-11-10 05:29] LABS: COMPLEMENT COMPONENT C3C 178 mg/dL (83-193); COMPLEMENT COMPONENT C4C 24 mg/dL (15-57)
[2024-11-10 05:31] LABS: Alanine Aminotransferase 8 U/L (0-33); Albumin Level 2.7 g/dL (3.5-5.2); Alkaline Phosphatase 86 U/L (35-105); Anion Gap 12.2 (5-19); Aspartate Amino Transferase 9 U/L (0-32); Blood Urea Nitrogen 11 mg/dL (8-23); Calcium 8.1 mg/dL (8.5-10.5); Carbon Dioxide 28 mmol/L (22-29); Chloride 96 mmol/L (98-107); Creatinine Clr Calc Pharmacy 89.0073; Estmated Average Glucose 148; Globulin 2.8 g/dL (1.3-4.6); Glomerular Filtration Rate 125.4 mL/min (90-130); Glucose 120 mg/dL (65-115); Hemoglobin A1C 6.8 % (4.0-6.0); Osmolality Calculated 275 mOsm/kg (285-295); Potassium 4.2 mmol/L (3.5-5.1); Sodium 132 mmol/L (136-145); Total Bilirubin 0.2 mg/dL (0.15-1.2); Total Protein 5.5 g/dL (6.6-8.7)
[2024-11-10] MEDS: docusate sodium 100 mg Capsule PO (08:07)
[2024-11-10] MEDS: pantoprazole DR 40 mg Tablet PO (08:07)
[2024-11-10] MEDS: sodium chloride 1 gm Tablet PO (08:07)
[2024-11-10] MEDS: polyethylene glycol 3350 Pkt 17 gm PO (08:07)
[2024-11-10 08:34] VITALS: BP 98/61; PULSE 76; RESP 17; TEMP 36.6; O2SAT 98
[2024-11-10] MEDS: acetaminophen 325 mg Tablet 650 MG PO (10:50)
[2024-11-10] MEDS: cyclobenzaprine 10 mg Tablet PO (10:50)
[2024-11-10 12:01] VITALS: BP 112/64; PULSE 79; RESP 16; TEMP 36.6; O2SAT 92
[2024-11-10 12:21] VITALS: BP 112/64; PULSE 79; RESP 16; TEMP 36.6; O2SAT 92
[2024-11-10 13:24] LABS: Angiotensin Converting Enzyme 11 U/L (9-67)
--- NOTE | 2024-11-10 14:55 | PM.DCS ---
Discharge Providers Date of Admission: 11/07/24 14:29 Date of Discharge: November 10, 2024 Attending Provider at Admission: Cat Bland MD Attending Provider at Discharge: Cat Bland MD Primary Care Provider: Jose Alberto Singleton MD Diagnoses at Discharge Discharge Diagnosis (1) Pleural effusion: Status: Acute (2) Nausea & vomiting: Status: Acute (3) Chronic hyponatremia: Status: Acute Reason for Visit Reason for Visit: fluid retention Brief History: Irish Gaviria is a 59 year old female with a past medical history of type 2 diabetes mellitus, hypertension, hyperlipidemia who was recently admitted to the hospital between November 02 to November 05, 2024 after presenting with shortness of breath. Patient had reported significant worsening of symptoms in 3 to 4 days prior to her last admission. She was noted to have leukocytosis, thrombocytosis and hyponatremia. CT of the chest was performed which was negative for PE which showed a right large pleural effusion with right middle and lower lobe atelectasis versus infiltrates and nonspecific mediastinal lymph nodes. She underwent thoracentesis on the right side with removal of 800 cc of fluid. This was deemed to be exudative per lights criteria. Patient symptoms were thought to be related to pneumonia. She was treated with IV ceftriaxone and azithromycin. Fluid Gram stain and culture remain negative. Echocardiogram was performed which showed normal left ventricular size systolic function and wall thickness without regional wall motion abnormalities. LVEF was estimated at 60% with grade 1 diastolic dysfunction. Pathology was negative for malignancy. She was discharged home with recommendations to continue levofloxacin for 2 weeks. She returned to the emergency room on 11/07 with recurrent shortness of breath and abdominal swelling. CT of the chest abdomen and pelvis showed a moderate right and small left pleural effusion of which the right effusion had increased in size since the recent thoracentesis. Small amount of ascites was noted. There was increasing constipation throughout the colon. A segment of proximal sigmoid colon was not well-visualized. Possible mild enteritis was suspected patient had had a colonoscopy as outpatient recently in February 2024 which was normal. Blood culture was negative White blood cell count was at 16,000 with a predominant neutrophilia.Continued low sodium at 128 with low serum osmolality. Hospital Course Hospital Course Patient was admitted to the hospital due to recurrent right pleural effusion. She underwent thoracentesis on November 09, 2024. With removal of 600 cc of pleural fluid. Again exudative per lights criteria.Gram stain with no organisms noted, rare white blood cells are seen. Pending AFB and fungal smear. Cryptococcal serum antigen was negative. Blood cultures remain negative to date. Pleural fluid ADA is pending. Peripheral workup pending with PARTH panel. RA factor returned at 10.0 within normal range. Pending CCP IgG. Negative respiratory viral panel. Pending Histoplasma urine antigen, histoplasma serology, pending Blastomyces serology, pending Coccidioides antibody,pending quantiferon screen. Pending Fungitell and Aspergillus galactomannan antigen. Pending IVONNE and aldolase levels. She received an empiric course of piperacillin/tazobactam during this admission course and was discharged with Augmentin and levofloxacin for 5 days. Her WBC count did trend down from 16,000-10,000, possibly may have been missing pseudomonal versus anaerobic coverage on earlier regimens. However with a negative pleural fluid culture not possible to say this with certainty. Per review of potential side effect profile of pioglitazone, the medication may be related to fluid retention. We discontinud pioglitazone going forward in case contributing. Patient reported that she used to be on metformin in the past but this needed to be discontinued due to development of diarrhea. Thereafter she was changed to glimepiride however was having hypoglycemic episodes therefore this was discontinued as well. Review of chart shows that she was changed to pioglitazone in June 2025. She was unable to afford Jardiance. We have transitioned her to Farxiga 5mg po daily today. recommended to f/up with PCP to ensure continued glycemic control. Her hospital course was also complicated by marked constipation. She had persistent nausea and episodes of emesis with poor p.o. intake. She needed to be on a clear liquid diet for the first 2 days of her admission. Patient received milk of magnesia in addition to daily MiraLAX and eventually had a bowel movement on the night of November 09 following which her abdominal distention was relieved. CT of the abdomen did not show any ileus or obstruction. Due to significant nausea and vomiting, she did undergo a gastric emptying study which confirmed suspicion for gastroparesis. Study was notable for significantly delayed gastric emptying. She was started on treatment with metoclopramide 5 mg p.o. twice daily initially. Recommended to follow-up with primary care physician to see if metoclopramide needs to be titrated up any further based on symptoms. She has also been given a referral to see pulmonology at [facility] due to recurrent pleural effusion and further diagnostics. Physical Exam Narrative: General: No acute distress, AO x3 HEENT: PERRLA, pupils bilaterally equal and reactive, pallors not present Chest: Normal vesicular breath sounds, no added sounds, equal good air entry bilaterally CVS: S1-S2 regular, no murmurs, no tachycardia, no gallops, no rubs Abdomen: Soft, nontender, no organomegaly, bowel sounds present Neuro: No focal deficits, no facial deformity, AO x3, power 5/5 in all limbs Discharge Data Studies Completed and Pending Completed Studies During Hospitalization Category Date Time Status CT chest abdomen pelvis [CT chest abdpel w/*[id number] Cat Scan 11/07/24 11:51 Completed ] Stat XR abdomen 1V* [id number] Routine Exams 11/09/24 16:32 Completed XR chest 1V portable [id number] Stat Exams 11/07/24 11:38 Completed XR chest 1V portable [id number] Stat Exams 11/09/24 10:54 [place] [id number] Routine Nuc Med 11/10/24 16:43 Completed US thoracentesis [id number] Routine Ultrasound 11/09/24 17:14 Completed US transvaginal [id number] Routine Ultrasound 11/07/24 17:14 Completed Pending at discharge Category Date Time Status Amylase, Pleural Fluid Routine Lab 11/07/24 10:45 Received PARTH Profile Rheumatology Routine Lab 11/07/24 17:41 Results Anaerobic Culture Routine Lab 11/07/24 10:45 Results Blastomyces AB Panel CF and ID Routine Lab 11/07/24 17:14 Received Blood Culture Stat Lab 11/07/24 12:17 Results Body Fluid Culture & GS Routine Lab 11/07/24 10:45 Results CCP [Cyclic Citrullinated Peptide] Routine Lab 11/07/24 17:41 Received Coccidioides AB CF Serum Routine Lab 11/07/24 17:14 Received Fungal Culture not HR/SK/BL Routine Lab 11/07/24 10:45 Received Fungitell Glucan Assay (Blood) Routine Lab 11/07/24 17:14 Received GALACTOMANAN [Aspergillus AG,EIA,Serum] Routine Lab 11/07/24 17:14 Received Histoplasma Antibody Immunodif Routine Lab 11/07/24 17:14 Received Histoplasma Galactomannan Ag Routine Lab 11/07/24 17:14 Ordered Histoplasma Quantitative AG Routine Lab 11/07/24 17:14 Ordered Mycobacteria, Culture w/Fluor Routine Lab 11/07/24 10:45 Received Pleural Fld Adenosine Deami Routine Lab 11/08/24 10:45 Received Yrvfgderqca-TC-Pdxo Plus Routine Lab 11/07/24 17:14 Received Urine Sodium [Urine Random Sodium] Routine Lab 11/07/24 21:17 Ordered Cytology [PTH] Routine Pth 11/07/24 17:17 Received Radiology Impressions Chest/Abdomen/Pelvis CT 11/07/24 11:51 IMPRESSION: 1. Moderate RIGHT and small LEFT pleural effusions. RIGHT pleural effusion has increased in size since the recent thoracentesis. 2. RIGHT basilar atelectasis. 3. No renal obstruction. 4. Small amount of ascites. 5. Increasing constipation throughout the colon. There is a segment of proximal sigmoid colon that is not well visualized. Consider colonoscopy for better evaluation. 6. Nondilated small bowel but there is increasing fluid distally. There is mild enhancement of the small bowel suggesting enteritis. Correlate for possible mild viral enteritis. 7. Prior appendectomy. 8. No free air. 9. Mildly dilated endometrium. Consider transvaginal pelvic ultrasound evaluation on a nonurgent basis. Transvaginal US 11/07/24 17:14 IMPRESSION: Limited exam. Endometrial thickness 13 mm. No other significant abnormality is seen. Chest X-Ray 11/09/24 10:54 IMPRESSION: Improved RIGHT pleural effusion. No pneumothorax. Abdomen X-Ray 11/09/24 16:32 IMPRESSION: No acute findings. Thoracentesis Ultrasound 11/09/24 17:14 IMPRESSION: Uncomplicated ultrasound-guided RIGHT thoracentesis. Gastric Emptying Nuclear Medicine 11/10/24 16:43 IMPRESSION: 1. Significant delayed gastric emptying. Findings compatible with gastroparesis in the absence of functional physical obstruction. Recommend clinical correlation with history. *Normal median T1 half 90 minutes for solid egg meal (45-110 minutes). Delayed gastric retention is defined as 90% retained at 1 hour, 60% at 2 hours, 30% at 3 hours, and 10% at 4 hours (normal percent gastric retention is 37-90% at 1 hour, 30-60% at 2 hours, and 0-10% at 4 hours). Laboratory Results WBC 11.97 10^3/uL (3.29-11.43) H 11/10/24 04:25 RBC 3.73 10^6/uL (3.85-5.65) L 11/10/24 04:25 Hgb 11.00 g/dL (11.27-16.99) L 11/10/24 04:25 Hct 34.0 % (36-47) L 11/10/24 04:25 MCV 91.2 fl (85-98) 11/10/24 04:25 MCH 29.5 pg (27-33) 11/10/24 04:25 MCHC 32.4 g/dL (30-55) 11/10/24 04:25 RDW 14.4 % (12.1-15.1) 11/10/24 04:25 Plt Count 568 10^3/cmm (157-399) H 11/10/24 04:25 MPV 8.5 fL (7.4-10.4) 11/10/24 04:25 Neut % (Auto) 77.9 % 11/10/24 04:25 Lymph % (Auto) 10.4 % 11/10/24 04:25 Snyder % (Auto) 9.5 % 11/10/24 04:25 Eos % (Auto) 1.5 % 11/10/24 04:25 Baso % (Auto) 0.3 % 11/10/24 04:25 Neut # (Auto) 9.32 10^3/uL (1.8-7.7) H 11/10/24 04:25 Lymph # (Auto) 1.3 10^3/uL (0.8-4.8) 11/10/24 04:25 Snyder # (Auto) 1.1 10^3/uL (0.2-0.9) H 11/10/24 04:25 Eos # (Auto) 0.2 10^3/uL (0.0-0.8) 11/10/24 04:25 Baso # (Auto) 0.0 10^3/uL (0.0-0.1) 11/10/24 04:25 Nucleated RBC % (auto) 0 % 11/10/24 04:25 Nucleated RBCs # 0.0 /100WBC 11/10/24 04:25 ESR 45 mm/hr (0-15) H 11/07/24 09:22 PT 13.00 SECONDS (12.1-14.9) 11/09/24 08:30 INR 0.92 (0.8-1.2) 11/09/24 08:30 APTT 22.6 SECONDS (23.9-36.7) L 11/07/24 09:22 Sodium 132 mmol/L (136-145) L 11/10/24 04:25 Potassium 4.2 mmol/L (3.5-5.1) 11/10/24 04:25 Chloride 96 mmol/L (98-107) L 11/10/24 04:25 Carbon Dioxide 28 mmol/L (22-29) 11/10/24 04:25 Anion Gap 12.2 (5-19) 11/10/24 04:25 BUN 11 mg/dL (8-23) 11/10/24 04:25 Creatinine 0.5 mg/dL (0.5-0.9) 11/10/24 04:25 GFR Calculation 125.4 mL/min (90-130) 11/10/24 04:25 Glucose 120 mg/dL (65-115) H 11/10/24 04:25 Estimat Average Glucose 148 11/10/24 04:25 Hemoglobin A1c 6.8 % (4.0-6.0) H 11/10/24 04:25 Calculated Osmolality 275 mOsm/kg (285-295) L 11/10/24 04:25 Lactic Acid 1.0 mmol/L (0.5-2.2) 11/07/24 12:17 Calcium 8.1 mg/dL (8.5-10.5) L 11/10/24 04:25 Total Bilirubin 0.2 mg/dL (0.15-1.2) 11/10/24 04:25 AST 9 U/L (0-32) 11/10/24 04:25 ALT 8 U/L (0-33) 11/10/24 04:25 Alkaline Phosphatase 86 U/L (35-105) 11/10/24 04:25 Ammonia 18 umol/L (11-51) 11/07/24 12:17 Lactate Dehydrogenase 242 U/L (135-214) H 11/09/24 04:47 C-Reactive Protein 26.8 mg/L (0.0-4.9) H 11/07/24 12:17 NT-Pro-B Natriuret Pep 98 pg/mL (0-125) 11/07/24 09:22 Total Protein 5.5 g/dL (6.6-8.7) L 11/10/24 04:25 Albumin 2.7 g/dL (3.5-5.2) L 11/10/24 04:25 Globulin 2.8 g/dL (1.3-4.6) 11/10/24 04:25 Lipase 24 U/L (13-60) 11/09/24 04:47 Aldolase 3.6 U/L (< OR = 8.1) 11/08/24 05:43 Angiotensin Convert Enz 11 U/L (9-67) 11/08/24 05:43 Procalcitonin 0.10 ng/mL (0-0.5) 11/07/24 12:17 Fluid Specific Grav 1.024 11/07/24 10:45 Fluid pH 7.5 11/07/24 10:45 Fluid Albumin 2.1 g/dL 11/07/24 10:45 Fluid LDH 267 U/L 11/07/24 10:45 Fluid Cholesterol 77 mg/dL (0-200) 11/07/24 10:45 Fluid Triglycerides 38 mg/dL (0-150) 11/07/24 10:45 Fluid Uric Acid 3 mg/dL 11/07/24 10:45 Peritoneal Amylase Cancelled 11/09/24 10:45 Pleural Total Protein 3.4 g/dL 11/07/24 10:45 Nasal MRSA (PCR) Not detected (Not Detecte) 11/08/24 03:39 Rheumatoid Factor 10.0 IU/mL (0-14) 11/07/24 09:22 Complement C3c 178 mg/dL (83-193) 11/08/24 05:43 Complement C4c 24 mg/dL (15-57) 11/08/24 05:43 CH50 Classical Pathway >60 U/mL (31-60) H 11/08/24 05:43 Adenovirus (PCR) Not detected (NOT DETECT) 11/08/24 03:39 C. pneumoniae DNA (PCR) Not detected (NOT DETECT) 11/08/24 03:39 Coronavirus 229E (PCR) Not detected (NOT DETECT) 11/08/24 03:39 Human Metapneumovir PCR Not detected (NOT DETECT) 11/08/24 03:39 Influenza A (H1) PCR Not detected (NOT DETECT) 11/08/24 03:39 Influ A (H1/09) PCR Not detected (NOT DETECT) 11/08/24 03:39 Influenza A (H3) PCR Not detected (NOT DETECT) 11/08/24 03:39 Influenza Type A (PCR) Not detected (NOT DETECT) 11/08/24 03:39 Influenza Type B (PCR) Not detected (NOT DETECT) 11/08/24 03:39 M. pneumoniae (PCR) Not detected (NOT DETECT) 11/08/24 03:39 Parainfluenza 1 (PCR) Not detected (NOT DETECT) 11/08/24 03:39 Parainfluenza 2 (PCR) Not detected (NOT DETECT) 11/08/24 03:39 Parainfluenza 3 (PCR) Not detected (NOT DETECT) 11/08/24 03:39 Parainfluenza 4 (PCR) Not detected (NOT DETECT) 11/08/24 03:39 RSV Type A (PCR) Not detected (NOT DETECT) 11/08/24 03:39 RSV Type B (PCR) Not detected (NOT DETECT) 11/08/24 03:39 Entero/Rhino (PCR) Not detected (NOT DETECT) 11/08/24 03:39 SARS-CoV-2 (PCR) Not detected (NOT DETECT) 11/08/24 03:39 Vitals Last Vital Signs Temp 97.9 F 11/10/24 12:21 Pulse 79 11/10/24 12:21 Resp 16 11/10/24 12:21 BP 112/64 11/10/24 12:21 Pulse Ox 92 11/10/24 12:21 O2 Del Method Room Air 11/10/24 12:01 Discharge Plan Discharge Patient Disposition: Home Condition: Stable Prescriptions: New polyethylene glycol 3350 17 gram Powder In Packet 17 g PO DAILY 30 Days Qty: 0 0RF sodium chloride 1,000 mg Tablet,Soluble 1,000 mg PO BID 2 Days Qty: 4 0RF amoxicillin-pot clavulanate 875-125 mg tablet 1 tab PO BID 5 Days Qty: 10 0RF metoclopramide HCl [Reglan] 5 mg tablet 5 mg PO BIDWMEAL 15 Days Qty: 30 0RF dapagliflozin propanediol [Farxiga] 5 mg tablet 5 mg PO DAILY Qty: 30 2RF Continued carvedilol 12.5 mg tablet See Rx Instructions .ROUTE .COMPLEX Qty: 90 11RF Dose Instruction: take 1/2 tablet BY MOUTH TWICE DAILY Rx Instructions: take 1/2 tablet BY MOUTH TWICE DAILY paroxetine HCl 20 mg tablet 20 mg PO DAILY Qty: 90 11RF cyclobenzaprine 10 mg tablet See Rx Instructions .ROUTE .COMPLEX Qty: 180 7RF Dose Instruction: TAKE 1 TABLET BY MOUTH THREE TIMES DAILY NEEDED FOR MUSCLE CRAMPS *MAY CAUSE DROWSINESS* Rx Instructions: TAKE 1 TABLET BY MOUTH THREE TIMES DAILY NEEDED FOR MUSCLE CRAMPS *MAY CAUSE DROWSINESS* pravastatin 40 mg tablet 40 mg PO DAILY omeprazole 40 mg capsule,delayed release(DR/EC) 40 mg PO DAILY celecoxib 100 mg capsule 100 mg PO BID PRN (Reason: Pain) lisinopril 20 mg tablet 20 mg PO QAM trazodone 150 mg tablet 75 - 150 mg PO QPM docusate sodium [Colace] 100 mg capsule 100 mg PO BID Qty: 14 0RF famotidine [Pepcid] 20 mg tablet 20 mg PO BEDTIME 14 Days Qty: 14 0RF levofloxacin 750 mg tablet 750 mg PO DAILY 7 Days Qty: 7 0RF Discontinued glimepiride 4 mg tablet 4 mg PO BID Qty: 180 11RF pioglitazone [Actos] 15 mg tablet 15 mg PO DAILY Qty: 90 11RF lactulose 10 gram/15 mL solution 20 g PO BID Discharge Orders: Discharge Order (Routine); Ordered 11/10/24 Ordered By: Cat Bland Referrals: Jose Alberto Singleton MD [Primary Care Provider, Family Practice] - 11/15/24 1:30 pm Lor Barrera MD [Occupational Therapist, Pulmonology] Referral Note: We have notified your physician's clinic of the need for a follow-up appointment to be scheduled. If you have not heard from them within the next 2 business days, please call them directly. SENT REFFERRAL Patient Instructions: Metoclopramide (By mouth), Amoxicillin/Clavulanate Potassium (By mouth) (Augmentin, Augmentin..., Polyethylene Glycol 3350 (By mouth), Dapagliflozin (By mouth) (Farxiga), Sodium Chloride (By mouth) (Natrum Mur), Viral Pneumonia (GEN), Hyponatremia (GEN), Opioid Safety Activity Restrictions/Additional Instructions: Lor Barrera MD [address] [facility] [address], [place] [address] Phone:? Discharge Attestations Time Spent in Discharge Care*: greater than 30 min Quality Metrics Clinical Quality Measures [ No reported AMI, CVA or VTE this stay] Coding Level of Care Code Acute Code for Chg Fwd Diagnoses Pleural effusion J90 Nausea & vomiting R11.2 Chronic hyponatremia E87.1
[2024-11-10 15:14] LABS: Quantiferon Mitogen 7.44 IU/mL; Quantiferon Nil 0.02 IU/mL; Quantiferon Plus TB2 <0.00 IU/mL; Quantiferon TB Gold NEGATIVE (NEGATIVE)
[2024-11-10 15:44] LABS: Cyclic Citrullinated Peptide <16 UNITS
--- NOTE | 2024-11-10 16:43 | NM_ITS ---
WS: [id number] NUCLEAR MEDICINE GASTRIC STUDY CLINICAL INFORMATION: gastroparesis TECHNIQUE: Following oral ingestion of cooked egg mixed with 1.03 mCi technetium 99m sulfur colloid, anterior images of the stomach were obtained over the course of 90 minutes. Activity curve was performed over the course of 90 minutes with linear regression analysis. COMPARISON: None. FINDINGS: Cooked egg mixture ingested. Delayed T1 half emptying 215 minutes (normal T1 half 45 to 110 minutes) T1 half emptying at 60 minutes is 24%. T1 half emptying at 120 minutes is 30% NM/[place] [id number] IMPRESSION: 1. Significant delayed gastric emptying. Findings compatible with gastroparesi s in the absence of functional physical obstruction. Recommend clinical correla tion with history. *Normal median T1 half 90 minutes for solid egg meal (45-110 minutes). Delayed gastric retention is defined as 90% retained at 1 hour, 60% at 2 hour s, 30% at 3 hours, and 10% at 4 hours (normal percent gastric retention is 37-9 0% at 1 hour, 30-60% at 2 hours, and 0-10% at 4 hours).
[2024-11-11 21:48] LABS: Fungitell 1-3-B Glucan Assay <31 pg/mL (<60); Interpretation Negative (Negative)
[2024-11-12 17:33] LABS: Aspergillus AG,EIA,Serum NOT DETECTED; Aspergillus Galactomannan Inde <0.50
[2024-11-13 17:59] LABS: Coccidioides AB CF Serum <1:2
[2024-11-13 21:54] LABS: Amylase, Pleural Fluid 119 U/L
[2024-11-14 14:59] LABS: Pleural Fld Adenosine Deami 12.8 U/L (<9.2)
[2024-11-14 17:45] LABS: Histoplasma capsulatum H Ab NEGATIVE; Histoplasma capsulatum M Ab NEGATIVE
[2024-11-15 16:44] LABS: CENTROMERE B ANTIBODY <1.0 NEG AI (<1.0 NEG); JO-1 ANTIBODY <1.0 NEG AI (<1.0 NEG); RNP ANTIBODY <1.0 NEG AI (<1.0 NEG); SCL-70 ANTIBODY <1.0 NEG AI (<1.0 NEG); SJOGREN'S ANTIBODY (SS-A) <1.0 NEG AI (<1.0 NEG); SM ANTIBODY <1.0 NEG AI (<1.0 NEG); SS-B <1.0 NEG AI (<1.0 NEG)
== END 2024-11-10 14:16 | disposition home or self-care (01) | DRG 187 ==
LOC: ER 13:38 → ER IP 14:29 → MEDSURG 18:20
PROVIDERS: Admitting Provider Student in an Organized Health Care Education/Training Program; Emergency Provider Emergency Medicine; PCP Family Medicine; Visit Provider Student in an Organized Health Care Education/Training Program
DX: J90 Pleural effusion, not elsewhere classified (principal); E87.1 Hypo-osmolality and hyponatremia; R18.8 Other ascites; E78.5 Hyperlipidemia, unspecified; I10 Essential (primary) hypertension; E11.9 Type 2 diabetes mellitus without complications; K59.00 Constipation, unspecified; R11.2 Nausea with vomiting, unspecified; K52.9 Noninfective gastroenteritis and colitis, unspecified; Z79.899 Other long term (current) drug therapy; Z88.5 Allergy status to narcotic agent; Z88.8 Allergy status to other drugs, medicaments and biological substances
CPT/HCPCS: 32555; 36415; 71045; 71260; 74018; 74177; 76830; 78264; 80053; 82042; 82085; 82140; 82150; 82164; 82465; 83036; 83605; 83615; 83690; 83880; 83986; 84145; 84157; 84311; 84315; 84478; 84560; 85025; 85610; 85651; 85730; 86140; 86160; 86162; 86200; 86235; 86255; 86376; 86403; 86431; 86480; 86612; 86635; 86698; 87015; 87040; 87070; 87075; 87102; 87116; 87205; 87206; 87305; 87449; 87486; 87581; 87633; 87801; 88112; 88305; 96365; 96375; 99285; A9541; J2270; J2405; J2543; J9999

== ENCOUNTER 2024-11-23 09:50 | Outpatient (CLI) | payer OTHER, SELFPAY ==
--- NOTE | 2024-11-23 09:53 | MM_ITS ---
WS: [id number] SCREENING DIGITAL BREAST TOMOSYNTHESIS MAMMOGRAM WITH CAD HISTORY: SCREENING COMPARISON: 02/05/2017, 02/09/2018, 10/24/2022 and 05/29/2021 Bilateral CC and MLO with tomosynthesis and synthetic mammography submitted. Computer aided detection analyzed. Breast composition: There are scattered areas of fibroglandular density. New 9.4 mm high density mass against the posterior RIGHT chest wall seen only on the MLO projection. This may be a lymph node but no fatty hilum is noted. Recommend further evaluation to confirm this is a lymph node. New since prior studies. No suspicious grouping of calcifications. MM/MM scr BI tomosynthesis [id number] IMPRESSION: BI-RADS: 0 - Incomplete: Need additional imaging evaluation. FOLLOW UP: Need Additional Imaging RIGHT breast: Spot compression views (exaggerated lateral CC and MLO). True ML. Ultrasound to follow if abnormality persists.
== END 2024-11-23 09:51 | disposition home or self-care (01) ==
PROVIDERS: PCP Family Medicine; Visit Provider Family Medicine
DX: Z12.31 Encounter for screening mammogram for malignant neoplasm of breast (principal); R92.323 Mammographic fibroglandular density, bilateral breasts; R93.89 Abnormal findings on diagnostic imaging of other specified body structures
CPT/HCPCS: 77063; 77067

== ENCOUNTER 2024-12-12 08:59 | Outpatient (CLI) | payer OTHER, SELFPAY ==
--- NOTE | 2024-12-12 09:04 | MM_ITS ---
WS: [id number] ADDITIONAL VIEWS RIGHT MAMMOGRAM WITH DIGITAL BREAST TOMOSYNTHESIS. RIGHT BREAST ULTRASOUND HISTORY: ABNORMAL RIGHT MAMMO COMPARISON: 11/23/2024, 10/24/2022 RIGHT MAMMOGRAM: Spot compression views and true ML with digital breast tomosynthesis and SM. Breast composition: There are scattered areas of fibroglandular density. Reidentified is a well-circumscribed mass against the chest wall of the RIGHT breast seen only on the lateral projection. Mass measures 9 x 8 mm. This may be a lymph node. Ultrasound to follow. RIGHT BREAST ULTRASOUND 2-D and color Doppler imaging submitted. There are several hypoechoic masses in the RIGHT breast towards the axillary tail and axilla. The largest corresponding to the mammographic abnormality measures 0.7 x 0.6 x 0.6 cm. This is a well circumscribed round mass with loss of the normal fatty hilum. This is probably a lymph node but it is an abnormal lymph node. The additional lymph nodes towards the axillary tail are also abnormal with loss of the normal fatty hilum and thickening of the cortex. MM/MM diag RT tomosynthesis [id number] IMPRESSION: BI-RADS: 4- Suspicious Finding - Biopsy Should be Considered FOLLOW UP: Biopsy Recommended Ultrasound-guided biopsy recommended of the hypoechoic mass in the RIGHT breast which corresponds to the mammographic abnormality. There are several similar m asses towards the axillary tail of the RIGHT breast. Recommend biopsy of the ma ss at 10:00 within the axillary tail. This does correspond to the mammographic abnormality. These may be lymph nodes but they are abnormal shape with loss of the normal fatty hilum. Reactive versus neoplastic.
== END 2024-12-12 09:00 | disposition home or self-care (01) ==
PROVIDERS: PCP Family Medicine; Visit Provider Family Medicine
DX: R92.8 Other abnormal and inconclusive findings on diagnostic imaging of breast (principal); R92.323 Mammographic fibroglandular density, bilateral breasts; R59.0 Localized enlarged lymph nodes; N63.11 Unspecified lump in the right breast, upper outer quadrant
CPT/HCPCS: 76642; 77061; G0279

== ENCOUNTER 2024-12-22 11:04 | Inpatient (IN) | payer OTHER, SELFPAY ==
[2024-12-22] VITALS (43 sets, daily range): BP systolic 121–166; BP diastolic 73–96; PULSE 75–104; RESP 14–35; TEMP 36.3–36.6; O2SAT 90–96; BMI 22.1
--- NOTE | 2024-12-22 11:59 | XR_ITS ---
WS: [id number] Portable AP upright chest, 12/22/2024 Clinical Data: dyspnea/cough Comparison: Portable chest, 11/09/2024 Findings: There are moderate bilateral pleural effusions along with bibasilar opacification. The opacifications could represent atelectasis and/or pneumonia along with basilar pulmonary vascular congestion. The upper lobes are clear. There are no nodules or masses. No pneumothorax is seen. The heart is normal. The aortic arch shows mild tortuosity. Monitor leads are on the chest wall. There is an anterior cervical disc fusion. XR/XR chest 1V portable [id number] Impression: 1. Development of moderate bilateral pleural effusions. 2. Bibasilar opacifications. 3. Atherosclerosis.
[2024-12-22 12:23] LABS: Basophils % 0.2 %; Eosinophils % 0.2 %; Hematocrit 41.2 % (36-47); Lymphocytes # 0.5 10^3/uL (0.8-4.8); Lymphocytes % 3.6 %; Mean Corpuscular Hemoglobin 29.4 pg (27-33); Mean Corpuscular Volume 84.1 fl (85-98); Mean Platelet Volume 8.7 fL (7.4-10.4); Monocytes # 0.9 10^3/uL (0.2-0.9); Monocytes % 7.4 %; Neutrophils # 11.11 10^3/uL (1.8-7.7); Nucleated Red Blood Cells % 0 %; Platelet Count 461 10^3/cmm (157-399); Red Cell Distribution Width 12.9 % (12.1-15.1); White Blood Count 12.63 10^3/uL (3.29-11.43)
[2024-12-22 12:39] LABS: Alanine Aminotransferase 9 U/L (0-33); Albumin Level 3.1 g/dL (3.5-5.2); Alkaline Phosphatase 115 U/L (35-105); Anion Gap 17.4 (5-19); Aspartate Amino Transferase 17 U/L (0-32); Blood Urea Nitrogen 20 mg/dL (8-23); Calcium 8.6 mg/dL (8.5-10.5); Carbon Dioxide 27 mmol/L (22-29); Chloride 75 mmol/L (98-107); Globulin 2.5 g/dL (1.3-4.6); Glomerular Filtration Rate 85.1 mL/min (90-130); Glucose 136 mg/dL (65-115); Osmolality Calculated 247 mOsm/kg (285-295); Potassium 3.4 mmol/L (3.5-5.1); Total Bilirubin 0.2 mg/dL (0.15-1.2); Total Protein 5.6 g/dL (6.6-8.7)
--- NOTE | 2024-12-22 12:46 | W.ED.SOB ---
HPI - SOB/Dyspnea General: Chief Complaint: Shortness of Breath/Dyspnea Stated Complaint: SOB, Swelling, pain [place] sent Time Seen by Provider: 12/22/24 11:59 History of Present Illness: HPI Narrative: 59-year-old female presents emergency room complaining of shortness of breath with history of fluid retention. States she feels like she is having more fluid buildup more swelling in her legs her oxygen saturations are normal on arrival here she denies any chest pain. Associated symptoms: Reports chest congestion and orthopnea; Deny abdominal pain, chest pain or fever(s) Related Data Home Medications ?Medication ?Instructions ?Recorded ?Confirmed celecoxib 100 mg capsule 100 mg PO BID PRN Pain 11/03/24 12/22/24 omeprazole 40 mg capsule,delayed 40 mg PO DAILY PRN Acid Reflux 11/03/24 12/22/24 release pravastatin 40 mg tablet 40 mg PO DAILY 11/03/24 12/22/24 carvedilol 12.5 mg tablet 6.25 mg PO BID 12/22/24 12/22/24 cyclobenzaprine 10 mg tablet 10 mg PO TID PRN muscle cramps 12/22/24 12/22/24 docusate sodium 100 mg capsule 100 mg PO BID PRN Constipation 12/22/24 12/22/24 (Colace) furosemide 20 mg tablet 20 mg PO DAILY 12/22/24 12/22/24 glimepiride 4 mg tablet 4 mg PO BID 12/22/24 12/22/24 lisinopril 20 mg tablet 20 mg PO QAM 12/22/24 12/22/24 ondansetron HCl 4 mg tablet 4 mg PO .Q4-6H PRN Nausea And 12/22/24 12/22/24 Vomiting paroxetine HCl 20 mg tablet 20 mg PO DAILY 12/22/24 12/22/24 tramadol 50 mg tablet 50 mg PO Q8H PRN Pain 12/22/24 12/22/24 trazodone 150 mg tablet 75 mg PO BEDTIME insomnia 12/22/24 12/22/24 Previous Rx's ?Medication ?Instructions ?Recorded dapagliflozin propanediol 5 mg 5 mg PO DAILY #30 tabs 11/10/24 tablet (Farxiga) Allergies Allergy/AdvReac Type Severity Reaction Status Date / Time amitriptyline AdvReac Intermediate anxious Verified 11/07/24 10:38 atorvastatin (From Lipitor) AdvReac Intermediate cramps Verified 11/07/24 10:38 codeine AdvReac Intermediate Unknown Verified 11/07/24 10:38 gabapentin (From Neurontin) AdvReac Intermediate stomach Verified 11/07/24 10:38 pain lorazepam AdvReac Intermediate headaches Verified 11/07/24 10:38 simvastatin (From Zocor) AdvReac Intermediate leg cramps Verified 11/07/24 10:38 Review of Systems Const: Denies: fever(s) or chills Card: Reports: edema, swelling of feet/ankles, dyspnea on exertion and orthopnea; Denies: chest pain Resp: Reports: dyspnea and chest congestion GI: Denies: abdominal pain : Denies: dysuria, urinary frequency or urinary urgency Musc: Denies: neck pain or back pain Skin/Breast: Denies: rash PFSH ED PFSH: Medical History (Updated 12/27/24 @ 08:19 by Ramone Mcnair DO) Hypertension Diabetes mellitus type 2, controlled Hyponatremia Other thrombocytosis Hyperlipidemia Surgical History History of neck surgery Family History Brother Stomach cancer Father Leukemia Social History Smoking and tobacco/nicotine status: never used tobacco/nicotine Alcohol intake: never Substance/Drug Use: never Physical Exam Const: GENERAL APPEARANCE: cooperative ORIENTATION/CONSCIOUSNESS: Yes awake, Yes oriented to person, Yes oriented to place and Yes oriented to time HENMT: COMMON NORMALS: normocephalic, atraumatic and hearing grossly normal bilaterally HEAD & SCALP: normocephalic and atraumatic Resp: AUSCULTATION: crackles and diminished lung sounds Cardio: COMMON NORMALS: regular rate, regular rhythm and No murmurs present (Cardio) RATE: regular rate RHYTHM: regular rhythm GI: COMMON NORMALS: Soft to palpation and No hepatosplenomegaly present AUSCULTATION: Yes normoactive bowel sounds PALPATION: Yes Soft to palpation, No Tenderness to palpation present (GI), No Guarding due to palpation present (GI) and Yes No hepatosplenomegaly present Extremity: COMMON NORMALS: normal to inspection, capillary refill normal and no calf tenderness OTHER: 2+ edema lower extremities Neuro: SENSORIUM/ORIENTATION: Yes oriented to person, Yes oriented to place and Yes oriented to time Skin: COMMON NORMALS: no rashes or lesions noted GENERAL SKIN EXAM: no rashes or lesions noted Course Vital Signs: Vital signs: Vital Signs Temperature 98.6 F 12/27/24 06:59 Pulse Rate 90 12/27/24 07:53 Respiratory Rate 16 12/27/24 07:53 Blood Pressure 147/83 12/27/24 06:59 Pulse Oximetry 98 12/27/24 07:53 Oxygen Delivery Me thod Room Air 12/27/24 07:53 MDM - SOB/Dyspnea Medical Decision Making Admitted for bilateral pneumonia with pleural effusions possibly related to her mass. She also has acute hyponatremia which may be related to SIADH. Discussed with hospitalist orders written Medical Records I reviewed the patient's medical records. Lab Data I reviewed the patient's lab results. 12/27/24 04:39 12/27/24 04:39 Labs/Radiology: Radiology Impressions Chest X-Ray 12/22/24 11:59 Impression: 1. Development of moderate bilateral pleural effusions. 2. Bibasilar opacifications. 3. Atherosclerosis. Laboratory Results WBC 12.63 10^3/uL (3.29-11.43) H 12/22/24 12:16 RBC 4.90 10^6/uL (3.85-5.65) 12/22/24 12:16 Hgb 14.40 g/dL (11.27-16.99) 12/22/24 12:16 Hct 41.2 % (36-47) 12/22/24 12:16 MCV 84.1 fl (85-98) L 12/22/24 12:16 MCH 29.4 pg (27-33) 12/22/24 12:16 MCHC 35.0 g/dL (30-55) 12/22/24 12:16 RDW 12.9 % (12.1-15.1) 12/22/24 12:16 Plt Count 461 10^3/cmm (157-399) H 12/22/24 12:16 MPV 8.7 fL (7.4-10.4) 12/22/24 12:16 Neut % (Auto) 88.0 % 12/22/24 12:16 Lymph % (Auto) 3.6 % 12/22/24 12:16 [place] % (Auto) 7.4 % 12/22/24 12:16 Eos % (Auto) 0.2 % 12/22/24 12:16 Baso % (Auto) 0.2 % 12/22/24 12:16 Neut # (Auto) 11.11 10^3/uL (1.8-7.7) H 12/22/24 12:16 Lymph # (Auto) 0.5 10^3/uL (0.8-4.8) L 12/22/24 12:16 [place] # (Auto) 0.9 10^3/uL (0.2-0.9) 12/22/24 12:16 Eos # (Auto) 0.0 10^3/uL (0.0-0.8) 12/22/24 12:16 Baso # (Auto) 0.0 10^3/uL (0.0-0.1) 12/22/24 12:16 Nucleated RBC % (auto) 0 % 12/22/24 12:16 Nucleated RBCs # 0.0 /100WBC 12/22/24 12:16 Sodium 116 mmol/L (136-145) L* 12/22/24 12:16 Potassium 3.4 mmol/L (3.5-5.1) L 12/22/24 12:16 Chloride 75 mmol/L (98-107) L 12/22/24 12:16 Carbon Dioxide 27 mmol/L (22-29) 12/22/24 12:16 Anion Gap 17.4 (5-19) 12/22/24 12:16 BUN 20 mg/dL (8-23) 12/22/24 12:16 Creatinine 0.7 mg/dL (0.5-0.9) 12/22/24 12:16 GFR Calculation 85.1 mL/min (90-130) L 12/22/24 12:16 Glucose 136 mg/dL (65-115) H 12/22/24 12:16 Calculated Osmolality 247 mOsm/kg (285-295) L 12/22/24 12:16 Lactic Acid 1.3 mmol/L (0.5-2.2) 12/22/24 14:11 Calcium 8.6 mg/dL (8.5-10.5) 12/22/24 12:16 Iron 46 ug/dL (37-145) 12/22/24 12:16 TIBC 247 mcg/dl 12/22/24 12:16 % Saturation 18.6 % (20-50) L 12/22/24 12:16 Unsat Iron Binding 201 ug/dL (112-347) 12/22/24 12:16 Total Bilirubin 0.2 mg/dL (0.15-1.2) 12/22/24 12:16 AST 17 U/L (0-32) 12/22/24 12:16 ALT 9 U/L (0-33) 12/22/24 12:16 Alkaline Phosphatase 115 U/L (35-105) H 12/22/24 12:16 Troponin T Baseline 24 ng/L (0-10) H 12/22/24 12:16 Troponin T 120 Minute 21.36 ng/L (0-10) H 12/22/24 14:11 Delta Troponin T -2.64 ABS# (0-10) L 12/22/24 14:11 C-Reactive Protein 32.2 mg/L (0.0-4.9) H 12/22/24 12:16 NT-Pro-B Natriuret Pep 436 pg/mL (0-125) H 12/22/24 12:16 Total Protein 5.6 g/dL (6.6-8.7) L 12/22/24 12:16 Albumin 3.1 g/dL (3.5-5.2) L 12/22/24 12:16 Globulin 2.5 g/dL (1.3-4.6) 12/22/24 12:16 Vitamin B12 1211 pg/mL (232-1245) 12/22/24 12:16 Procalcitonin 2.08 ng/mL (0-0.5) H 12/22/24 12:16 All radiology interpretation(s) finalized by discharge Discharge Plan Discharge Patient Disposition: Admitted As Inpatient Admit Provider: Arcadio Cabral Clinical Impression: Acute hyponatremia, Leukocytosis, Diabetes mellitus type 2, controlled, Pleural effusion, Breast mass, right Pneumonia Qualifiers: Pneumonia type: due to unspecified organism Laterality: right Lung location: unspecified part of lung Qualified Code(s): J18.9 - Pneumonia, unspecified organism Condition: Stable Discharge Diet: Regular Discharge Activity: Resume usual activity and Increase activity as tolerated Coding Level of Care Code ED Clinical Assistant Professor for Jarad Garcia
[2024-12-22 13:08] LABS: Sodium 116 mmol/L (136-145)
--- NOTE | 2024-12-22 13:25 | ECG_ITS ---
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 Measurements Intervals [place] Rate: 95 P: 49 MA: 145 QRS: 26 QRSD: 109 T: 55 QT: 367 QTc: 463 Interpretive Statements SINUS RHYTHM POSSIBLE LEFT ATRIAL ENLARGEMENT [-0.1mV P-WAVE IN V1/V2] LOW QRS VOLTAGE IN EXTREMITY LEADS [QRS DEFLECTION < 0.5 mV IN LIMB LEADS] Compared to ECG 11/03/2024 03:45:02 Low QRS voltage now present Myocardial infarct finding no longer present Electronically Signed On 12-23-2024 14:57:45 CDT by Mandeep Gallagher M.D. [id number] [id number]
[2024-12-22] MEDS: sodium chloride 3% 100 ML in empty flexible container 1 EACH 200 ML IV (13:33)
[2024-12-22 13:45] LABS: Troponin(5th) Baseline 24 ng/L (0-10)
--- NOTE | 2024-12-22 13:52 | PC.PHAR ---
Pt states her pcp took her off of several medications to try to figure out what is wrong with her. She just picked these medications up and has 90 day supplies. I marked them as on hold and left them on her med list instead of removing them all together. They are as follows: Carvedilol 12.5mg 6.25mg bid Farxiag 5mg daily Lisinopril 20mg qam Glimepiride 4mg bid Paxil 20mg daily
--- NOTE | 2024-12-22 14:02 | PM.HP ---
Providers/Chief Complaint Primary Care Provider: Jose Alberto Singleton MD Chief Complaint: SOB, Swelling, pain Dr Singleton sent History of Present Illness Irish Gaviria is a 59 year old female [facility] past medical history of hypertension, type 2 diabetes mellitus, hyperlipidemia who was last admitted to the hospital back in October when she underwent thoracentesis and was treated for hyponatremia. Patient states since last discharge she has been to a room manager where she had repeat thoracentesis. She was scheduled for PET scan last week on Thursday which she could not go through because of panic attack. She did have a mammogram earlier this month which was suspicious for possible malignancy and she has been scheduled for outpatient biopsy. She states she has been having extreme nausea and vomiting along with dry heaving for last 4 days which increased today morning so she presented to the ER. Complaining of mild dizziness. Denies any headache, difficulty in breathing, fever, diarrhea. Complains of occasional dysuria. In the ER patient was found to be hyponatremic with sodium down to 116, chest x-ray showing development of bilateral moderate pleural effusion. Requested patient to get 100 cc of 3% normal saline. Review of Systems General: Reports: 10 or more systems reviewed and unremarkable except in HPI and below Const: Denies: fever(s), chills, body aches, change in appetite, change in weight, malaise, night sweats, diaphoresis, change in sleep pattern, daytime sleepiness or snoring Eyes: Denies: change in vision, blurry vision, photophobia, eye discomfort or eye discharge ENMT: Denies: throat pain, enlarged tonsils, hoarseness, mouth pain, oral sores, dry mouth, tinnitus, nasal congestion or post nasal drip Card: Denies: chest pain, palpitations, irregular heart rhythm, edema, swelling of feet/ankles, lightheadedness, syncope, pre-syncope, dyspnea on exertion, orthopnea, leg pain with exertion or acrocyanosis Resp: Denies: dyspnea, productive cough, non-productive cough, wheezing, stridor, pain on inspiration, change in phlegm color, hemoptysis or chest congestion GI: Denies: abdominal pain, nausea, vomiting, hematemesis, coffee ground emesis, dysphagia, heartburn, diarrhea, constipation, bloating, GI cramping, change in bowel habits, pain on defecation, hematochezia or melena : Denies: flank pain, dysuria, urinary frequency, urinary urgency, urinary hesitancy, nocturia or hematuria Musc: Denies: neck pain, back pain, extremity pain, joint pain, joint swelling, joint redness, joint stiffness or limited range of motion Neuro: Denies: headache(s), numbness in extremities, weakness in extremities, sensory changes, lack of coordination, difficulty walking, frequent falls, dizziness, vertigo, confusion, Slurred speech present, difficulty communicating thoughts or seizure-like activity Psych: Denies: anxiety, depression, mood swings, panic attacks, hopelessness or irritability Endo: Denies: polyuria, polydipsia, tired all the time, cold intolerance, excessive sweating, flushing or heat intolerance Meng/Lymph: Denies: easy bruising or easy bleeding All/Imm: Denies: tongue swelling, facial swelling or acute wheezing Medications/Allergies Home Medications ?Medication ?Instructions ?Recorded ?Confirmed ?Last Taken ?Type celecoxib 100 mg capsule 100 mg PO BID PRN Pain 11/03/24 12/22/24 11/07/24 History omeprazole 40 mg capsule,delayed 40 mg PO DAILY PRN Acid Reflux 11/03/24 12/22/24 Unknown History release pravastatin 40 mg tablet 40 mg PO DAILY 11/03/24 12/22/24 12/22/24 History dapagliflozin propanediol 5 mg 5 mg PO DAILY #30 tabs 11/10/24 12/22/24 Unknown Rx tablet (Farxiga) carvedilol 12.5 mg tablet 6.25 mg PO BID 12/22/24 12/22/24 Unknown History cyclobenzaprine 10 mg tablet 10 mg PO TID PRN muscle cramps 12/22/24 12/22/24 Unknown History docusate sodium 100 mg capsule 100 mg PO BID PRN Constipation 12/22/24 12/22/24 Unknown History (Colace) furosemide 20 mg tablet 20 mg PO DAILY 12/22/24 12/22/24 12/22/24 History glimepiride 4 mg tablet 4 mg PO BID 12/22/24 12/22/24 Unknown History lisinopril 20 mg tablet 20 mg PO QAM 12/22/24 12/22/24 Unknown History ondansetron HCl 4 mg tablet 4 mg PO .Q4-6H PRN Nausea And 06/12/25 06/12/25 Unknown History Vomiting paroxetine HCl 20 mg tablet 20 mg PO DAILY 12/22/24 12/22/24 12/22/24 History tramadol 50 mg tablet 50 mg PO Q8H PRN Pain 12/22/24 12/22/24 Unknown History trazodone 150 mg tablet 75 mg PO BEDTIME insomnia 12/22/24 12/22/24 12/21/24 History Allergies Allergy/AdvReac Type Severity Reaction Status Date / Time amitriptyline AdvReac Intermediate anxious Verified 11/07/24 10:38 atorvastatin (From Lipitor) AdvReac Intermediate cramps Verified 11/07/24 10:38 codeine AdvReac Intermediate Unknown Verified 11/07/24 10:38 gabapentin (From Neurontin) AdvReac Intermediate stomach Verified 11/07/24 10:38 pain lorazepam AdvReac Intermediate headaches Verified 11/07/24 10:38 simvastatin (From Zocor) AdvReac Intermediate leg cramps Verified 11/07/24 10:38 PFSH Acute PFSH: Medical History (Updated 12/22/24 @ 15:14 by Arcadio Cabral MD) Hypertension Diabetes mellitus type 2, controlled Hyponatremia Other thrombocytosis Hyperlipidemia Surgical History History of neck surgery Family History Brother Stomach cancer Father Leukemia Social History Smoking and tobacco/nicotine status: never used tobacco/nicotine Alcohol intake: never Substance/Drug Use: never Vitals/I&O/Wt Last Vital Signs Temp 97.7 F 12/22/24 11:17 Pulse 100 12/22/24 13:00 Resp 20 H 12/22/24 11:17 BP 162/89 12/22/24 13:00 Pulse Ox 93 12/22/24 13:00 O2 Del Method Room Air 12/22/24 13:00 Weight last 48 hrs Weight 49.442 kg Physical Exam Narrative: General: No acute distress, AO x3 HEENT: PERRLA, pupils bilaterally equal and reactive Chest: Normal vesicular breath sounds, no added sounds, equal good air entry bilaterally CVS: S1-S2 regular, no murmurs, no tachycardia, no gallops, no rubs Abdomen: Soft, nontender, no organomegaly, bowel sounds present Neuro: No focal deficits, no facial deformity, AO x3, power 5/5 in all limbs Data 12/22/24 12:16 12/22/24 12:16 A&P Assessment and plan (1) Acute hyponatremia: Acute symptomatic hyponatremia. Most likely in setting of possible fluid overload versus in setting of malignancy. Check urinalysis, urine lites. Appreciate recent A1c, lipid panel. TSH normal within last. Blood sugar 146. High concerns for SIADH related to malignancy. Fluid restriction to less than 1200 cc. Check PTH related peptide urine lites urine osmolality. Appreciate serum osmolality of 247 which is low. Patient already received 100 cc of 3% normal saline. Depending on urine lites if sodium level less than 40 will plan for normal saline infusion at 45 cc/h for 1 bag while monitoring sodium level every 6 hours. Will repeat urine sodium and urine osmolality tomorrow morning. If sodium levels remain less than 40 then it is most likely hypovolueimic hyponatremia otherwise concerns for SIADH. Check sodium level every 6 hours. Target improvement of sodium level up to 8 mEq in next 24 hours. (2) Breast mass, right: Seen on recent mammogram. Will plan for possible biopsy. (3) Leukocytosis: White count of 12,000. Cannot rule out pneumonia. Appreciate chest x-ray. Check urinalysis, MRSA swab, sputum culture blood culture. CT chest. Patient does have minimal pleural fluid. Underwent thoracentesis twice in last 2 admissions. For now cannot rule out empyema. Empirically start patient on IV vancomycin and Zosyn. Discontinue vancomycin if MRSA swab negative. Add azithromycin for atypical coverage. (4) Nausea & vomiting: Most likely in setting of acute hyponatremia (5) Hypertension: Goal blood pressure less than 140/90 mmHg. Continue with home dose of Coreg and lisinopril. Uptitrate as per goal blood pressure. (6) Diabetes mellitus type 2, controlled: Recent A1c of 6.8. Takes glimepiride 4 mg twice daily at home. Hold OHA. Insulin sliding scale low-dose protocol. Insulin requirement in next 24 hours will uptitrate or add Lantus. Plan Full code Carb consistent diet Protonix for PUD prophylaxis Heparin for DVT prophylaxis. Hold for breast biopsy for now. PDMP PDMP Reviewed: Not Reviewed Attestations Medical Necessity Statement*: Admission for more than 2 midnights for management of acute hyponatremia with concerns for SIADH Critical Care Time: The high probability of a clinically significant, sudden or life threatening deterioration of the patient's [renal] system(s) required my full and direct attention, intervention and personal management. The critical care time is as shown. This time is in addition to time spent performing any reported procedures but includes the following: [x] Data and vital sign review and interpretation [x] Patient assessment, examination and intervention [x] Documentation [x] Medication orders and management Critical Care Time (min): 80 Coding Level of Care Code Critical Care >/= 30 minutes Critical care time (in minutes): 80 The high probability of a clinically significant, sudden or life threatening deterioration, as referenced in this documentation, required my full and direct attention, intervention and personal management. The critical care time shown is in addition to time spent performing any reported separately billable procedures and includes the following: [x] Data and vital sign review and interpretation [x] Patient assessment, examination and intervention [x] Medication orders and management [x] Patient/Family updates as able [x] Care Coordination and Documentation. Other Coding Information This patient has a high probability of clinically significant, sudden or life threatening deterioration of the patient's (neurological/pulmonary/cardiac/renal/ID/endocrine) systems required my full, direct attention, the highest level of physician preparedness for urgent intervention and personal management. I managed/supervised life or organ supporting interventions that required frequent physician assessment. I devoted my full attention in the ICU to the direct care of this patient for the period of time indicated above. Time I spent with family or surrogate(s) is included only if the patient was incapable of providing necessary information or participating in decision making. This time includes the following services provided: Telemetry review Hemodynamic interpretation, assessment and management Review and interpretation of CXR Review and interpretation of lab values Review and interpretation of microbiologic data and culture results Review of medications and administration Review and interpretation of Nutrition requirements and management Discussion of management with other consultants and services Clinical update to family members Diagnoses Acute hyponatremia E87.1 Breast mass, right N63.10 Leukocytosis D72.829 Nausea & vomiting R11.2 Hypertension I10 Diabetes mellitus type 2, controlled E11.9 Time Spent (min) 80
[2024-12-22 14:33] LABS: NT Pro B Type Natriuretic Pept 436 pg/mL (0-125); Procalcitonin 2.08 ng/mL (0-0.5)
[2024-12-22 14:41] LABS: Troponin 5 2HR 21.36 ng/L (0-10)
[2024-12-22 14:43] LABS: Lactic Sepsis W/Reflex 1.3 mmol/L (0.5-2.2)
[2024-12-22 14:44] LABS: Iron 46 ug/dL (37-145); Percent Saturation 18.6 % (20-50); Total Iron Binding Capacity 247 mcg/dl; Unsaturated Iron Binding 201 ug/dL (112-347)
[2024-12-22 14:50] LABS: Troponin 5 2HR Delta -2.64 ABS# (0-10)
[2024-12-22 15:00] LABS: C Reactive Protein 32.2 mg/L (0.0-4.9)
--- NOTE | 2024-12-22 15:13 | ECG_ITS ---
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 Measurements Intervals [place] Rate: 94 P: 51 ND: 159 QRS: 26 QRSD: 95 T: 59 QT: 363 QTc: 456 Interpretive Statements SINUS RHYTHM SEPTAL MYOCARDIAL INFARCTION , PROBABLY OLD [40+ ms Q WAVE IN V1/V2] Compared to ECG 12/22/2024 13:25:46 Myocardial infarct finding now present Electronically Signed On 12-23-2024 15:04:16 CDT by Mandeep Gallagher M.D. [email or web address] [id number]
[2024-12-22] MEDS: morphine 4 mg/mL SDV 1 mL 2 MG IVP ×2 (15:45→20:21)
[2024-12-22] MEDS: pantoprazole 40 mg SDV IVP (15:46)
[2024-12-22] MEDS: heparin 5,000 unit/mL INJ 1 mL 5000 UNIT SUBCUT (15:46)
[2024-12-22 15:52] LABS: Bilirubin Urine Negative (Negative); Blood Urine Negative (Negative); Glucose Urine UA 1+ (Normal); Ketones Urine 2+ (Negative); Leukocyte Esterase Urine Negative (Negative); Nitrate Urine Negative (Negative); Protein Urine Trace (Negative); Specific Gravity, Urine 1.016 (1.005-1.030); Urine Appearance Clear (CLEAR); Urine Color Yellow (Yellow); Urobilinogen Urine 0.2 mg/dL (Negative); pH Urine 6.5 (5-7)
[2024-12-22 15:57] LABS: Add Urine Microscopic? YES; Bacteria Urine None Seen /hpf; Hyaline Casts Urine 0.81 /lpf; RBC Urine 0-2 /hpf (0-2); Squamous Epithelial Cell Urine 0-5 /hpf (0-5); WBC Urine 0-5 /hpf (0-5)
[2024-12-22 16:09] LABS: Potassium, Radom Urine 21 mmol/L; Urine Random Chloride 24 mmol/L
[2024-12-22 16:11] LABS: Urine Random Sodium 14 mmol/L
[2024-12-22 16:12] LABS: Vitamin B12 1211 pg/mL (232-1245)
[2024-12-22] MEDS: docusate sodium 100 mg Capsule PO (16:56)
[2024-12-22] MEDS: carvedilol 6.25 mg Tablet PO (16:56)
[2024-12-22] MEDS: vancomycin 500 MG in sodium chloride 0.9% (plus) 100 ML 200 MG IV (16:57)
[2024-12-22 17:09] LABS: Glucose Point of Care 122 mg/dL (70-110)
[2024-12-22] MEDS: piperacillin-tazobactam 3.375 GM in sodium chloride 0.9% (plus) 50 ML IV ×2 (17:36→23:28)
[2024-12-22 18:19] LABS: Sodium 117 mmol/L (136-145)
[2024-12-22 18:27] LABS: MRSA PCR OZH (swab) NOT DETECTED (Not Detecte)
[2024-12-22] MEDS: sodium chloride 0.9% 1,000 ML 50 ML IV (18:35)
[2024-12-22 18:51] LABS: Troponin 5 6HR 21.85 ng/L (0-10)
[2024-12-22 18:54] LABS: Troponin 5 6HR Delta -2.15 ng/L (0-12)
--- NOTE | 2024-12-22 19:13 | ECG_ITS ---
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 Measurements Intervals [place] Rate: 81 P: 24 OK: 149 QRS: 12 QRSD: 117 T: 40 QT: 404 QTc: 470 Interpretive Statements SINUS RHYTHM SEPTAL MYOCARDIAL INFARCTION , PROBABLY OLD [40+ ms Q WAVE IN V1/V2] Compared to ECG 12/22/2024 15:34:34 No significant changes Electronically Signed On 12-23-2024 15:03:30 CDT by Mandeep Gallagher M.D. [email or web address] [id number]
[2024-12-22 20:00] LABS: Carcinoembryonic Antigen 28.4 ng/mL (0.0-4.7)
[2024-12-22 20:39] LABS: Glucose Point of Care 156 mg/dL (70-110)
[2024-12-22] MEDS: insulin lispro 100 unit/1 mL SUBCUT (20:42)
[2024-12-22] MEDS: trazodone 50 mg Tablet 75 MG PO (20:43)
[2024-12-22] MEDS: HYDROcodone-acetaminophen 5-325 mg Tablet 1 TAB PO (22:09)
[2024-12-22] MEDS: ketorolac 30 mg/mL INJ 15 MG IVP (22:09)
[2024-12-22 22:35] LABS: Anion Gap 13.7 (5-19); Blood Urea Nitrogen 17 mg/dL (8-23); Carbon Dioxide 28 mmol/L (22-29); Chloride 79 mmol/L (98-107); Glomerular Filtration Rate 101.6 mL/min (90-130); Glucose 132 mg/dL (65-115); Osmolality Calculated 249 mOsm/kg (285-295); Phosphorus 1.9 mg/dL (2.5-4.5)
[2024-12-22 23:05] LABS: Potassium 2.7 mmol/L (3.5-5.1); Sodium 118 mmol/L (136-145)
[2024-12-22] MEDS: potassium chloride oral liq 20 mEq/15 mL UDC 40 MEQ PO (23:28)
[2024-12-22] MEDS: ondansetron 2 mg/ML SDV 2 mL 4 MG IVP (23:33)
--- NOTE | 2024-12-22 23:55 | PC.NURSE ---
Na level: Dr. Cabral updated on patient lab values and gave telephone orders to continue with current treatment.
--- NOTE | 2024-12-22 23:57 | PC.NURSE ---
R Arm pain: Patient complained of severe right arm pain. Arm was unremarkable with no swelling or redness, grain grader were equal. Dr. Cbaral gave telephone orders for 5mg hydrocodone Q6h PRN.
[2024-12-23] VITALS (76 sets, daily range): BP systolic 102–155; BP diastolic 65–102; PULSE 73–102; RESP 6–29; TEMP 36.5; O2SAT 79–95; BMI 24.2
[2024-12-23 04:32] LABS: Basophils % 0.1 %; Eosinophils # 0.2 10^3/uL (0.0-0.8); Eosinophils % 1.4 %; Hematocrit 36.4 % (36-47); Lymphocytes # 0.6 10^3/uL (0.8-4.8); Lymphocytes % 5.5 %; Mean Corpuscular HGB Conc 34.3 g/dL (30-55); Mean Corpuscular Hemoglobin 29.6 pg (27-33); Mean Corpuscular Volume 86.1 fl (85-98); Mean Platelet Volume 8.9 fL (7.4-10.4); Monocytes # 1.3 10^3/uL (0.2-0.9); Neutrophils # 9.26 10^3/uL (1.8-7.7); Neutrophils % 81.5 %; Nucleated Red Blood Cells % 0 %; Platelet Count 420 10^3/cmm (157-399); Red Blood Count 4.23 10^6/uL (3.85-5.65); Red Cell Distribution Width 13.4 % (12.1-15.1); White Blood Count 11.36 10^3/uL (3.29-11.43)
[2024-12-23 04:56] LABS: Alanine Aminotransferase 9 U/L (0-33); Albumin Level 2.6 g/dL (3.5-5.2); Alkaline Phosphatase 99 U/L (35-105); Anion Gap 18.1 (5-19); Aspartate Amino Transferase 14 U/L (0-32); Blood Urea Nitrogen 18 mg/dL (8-23); Calcium 8.2 mg/dL (8.5-10.5); Carbon Dioxide 26 mmol/L (22-29); Chloride 80 mmol/L (98-107); Globulin 2.8 g/dL (1.3-4.6); Glomerular Filtration Rate 85.1 mL/min (90-130); Glucose 129 mg/dL (65-115); Osmolality Calculated 256 mOsm/kg (285-295); Phosphorus 2.2 mg/dL (2.5-4.5); Potassium 3.1 mmol/L (3.5-5.1); Sodium 121 mmol/L (136-145); Total Bilirubin 0.2 mg/dL (0.15-1.2); Total Protein 5.4 g/dL (6.6-8.7)
[2024-12-23] MEDS: lisinopril 20 mg Tablet PO (05:02)
[2024-12-23] MEDS: vancomycin 500 MG in sodium chloride 0.9% (plus) 100 ML 200 MG IV (05:02)
[2024-12-23 05:17] LABS: Sodium 119 mmol/L (136-145)
[2024-12-23 05:28] LABS: Folate Level 8.7 ng/mL (4.8-37.3)
[2024-12-23 06:17] LABS: CA 125 > 15000.0 U/mL (0-35)
[2024-12-23] MEDS: morphine 4 mg/mL SDV 1 mL 2 MG IVP ×4 (06:23→20:47)
--- NOTE | 2024-12-23 06:54 | PHA.VACGOAL ---
Vancomycin Goal - Goal Vancomycin Goal:: 15-20 mg/L Vancomycin Indication:: Pneumonia - Therapy Current therapy:: Pip/Tazo Day of therpy:: Day [1]of [] . Actual body weight (kg): 52.5 kg - Data Labs: WBC 11.36 10^3/uL (3.29-11.43) 12/23/24 03:55 RBC 4.23 10^6/uL (3.85-5.65) 12/23/24 03:55 Hgb 12.50 g/dL (11.27-16.99) 12/23/24 03:55 Hct 36.4 % (36-47) 12/23/24 03:55 MCV 86.1 fl (85-98) 12/23/24 03:55 MCH 29.6 pg (27-33) 12/23/24 03:55 MCHC 34.3 g/dL (30-55) 12/23/24 03:55 RDW 13.4 % (12.1-15.1) 12/23/24 03:55 Sodium 119 mmol/L (136-145) L* 12/23/24 03:55 Sodium 121 mmol/L (136-145) L 12/23/24 03:55 Potassium 3.1 mmol/L (3.5-5.1) L 12/23/24 03:55 Chloride 80 mmol/L (98-107) L 12/23/24 03:55 Carbon Dioxide 26 mmol/L (22-29) 12/23/24 03:55 Anion Gap 18.1 (5-19) 12/23/24 03:55 BUN 18 mg/dL (8-23) 12/23/24 03:55 Creatinine 0.7 mg/dL (0.5-0.9) 12/23/24 03:55 GFR Calculation 85.1 mL/min (90-130) L 12/23/24 03:55 Treatment plan:: new consult Regimen:: New start vancomcyin for possible pneumonia. Maintenance dose of 500 mg q12h started yesterday 12/22. No load dose ordered. Renal function stable @0.7 mg/dL. Continue current dose 500 mg q12h.
[2024-12-23 08:08] LABS: Glucose Point of Care 131 mg/dL (70-110)
[2024-12-23] MEDS: sodium chloride 3% 100 ML in empty flexible container 1 EACH 200 ML IV (08:16)
[2024-12-23] MEDS: ATORVASTATIN 10 MG TABLET PO (08:21)
[2024-12-23] MEDS: carvedilol 6.25 mg Tablet PO ×2 (08:21→17:56)
[2024-12-23] MEDS: docusate sodium 100 mg Capsule PO ×2 (08:21→17:56)
[2024-12-23] MEDS: piperacillin-tazobactam 3.375 GM in sodium chloride 0.9% (plus) 50 ML IV ×2 (09:00→15:09)
[2024-12-23] MEDS: HYDROcodone-acetaminophen 5-325 mg Tablet 1 TAB PO ×2 (09:06→22:22)
[2024-12-23] MEDS: potassium chloride ER 20 mEq Tablet 40 MEQ PO (09:46)
[2024-12-23] MEDS: potassium phosphate (mMol PO4) 30 MMOL in sodium chloride 0.9% (100 ml) 100 ML 25 MMOL IV (09:49)
[2024-12-23 10:06] LABS: Sodium 122 mmol/L (136-145)
[2024-12-23 11:47] LABS: Glucose Point of Care 164 mg/dL (70-110)
--- NOTE | 2024-12-23 12:00 | P.PN_ITS ---
Subjective 2 Subjective: No acute events overnight. Patient laying comfortably in bed. Seen with family at bedside. Denies any nausea or vomiting. Vitals/I&O/Wt Last Vital Signs Temp 97.7 F 12/23/24 08:15 Pulse 81 12/23/24 08:16 Resp 18 12/23/24 08:16 BP 134/68 12/23/24 08:15 Pulse Ox 94 12/23/24 08:16 O2 Del Method Room Air 12/23/24 08:16 12/22/24 12/23/24 12/23/24 22:59 06:59 14:59 Intake Total 620 / 720 150 / 870 100 / 100 Output Total 250 / 250 Balance 620 / 720 -100 / 620 100 / 100 Weight last 48 hrs Weight 52.5 kg Weight 48.081 kg Weight 49.442 kg Physical Exam 2 Narrative: General: No acute distress, AO x3 HEENT: PERRLA, pupils bilaterally equal and reactive Chest: Normal vesicular breath sounds, no added sounds, equal good air entry bilaterally CVS: S1-S2 regular, no murmurs, no tachycardia, no gallops, no rubs Abdomen: Soft, nontender, no organomegaly, bowel sounds present Neuro: No focal deficits, no facial deformity, AO x3, power 5/5 in all limbs Data 12/23/24 03:55 12/23/24 09:41 Micro: Microbiology 12/22/24 16:45 Blood Culture - Preliminary Blood SPECIMEN COLLECTED 12/22/24 16:52 Blood Culture - Preliminary Blood SPECIMEN COLLECTED A&P Assessment and plan (1) Acute hyponatremia: Acute symptomatic hyponatremia. Most likely in setting of possible fluid overload versus in setting of malignancy. Appreciate urinalysis, urine lites. Appreciate recent A1c, lipid panel. TSH normal within last. Appreciate blood sugar levels. Appreciate urine lites with sodium of 14. Cannot rule out SIADH related to malignancy. Follow-up PTH related peptide, follow-up urine osmolality. Repeat urine lites. Appreciate serum osmolality of 256 today. Sodium level improving gradually to 121. Improvement of 5 mEq in last 18 hours. Repeat 100 cc of 3% normal saline. Continue to check sodium level every 6 hour. Depending on urine lites if sodium level less than 40 will plan for normal saline infusion at 45 cc/h for 1 bag while monitoring sodium level every 6 hours. Will repeat urine sodium and urine osmolality tomorrow morning. If sodium levels remain less than 40 then it is most likely hypovolueimic hyponatremia otherwise concerns for SIADH. (2) Breast mass, right: Seen on recent mammogram. Plan for biopsy today. High concerns for malignancy. Elevated CEA and CA125 levels. (3) Leukocytosis: White count trending down. Appreciate urinalysis, negative MRSA swab. Follow-up blood culture. Patient does have minimal pleural fluid. Underwent thoracentesis twice in last 2 admissions. For now cannot rule out empyema. Continue with empiric Zosyn. Discontinue vancomycin. (4) Nausea & vomiting: Most likely in setting of acute hyponatremia (5) Hypertension: Goal blood pressure less than 140/90 mmHg. Continue with home dose of Coreg and lisinopril. Uptitrate as per goal blood pressure. (6) Diabetes mellitus type 2, controlled: Recent A1c of 6.8. Takes glimepiride 4 mg twice daily at home. Hold OHA. Insulin sliding scale low-dose protocol. Insulin requirement in next 24 hours will uptitrate or add Lantus. Plan Full code Carb consistent diet Protonix for PUD prophylaxis Heparin for DVT prophylaxis. Hold for breast biopsy for now. PDMP PDMP Reviewed: Not Reviewed Attestations 2 Medical Necessity Statement*: Requires further hospitalization for management of acute symptomatic hyponatremia with concerns for SIADH in a patient with high concerns for malignancy. Diagnoses Acute hyponatremia E87.1 Breast mass, right N63.10 Leukocytosis D72.829 Nausea & vomiting R11.2 Hypertension I10 Diabetes mellitus type 2, controlled E11.9
[2024-12-23] MEDS: insulin lispro 100 unit/1 mL SUBCUT (12:22)
[2024-12-23] MEDS: ondansetron 2 mg/ML SDV 2 mL 4 MG IVP (12:23)
[2024-12-23 14:14] LABS: Potassium, Radom Urine 34 mmol/L
[2024-12-23 14:17] LABS: Urine Random Chloride 18 mmol/L; Urine Random Sodium 10 mmol/L
[2024-12-23] MEDS: pantoprazole 40 mg SDV IVP (15:05)
--- NOTE | 2024-12-23 15:15 | PC.NURSE ---
Received verbal orders to remove owens this morning. Owens removed
--- NOTE | 2024-12-23 16:22 | US_ITS ---
WS: [id number] ULTRASOUND-GUIDED RIGHT BREAST BIOPSY CLINICAL INFORMATION: Abnormal mammogram, high concerns for ca FINDINGS: The procedure including risks, benefits, and complications were discussed with the patient who agreed to proceed. Using sterile technique patient was prepped and draped in the usual sterile fashion. After 1% lidocaine utilizing real-time ultrasound guidance 2 14-gauge cores were obtained of the RIGHT breast lesion at the axillary tail. Patient demonstrated developing hematoma and venous bleeding after 2 samples. Prominent surrounding vascularity. No further samples were obtained and a pressure dressing was applied without further complication. No biopsy clip was placed. US/[place] [id number] IMPRESSION: 1. Uncomplicated ultrasound-guided RIGHT breast biopsy along the axillary tail . 2. The pathology demonstrates invasive mammary carcinoma of no specific type. Favor ductal. Nuclear grade 2. Focal areas of probable lymphovascular invasion. 3. Breast prognostic profile has been ordered and will be reported separately by pathology 4. Recommend breast surgery consultation. DENSITY: There are scattered areas of fibroglandular density. BI-RADS: 6 - Known Biopsy - Proven Malignancy. FOLLOW UP: Surgical Biopsy Recommended
[2024-12-23 16:32] LABS: Anion Gap 16.8 (5-19); Blood Urea Nitrogen 18 mg/dL (8-23); Calcium 8.1 mg/dL (8.5-10.5); Carbon Dioxide 27 mmol/L (22-29); Chloride 82 mmol/L (98-107); Glomerular Filtration Rate 85.1 mL/min (90-130); Glucose 126 mg/dL (65-115); Osmolality Calculated 257 mOsm/kg (285-295); Potassium 3.8 mmol/L (3.5-5.1); Sodium 122 mmol/L (136-145)
[2024-12-23 17:18] LABS: Glucose Point of Care 116 mg/dL (70-110)
[2024-12-23] MEDS: trazodone 50 mg Tablet 75 MG PO (20:46)
[2024-12-23 20:48] LABS: Glucose Point of Care 100 mg/dL (70-110)
[2024-12-23 23:00] LABS: Sodium 122 mmol/L (136-145)
[2024-12-24] VITALS (42 sets, daily range): BP systolic 97–123; BP diastolic 65–82; PULSE 65–96; RESP 8–27; TEMP 35.8–37.1; O2SAT 79–99
[2024-12-24] MEDS: efferdent effervescent 1 EACH DENTAL (00:03)
[2024-12-24] MEDS: piperacillin-tazobactam 3.375 GM in sodium chloride 0.9% (plus) 50 ML IV ×3 (00:03→15:52)
[2024-12-24] MEDS: morphine 4 mg/mL SDV 1 mL 2 MG IVP ×4 (00:54→20:49)
[2024-12-24 03:45] LABS: Alanine Aminotransferase 8 U/L (0-33); Albumin Level 2.8 g/dL (3.5-5.2); Alkaline Phosphatase 102 U/L (35-105); Anion Gap 18.9 (5-19); Aspartate Amino Transferase 13 U/L (0-32); Blood Urea Nitrogen 19 mg/dL (8-23); Calcium 8.4 mg/dL (8.5-10.5); Carbon Dioxide 25 mmol/L (22-29); Chloride 83 mmol/L (98-107); Globulin 2.2 g/dL (1.3-4.6); Glomerular Filtration Rate 85.1 mL/min (90-130); Glucose 130 mg/dL (65-115); Magnesium 2.1 mg/dL (1.7-2.3); Osmolality Calculated 258 mOsm/kg (285-295); Potassium 4.9 mmol/L (3.5-5.1); Sodium 122 mmol/L (136-145); Total Bilirubin 0.2 mg/dL (0.15-1.2)
[2024-12-24 03:46] LABS: Vancomycin Trough 6.9 ug/mL (10-15)
[2024-12-24 03:47] LABS: Basophils % 0.2 %; Eosinophils # 0.1 10^3/uL (0.0-0.8); Eosinophils % 0.6 %; Hematocrit 37.7 % (36-47); Lymphocytes # 0.7 10^3/uL (0.8-4.8); Lymphocytes % 4.3 %; Mean Corpuscular HGB Conc 33.7 g/dL (30-55); Mean Corpuscular Hemoglobin 29.3 pg (27-33); Mean Corpuscular Volume 87.1 fl (85-98); Monocytes # 1.1 10^3/uL (0.2-0.9); Neutrophils # 13.33 10^3/uL (1.8-7.7); Neutrophils % 87.3 %; Nucleated Red Blood Cells % 0 %; Platelet Count 511 10^3/cmm (157-399); Red Blood Count 4.33 10^6/uL (3.85-5.65); Red Cell Distribution Width 13.5 % (12.1-15.1); White Blood Count 15.25 10^3/uL (3.29-11.43)
[2024-12-24 08:05] LABS: Glucose Point of Care 99 mg/dL (70-110)
[2024-12-24] MEDS: ATORVASTATIN 10 MG TABLET PO (09:00)
[2024-12-24] MEDS: docusate sodium 100 mg Capsule PO ×2 (09:00→15:52)
[2024-12-24] MEDS: sodium chloride 0.9% 1,000 ML 75 ML IV (09:13)
[2024-12-24] MEDS: sodium chloride 3% 100 ML in empty flexible container 1 EACH 200 ML IV (10:28)
[2024-12-24 12:13] LABS: Glucose Point of Care 98 mg/dL (70-110)
--- NOTE | 2024-12-24 12:52 | P.PN_ITS ---
Subjective 2 Subjective: No acute events overnight. Seen with family at bedside. Patient sitting up comfortably in bed. Denies any nausea, vomiting. States she is having dyspepsia. Vitals/I&O/Wt Last Vital Signs Temp 96.4 F L 12/24/24 09:00 Pulse 88 12/24/24 09:45 Resp 19 H 12/24/24 10:33 BP 97/79 12/24/24 09:45 Pulse Ox 93 12/24/24 10:33 O2 Del Method Room Air 12/24/24 08:00 12/23/24 12/24/24 12/24/24 22:59 06:59 14:59 Intake Total 390 / 1770 530 / 2300 150 / 150 Output Total 600 / 600 Balance 390 / 1770 -70 / 1700 150 / 150 Weight last 48 hrs Weight 52 kg Weight 52 kg Weight 52.5 kg Weight 48.081 kg Physical Exam 2 Narrative: General: No acute distress, AO x3 HEENT: PERRLA, pupils bilaterally equal and reactive Chest: Normal vesicular breath sounds, no added sounds, equal good air entry bilaterally CVS: S1-S2 regular, no murmurs, no tachycardia, no gallops, no rubs Abdomen: Soft, nontender, no organomegaly, bowel sounds present Neuro: No focal deficits, no facial deformity, AO x3, power 5/5 in all limbs Data 12/24/24 03:05 12/24/24 03:05 Micro: Microbiology 12/22/24 16:45 Blood Culture - Preliminary Blood NEGATIVE TO DATE 12/22/24 16:52 Blood Culture - Preliminary Blood NEGATIVE TO DATE A&P Assessment and plan (1) Acute hyponatremia: Acute symptomatic hyponatremia. Most likely in setting of possible fluid overload versus in setting of malignancy. Appreciate urinalysis, urine lites. Appreciate recent A1c, lipid panel. TSH normal within last. Appreciate blood sugar levels. Appreciate urine lites with sodium of 14. Less likely though given concerns for malignancy cannot rule out SIADH related to malignancy. Follow-up PTH related peptide, follow-up urine osmolality. Appreciate repeat urine lites. Appreciate serum osmolality of 256 today. Sodium level stable at 122. Finished her 1 bag of normal saline yesterday afternoon. Restart on IV fluid at 75 cc/h. Repeat 100 cc of 3% normal saline. Continue check sodium level every 6 hour. Target improvement of 8 mEq of sodium level in next 24 hours. Depending on urine lites if sodium level less than 40 will plan for normal saline infusion at 45 cc/h for 1 bag while monitoring sodium level every 6 hours. Will repeat urine sodium and urine osmolality tomorrow morning. If sodium levels remain less than 40 then it is most likely hypovolueimic hyponatremia otherwise concerns for SIADH. (2) Breast mass, right: Seen on recent mammogram. Post breast biopsy on 12/23. Uneventful. High concerns for malignancy. Elevated CEA and CA125 levels. (3) Leukocytosis: White count trending down. Appreciate urinalysis, negative MRSA swab. Negative blood culture. Continue to follow. Patient does have minimal pleural fluid. Underwent thoracentesis twice in last 2 admissions. For now cannot rule out empyema. Continue with empiric Zosyn. Discontinue vancomycin. (4) Nausea & vomiting: Resolved. Most likely in setting of acute hyponatremia (5) Hypertension: Goal blood pressure less than 140/90 mmHg. Blood pressure slightly soft earlier today morning. Continue with home dose of Coreg. Decrease home dose of lisinopril to 10 mg daily. Uptitrate as per goal blood pressure. (6) Diabetes mellitus type 2, controlled: Recent A1c of 6.8. Takes glimepiride 4 mg twice daily at home. Hold OHA. Insulin sliding scale low-dose protocol. Insulin requirement in next 24 hours will uptitrate or add Lantus. Plan Full code Carb consistent diet Protonix for PUD prophylaxis Heparin for DVT prophylaxis. Hold for breast biopsy for now. PDMP PDMP Reviewed: Not Reviewed Attestations 2 Medical Necessity Statement*: Requires further hospitalization for management of acute symptomatic hyponatremia in a patient with high concerns for breast malignancy Diagnoses Acute hyponatremia E87.1 Breast mass, right N63.10 Leukocytosis D72.829 Nausea & vomiting R11.2 Hypertension I10 Diabetes mellitus type 2, controlled E11.9
[2024-12-24 14:32] LABS: Potassium, Radom Urine 83 mmol/L
[2024-12-24 14:34] LABS: Urine Random Chloride 12 mmol/L; Urine Random Sodium 18 mmol/L
--- NOTE | 2024-12-24 15:10 | PC.NURSE ---
Removed coban and pressure dressing from right breast. Puncture site without s/s of bleeding or hematoma formation. Bruising from coban placement observed to right axillary and right upper lateral back. Patient reports that this is very painful . Patient prepped for shower and taken there via wheelchair. Patient doing well.
[2024-12-24] MEDS: heparin 5,000 unit/mL INJ 1 mL 5000 UNIT SUBCUT (15:52)
[2024-12-24] MEDS: carvedilol 6.25 mg Tablet PO (15:52)
[2024-12-24] MEDS: pantoprazole 40 mg SDV IVP (15:52)
[2024-12-24 16:47] LABS: Sodium 124 mmol/L (136-145)
[2024-12-24 17:33] LABS: Glucose Point of Care 101 mg/dL (70-110)
[2024-12-24] MEDS: HYDROcodone-acetaminophen 5-325 mg Tablet 1 TAB PO (18:32)
--- NOTE | 2024-12-24 18:45 | PC.NURSE ---
Late note: Morning dose of paroxetine held. Patient states it was supposed to be discontinued. Previous nurse held medication. Nurse alerted Dr Cabral to medication not administered, but medication has not been discontinued for future doses.
[2024-12-24] MEDS: FUROsemide 10 mg/mL SDV 2mL 20 MG IVP (19:26)
[2024-12-24] MEDS: sodium chloride 3% 500 ML 100 ML (19:26)
[2024-12-24] MEDS: trazodone 50 mg Tablet 75 MG PO (20:48)
[2024-12-24 20:56] LABS: Glucose Point of Care 114 mg/dL (70-110)
[2024-12-24 22:15] LABS: Sodium 124 mmol/L (136-145)
[2024-12-25] VITALS (11 sets, daily range): BP systolic 109–128; BP diastolic 60–78; PULSE 89–92; RESP 12–26; TEMP 36.4–36.6; O2SAT 92–99
[2024-12-25] MEDS: piperacillin-tazobactam 3.375 GM in sodium chloride 0.9% (plus) 50 ML IV ×4 (00:19→23:38)
[2024-12-25] MEDS: morphine 4 mg/mL SDV 1 mL 2 MG IVP ×3 (01:17→18:16)
[2024-12-25] MEDS: heparin 5,000 unit/mL INJ 1 mL 5000 UNIT SUBCUT ×2 (02:16→15:31)
[2024-12-25 03:49] LABS: Basophils % 0.3 %; Eosinophils # 0.1 10^3/uL (0.0-0.8); Eosinophils % 0.4 %; Hematocrit 39.2 % (36-47); Lymphocytes # 0.6 10^3/uL (0.8-4.8); Lymphocytes % 3.9 %; Mean Corpuscular HGB Conc 32.9 g/dL (30-55); Mean Corpuscular Hemoglobin 29.5 pg (27-33); Mean Corpuscular Volume 89.5 fl (85-98); Mean Platelet Volume 8.7 fL (7.4-10.4); Monocytes % 6.2 %; Neutrophils # 13.96 10^3/uL (1.8-7.7); Neutrophils % 88.8 %; Nucleated Red Blood Cells % 0 %; Platelet Count 496 10^3/cmm (157-399); Red Blood Count 4.38 10^6/uL (3.85-5.65); White Blood Count 15.72 10^3/uL (3.29-11.43)
[2024-12-25 04:11] LABS: Alanine Aminotransferase 9 U/L (0-33); Albumin Level 3.2 g/dL (3.5-5.2); Alkaline Phosphatase 115 U/L (35-105); Anion Gap 20.1 (5-19); Aspartate Amino Transferase 13 U/L (0-32); Blood Urea Nitrogen 21 mg/dL (8-23); Calcium 8.9 mg/dL (8.5-10.5); Carbon Dioxide 24 mmol/L (22-29); Chloride 88 mmol/L (98-107); Globulin 2.3 g/dL (1.3-4.6); Glomerular Filtration Rate 72.9 mL/min (90-130); Glucose 130 mg/dL (65-115); Osmolality Calculated 269 mOsm/kg (285-295); Potassium 5.1 mmol/L (3.5-5.1); Sodium 127 mmol/L (136-145); Total Bilirubin 0.2 mg/dL (0.15-1.2); Total Protein 5.5 g/dL (6.6-8.7)
[2024-12-25] MEDS: lisinopril 10 mg Tablet PO (05:28)
[2024-12-25 06:33] LABS: Glucose Point of Care 120 mg/dL (70-110)
[2024-12-25 07:59] LABS: Glucose Point of Care 125 mg/dL (70-110)
[2024-12-25] MEDS: docusate sodium 100 mg Capsule PO ×2 (08:09→18:05)
[2024-12-25] MEDS: ATORVASTATIN 10 MG TABLET PO (08:09)
--- NOTE | 2024-12-25 08:42 | PC.NURSE ---
Provider updated that Ms Gaviria, she refused her Paxil this morning. She states that she stopped that 2 weeks ago. Provider said ok and [facility] med.
[2024-12-25 09:57] LABS: Sodium 124 mmol/L (136-145)
--- NOTE | 2024-12-25 10:23 | P.DS_ITS ---
Discharge Providers Date of Admission: 12/22/24 14:35 Date of Discharge: December 25, 2024 Attending Provider at Admission: Arcadio Cabral MD Attending Provider at Discharge: Arcadio Cabral MD Primary Care Provider: Jose Alberto Singleton MD Diagnoses at Discharge Discharge Diagnosis (1) Acute hyponatremia: Status: Acute (2) Breast mass, right: Status: Acute (3) Leukocytosis: Status: Acute (4) Nausea & vomiting: Status: Acute (5) Hypertension: Status: Acute (6) Diabetes mellitus type 2, controlled: Status: Acute Reason for Visit Reason for Visit: SOB, Swelling, pain Dr Singleton sent Physical Exam Narrative: General: No acute distress, AO x3 HEENT: PERRLA, pupils bilaterally equal and reactive Chest: Normal vesicular breath sounds, no added sounds, equal good air entry bilaterally CVS: S1-S2 regular, no murmurs, no tachycardia, no gallops, no rubs Abdomen: Soft, nontender, no organomegaly, bowel sounds present Neuro: No focal deficits, no facial deformity, AO x3, power 5/5 in all limbs Discharge Data Studies Completed and Pending Completed Studies During Hospitalization Category Date Time Status XR chest 1V portable [id number] Stat Exams 12/22/24 11:59 Completed Pending at discharge Category Date Time Status Blood Culture Stat Lab 12/22/24 16:45 Results Osmolality Urine Stat Lab 12/22/24 15:25 Received Osmolality Urine Stat Lab 12/24/24 14:04 Received PTH Related [PTH Related Peptide (Protein)] Stat Lab 12/22/24 16:52 Received Sodium Q6H Lab 12/25/24 15:27 Ordered Sodium Q6H Lab 12/25/24 21:27 Ordered Sodium Q6H Lab 12/26/24 03:27 Ordered Sputum Culture and Gram Stain Stat Lab 12/22/24 15:26 Uncollected Pathology: Surgical [PTH] Routine Pth 12/23/24 14:41 [place] [id number] Routine Ultrasound 12/23/24 16:22 Taken Radiology Impressions Chest X-Ray 12/22/24 11:59 Impression: 1. Development of moderate bilateral pleural effusions. 2. Bibasilar opacifications. 3. Atherosclerosis. Laboratory Results WBC 15.72 10^3/uL (3.29-11.43) H 12/25/24 03:34 RBC 4.38 10^6/uL (3.85-5.65) 12/25/24 03:34 Hgb 12.90 g/dL (11.27-16.99) 12/25/24 03:34 Hct 39.2 % (36-47) 12/25/24 03:34 MCV 89.5 fl (85-98) 12/25/24 03:34 MCH 29.5 pg (27-33) 12/25/24 03:34 MCHC 32.9 g/dL (30-55) 12/25/24 03:34 RDW 14.0 % (12.1-15.1) 12/25/24 03:34 Plt Count 496 10^3/cmm (157-399) H 12/25/24 03:34 MPV 8.7 fL (7.4-10.4) 12/25/24 03:34 Neut % (Auto) 88.8 % 12/25/24 03:34 Lymph % (Auto) 3.9 % 12/25/24 03:34 [place] % (Auto) 6.2 % 12/25/24 03:34 Eos % (Auto) 0.4 % 12/25/24 03:34 Baso % (Auto) 0.3 % 12/25/24 03:34 Neut # (Auto) 13.96 10^3/uL (1.8-7.7) H 12/25/24 03:34 Lymph # (Auto) 0.6 10^3/uL (0.8-4.8) L 12/25/24 03:34 [place] # (Auto) 1.0 10^3/uL (0.2-0.9) H 12/25/24 03:34 Eos # (Auto) 0.1 10^3/uL (0.0-0.8) 12/25/24 03:34 Baso # (Auto) 0.0 10^3/uL (0.0-0.1) 12/25/24 03:34 Nucleated RBC % (auto) 0 % 12/25/24 03:34 Nucleated RBCs # 0.0 /100WBC 12/25/24 03:34 Sodium 124 mmol/L (136-145) L 12/25/24 09:22 Potassium 5.1 mmol/L (3.5-5.1) 12/25/24 03:34 Chloride 88 mmol/L (98-107) L 12/25/24 03:34 Carbon Dioxide 24 mmol/L (22-29) 12/25/24 03:34 Anion Gap 20.1 (5-19) H 12/25/24 03:34 BUN 21 mg/dL (8-23) 12/25/24 03:34 Creatinine 0.8 mg/dL (0.5-0.9) 12/25/24 03:34 GFR Calculation 72.9 mL/min (90-130) L 12/25/24 03:34 Glucose 130 mg/dL (65-115) H 12/25/24 03:34 POC Glucose 125 mg/dL (70-110) H 12/25/24 07:32 Calculated Osmolality 269 mOsm/kg (285-295) L 12/25/24 03:34 Lactic Acid 1.3 mmol/L (0.5-2.2) 12/22/24 14:11 Calcium 8.9 mg/dL (8.5-10.5) 12/25/24 03:34 Phosphorus 4.0 mg/dL (2.5-4.5) 12/25/24 03:34 Magnesium 2.0 mg/dL (1.7-2.3) 12/25/24 03:34 Iron 46 ug/dL (37-145) 12/22/24 12:16 TIBC 247 mcg/dl 12/22/24 12:16 % Saturation 18.6 % (20-50) L 12/22/24 12:16 Unsat Iron Binding 201 ug/dL (112-347) 12/22/24 12:16 Total Bilirubin 0.2 mg/dL (0.15-1.2) 12/25/24 03:34 AST 13 U/L (0-32) 12/25/24 03:34 ALT 9 U/L (0-33) 12/25/24 03:34 Alkaline Phosphatase 115 U/L (35-105) H 12/25/24 03:34 Troponin T Baseline 24 ng/L (0-10) H 12/22/24 12:16 Troponin T 120 Minute 21.36 ng/L (0-10) H 12/22/24 14:11 Delta Troponin T -2.64 ABS# (0-10) L 12/22/24 14:11 Troponin T Hi Sens 6Hr 21.85 ng/L (0-10) H 12/22/24 18:12 Troponin T Hi Sens 6Hr Delta -2.15 ng/L (0-12) L 12/22/24 18:12 C-Reactive Protein 32.2 mg/L (0.0-4.9) H 12/22/24 12:16 NT-Pro-B Natriuret Pep 436 pg/mL (0-125) H 12/22/24 12:16 Total Protein 5.5 g/dL (6.6-8.7) L 12/25/24 03:34 Albumin 3.2 g/dL (3.5-5.2) L 12/25/24 03:34 Globulin 2.3 g/dL (1.3-4.6) 12/25/24 03:34 Carcinoembryonic Ag 28.4 ng/mL (0.0-4.7) H 12/22/24 16:52 CA 125 Antigen > 23367.0 U/mL (0-35) H 12/22/24 16:52 Ki-67 Interpretation Cancelled 12/22/24 16:22 Vitamin B12 Cancelled 12/22/24 16:52 Folate 8.7 ng/mL (4.8-37.3) 12/23/24 03:55 Procalcitonin 1.30 ng/mL (0-0.5) H 12/23/24 03:55 Urine Color Yellow (Yellow) 12/22/24 15:25 Urine Appearance Clear (CLEAR) 12/22/24 15:25 Urine pH 6.5 (5-7) 12/22/24 15:25 Ur Specific [place] 1.016 (1.005-1.030) 12/22/24 15:25 Urine Protein Trace (Negative) A 12/22/24 15:25 Urine Glucose (UA) 1+ (Normal) H 12/22/24 15:25 Urine Ketones 2+ (Negative) H 12/22/24 15:25 Urine Blood Negative (Negative) 12/22/24 15:25 Urine Nitrate Negative (Negative) 12/22/24 15: Urine Bilirubin Negative (Negative) 12/22/24 15:25 Urine Urobilinogen 0.2 mg/dL (Negative) 12/22/24 15:25 Ur Leukocyte Esterase Negative (Negative) 12/22/24 15:25 Urine RBC 0-2 /hpf (0-2) 12/22/24 15:25 Urine WBC 0-5 /hpf (0-5) 12/22/24 15:25 Ur Squamous Epith Cells 0-5 /hpf (0-5) 12/22/24 15:25 Amorphous Sediment Not Reportable 12/22/24 15:25 Urine Bacteria None seen /hpf (NONE) 12/22/24 15:25 Hyaline Casts 0.81 /lpf 12/22/24 15:25 Ur Random Sodium 18 mmol/L 12/24/24 14:04 Ur Random Potassium 83 mmol/L 12/24/24 14:04 Ur Random Chloride 12 mmol/L 12/24/24 14:04 Nasal MRSA (PCR) Not detected (Not Detecte) 12/22/24 16:15 Vancomycin Trough 6.9 ug/mL (10-15) L 12/24/24 03:05 Vitals Last Vital Signs Temp 97.5 F L 12/25/24 07:25 Pulse 92 12/25/24 07:25 Resp 12 12/25/24 08:11 BP 113/69 12/25/24 07:25 Pulse Ox 96 12/25/24 08:35 O2 Del Method Room Air 12/25/24 08:35 Discharge Plan Discharge Patient Disposition: Home Condition: Stable Prescriptions: New ondansetron 4 mg tablet,disintegrating 4 mg PO Q8H PRN (Reason: nausea and vomiting) 4 Days Qty: 14 0RF sodium chloride 1,000 mg tablet,soluble 1,000 mg PO BID Qty: 20 0RF Continued pravastatin 40 mg tablet 40 mg PO DAILY omeprazole 40 mg capsule,delayed release(DR/EC) 40 mg PO DAILY PRN (Reason: Acid Reflux) celecoxib 100 mg capsule 100 mg PO BID PRN (Reason: Pain) dapagliflozin propanediol [Farxiga] 5 mg tablet 5 mg PO DAILY Qty: 30 2RF cyclobenzaprine 10 mg tablet 10 mg PO TID PRN (Reason: muscle cramps) trazodone 150 mg tablet 75 mg PO BEDTIME docusate sodium [Colace] 100 mg capsule 100 mg PO BID PRN (Reason: Constipation) ondansetron HCl 4 mg tablet 4 mg PO .Q4-6H PRN (Reason: Nausea And Vomiting) tramadol 50 mg tablet 50 mg PO Q8H PRN (Reason: Pain) glimepiride 4 mg tablet 4 mg PO BID Qty: 7 0RF Rx Instructions: 4 mg in morning and 2 mg in evening Changed lisinopril 20 mg tablet 10 mg PO QAM Qty: 5 0RF Discontinued carvedilol 12.5 mg tablet 6.25 mg PO BID paroxetine HCl 20 mg tablet 20 mg PO DAILY furosemide 20 mg tablet 20 mg PO DAILY Discharge Orders: Discharge Order (Routine); Ordered 12/25/24 Ordered By: Arcadio Cabral Referrals: Jose Alberto Singleton MD [Primary Care Provider, [facility]] - 4-7 days Discharge Diet: Regular Discharge Activity: Resume usual activity and Increase activity as tolerated Patient Instructions: Opioid Safety Activity Restrictions/Additional Instructions: Do not take Lasix anymore. You can continue taking Farxiga though that can also cause sodium levels to go down. Take salt tablets morning and evening for next 10 days. Follow-up with your primary care provider within next 3 to 4 days for a repeat BMP. Follow-up with a primary care provider within next 1 week for results of your breast biopsy. Coding Level of Care Code Acute Code for g Fwd Diagnoses Acute hyponatremia E87.1 Breast mass, right N63.10 Leukocytosis D72.829 Nausea & vomiting R11.2 Hypertension I10 Diabetes mellitus type 2, controlled E11.9
[2024-12-25] MEDS: sodium chloride 3% 100 ML in empty flexible container 1 EACH 200 ML IV (11:27)
[2024-12-25 11:56] LABS: Glucose Point of Care 118 mg/dL (70-110)
[2024-12-25] MEDS: FUROsemide 20 mg Tablet PO (12:09)
--- NOTE | 2024-12-25 12:31 | P.PN_ITS ---
Subjective 2 Subjective: No events overnight. Today morning patient seen sitting up in chair. Complaining of swelling in her legs. No more vomiting. Patient was ready to be discharged but family requested patient to remain in hospital for longer for physical therapy and possible discharge with home health. They state for now they do not think the father would be able to take care of the patient at home by himself. Vitals/I&O/Wt Last Vital Signs Temp 97.6 F 12/25/24 11:34 Pulse 89 12/25/24 11:34 Resp 18 12/25/24 11:34 BP 109/72 12/25/24 11:34 Pulse Ox 95 12/25/24 11:34 O2 Del Method Room Air 12/25/24 11:34 12/24/24 12/25/24 12/25/24 22:59 06:59 14:59 Intake Total 951.250 / 1221.250 670 / 1891.250 340 / 340 Output Total 280 / 280 50 / 330 Balance 671.250 / 941.250 620 / 1561.250 340 / 340 Weight last 48 hrs Weight 40.234 kg Weight 40.279 kg Weight 52 kg Weight 52 kg Physical Exam 2 Narrative: General: No acute distress, AO x3 HEENT: PERRLA, pupils bilaterally equal and reactive Chest: Normal vesicular breath sounds, no added sounds, equal good air entry bilaterally CVS: S1-S2 regular, no murmurs, no tachycardia, no gallops, no rubs Abdomen: Soft, nontender, no organomegaly, bowel sounds present Neuro: No focal deficits, no facial deformity, AO x3, power 5/5 in all limbs Extremity: 2+ pitting edema bilateral lower limbs Data 12/25/24 03:34 12/25/24 09:22 A&P Assessment and plan (1) Acute hyponatremia: Acute symptomatic hyponatremia. Most likely in setting of possible fluid overload versus in setting of malignancy. Appreciate urinalysis, urine lites. Appreciate recent A1c, lipid panel. TSH normal within last. Appreciate blood sugar levels. Appreciate urine lites with sodium of 14. Less likely though given concerns for malignancy cannot rule out SIADH related to malignancy. Follow-up PTH related peptide, follow-up urine osmolality. Appreciate repeat urine lites. Appreciate serum osmolality of 256 today. Sodium level stable at 122. Finished her 1 bag of normal saline yesterday afternoon. Restart on IV fluid at 75 cc/h. Repeat 100 cc of 3% normal saline. Continue check sodium level every 6 hour. Target improvement of 8 mEq of sodium level in next 24 hours. Depending on urine lites if sodium level less than 40 will plan for normal saline infusion at 45 cc/h for 1 bag while monitoring sodium level every 6 hours. Will repeat urine sodium and urine osmolality tomorrow morning. If sodium levels remain less than 40 then it is most likely hypovolueimic hyponatremia otherwise concerns for SIADH. (2) Breast mass, right: Seen on recent mammogram. Post breast biopsy on 12/23. Uneventful. High concerns for malignancy. Elevated CEA and CA125 levels. (3) Leukocytosis: White count trending down. Appreciate urinalysis, negative MRSA swab. Negative blood culture. Continue to follow. Patient does have minimal pleural fluid. Underwent thoracentesis twice in last 2 admissions. For now cannot rule out empyema. Continue with empiric Zosyn. Day 4 of treatment today. (4) Nausea & vomiting: Resolved. Most likely in setting of acute hyponatremia (5) Hypertension: Goal blood pressure less than 140/90 mmHg. Blood pressure slightly soft earlier today morning. Continue with home dose of Coreg. Decrease home dose of lisinopril to 10 mg daily. Uptitrate as per goal blood pressure. (6) Diabetes mellitus type 2, controlled: Recent A1c of 6.8. Takes glimepiride 4 mg twice daily at home. Hold OHA. Insulin sliding scale low-dose protocol. Insulin requirement in next 24 hours will uptitrate or add Lantus. Plan Full code Carb consistent diet Protonix for PUD prophylaxis Heparin for DVT prophylaxis. Plan for the day: Oral Lasix 20 mg one-time. Strict input output charting. Continue to monitor sodium level every 6 hourly. 3% normal saline 100 cc one-time. Will repeat dose depending on sodium levels. Patient could have been discharged on oral salt tablets while holding her home dose of Lasix with advised to follow-up with outpatient PCP within next 2 to 3 days for repeat sodium level though family is concerned that elderly will not be able to take care of the patient by himself at home and patient needs to get stronger. They are concerned for patient's oxygen levels on ambulation. Motivated patient to get out of bed and walk around. Oxygen levels have remained more than 92 % on rest. Can plan for physical therapy. Home O2 evaluation prior to discharge. Continue with Zosyn for now. Can finish a 5-day course. Goal blood pressure less than 140/90 mmHg. Continue with decreased dose of lisinopril 10 mg daily. Holding off on Coreg. PDMP PDMP Reviewed: Not Reviewed Attestations 2 Medical Necessity Statement*: Requires further hospitalization for management of deconditioning, acute symptomatic hyponatremia in a patient with concerns for breast malignancy Diagnoses Acute hyponatremia E87.1 Breast mass, right N63.10 Leukocytosis D72.829 Nausea & vomiting R11.2 Hypertension I10 Diabetes mellitus type 2, controlled E11.9
[2024-12-25] MEDS: pantoprazole 40 mg SDV IVP (15:31)
[2024-12-25 15:34] LABS: Sodium 125 mmol/L (136-145)
[2024-12-25 16:52] LABS: Glucose Point of Care 98 mg/dL (70-110)
--- NOTE | 2024-12-25 17:31 | PC.NURSE ---
Patient ambulated in the hallway 350 feet this afternoon. Vitals remained stable.
[2024-12-25] MEDS: trazodone 50 mg Tablet 75 MG PO (21:20)
[2024-12-25 21:46] LABS: Sodium 127 mmol/L (136-145)
[2024-12-25] MEDS: HYDROcodone-acetaminophen 5-325 mg Tablet 1 TAB PO (22:46)
[2024-12-25 23:14] LABS: Glucose Point of Care 98 mg/dL (70-110)
[2024-12-26] VITALS (8 sets, daily range): BP systolic 113–146; BP diastolic 65–99; PULSE 0–103; RESP 11–24; TEMP 36.5–37.6; O2SAT 97–100
[2024-12-26 03:37] LABS: Basophils % 0.3 %; Eosinophils % 0.2 %; Hematocrit 35.6 % (36-47); Lymphocytes # 0.9 10^3/uL (0.8-4.8); Lymphocytes % 6.4 %; Mean Corpuscular HGB Conc 32.6 g/dL (30-55); Mean Corpuscular Hemoglobin 29.5 pg (27-33); Mean Corpuscular Volume 90.6 fl (85-98); Mean Platelet Volume 8.5 fL (7.4-10.4); Monocytes # 1.1 10^3/uL (0.2-0.9); Monocytes % 7.8 %; Neutrophils # 11.98 10^3/uL (1.8-7.7); Neutrophils % 84.7 %; Nucleated Red Blood Cells % 0 %; Platelet Count 464 10^3/cmm (157-399); Red Blood Count 3.93 10^6/uL (3.85-5.65); Red Cell Distribution Width 14.1 % (12.1-15.1); White Blood Count 14.13 10^3/uL (3.29-11.43)
[2024-12-26 03:52] LABS: Alanine Aminotransferase 7 U/L (0-33); Albumin Level 2.8 g/dL (3.5-5.2); Alkaline Phosphatase 98 U/L (35-105); Anion Gap 21.4 (5-19); Aspartate Amino Transferase 13 U/L (0-32); Blood Urea Nitrogen 23 mg/dL (8-23); Calcium 8.5 mg/dL (8.5-10.5); Carbon Dioxide 22 mmol/L (22-29); Chloride 89 mmol/L (98-107); Creatinine Clr Calc Pharmacy 41.6931; Globulin 2.3 g/dL (1.3-4.6); Glomerular Filtration Rate 63.7 mL/min (90-130); Glucose 123 mg/dL (65-115); Osmolality Calculated 271 mOsm/kg (285-295); Potassium 4.4 mmol/L (3.5-5.1); Sodium 128 mmol/L (136-145); Total Bilirubin 0.2 mg/dL (0.15-1.2); Total Protein 5.1 g/dL (6.6-8.7)
[2024-12-26] MEDS: heparin 5,000 unit/mL INJ 1 mL 5000 UNIT SUBCUT ×2 (04:12→15:06)
[2024-12-26] MEDS: lisinopril 10 mg Tablet PO (05:11)
[2024-12-26] MEDS: HYDROcodone-acetaminophen 5-325 mg Tablet 1 TAB PO ×2 (05:11→21:57)
[2024-12-26 07:25] LABS: Glucose Point of Care 90 mg/dL (70-110)
[2024-12-26] MEDS: albumin 25 G/100 ML BAG 60 G IV ×3 (09:10→20:01)
[2024-12-26] MEDS: docusate sodium 100 mg Capsule PO (09:10)
[2024-12-26] MEDS: ATORVASTATIN 10 MG TABLET PO (09:10)
--- NOTE | 2024-12-26 10:13 | PM.PN ---
Subjective Subjective: The patient feels okay awaiting to work with PT The reason she came into the hospital was for lower extremity edema and this is not improved since admission. Patient sees Dr. Dooley at the [facility] pulmonary. They are aware that a workup for cancer is underway. She was supposed to have a PET scan at [facility] however she missed that appointment. I explained that technically she should have a cancer diagnosis before PET scan and the oncologist would order that. Vitals/I&O/Wt Last Vital Signs Temp 97.8 F 12/26/24 08:00 Pulse 86 12/26/24 08:00 Resp 12 12/26/24 08:00 BP 116/65 12/26/24 08:00 Pulse Ox 97 12/26/24 08:00 O2 Del Method Room Air 12/26/24 08:00 12/25/24 12/26/24 12/26/24 22:59 06:59 14:59 Intake Total 410 / 1160 50 / 1210 Output Total 350 / 350 100 / 450 200 / 200 Balance 60 / 810 -50 / 760 -200 / -200 Weight last 48 hrs Weight 40.234 kg Weight 40.279 kg Physical Exam Narrative: General:thin frail No acute distress, AO x3 HEENT: PERRLA, pupils bilaterally equal and reactive Chest: clear b/l CVS: S1-S2 regular, no murmurs, no tachycardia, no gallops, no rubs Abdomen: Soft, nontender, no organomegaly, bowel sounds present Neuro: No focal deficits, no facial deformity, AO x3, power 5/5 in all limbs Extremity:4+ pitting edema up to groin Data 12/26/24 03:27 12/26/24 03:27 A&P Assessment and plan (1) Acute hyponatremia: improving. most likely due to malignancy. NOT SIADH (2) Breast mass, right: Seen on recent mammogram. Post breast biopsy on 12/23. High concerns for malignancy. >15,000 on CA 125 Discussed with pt and likelihoood of cancer. unknown etioology. await breast bx. if neg check uterus/ovaries with vag US (3) Leukocytosis: White count trending down. w/u negative. exudative pl effusions most likely malignancy Continue with empiric Zosyn. (4) Nausea & vomiting: Resolved. Most likely in setting of acute hyponatremia (5) Hypertension: Goal blood pressure less than 140/90 mmHg. Blood pressure slightly soft earlier today morning. Continue with home dose of Coreg. Decrease home dose of lisinopril to 10 mg daily. Uptitrate as per goal blood pressure. (6) Diabetes mellitus type 2, controlled: Recent A1c of 6.8. Takes glimepiride 4 mg twice daily at home. Hold OHA. Insulin sliding scale low-dose protocol. Insulin requirement in next 24 hours will uptitrate or add Lantus. (7) Anasarca: low protein due to poor nutrition. albumin q6 h with lasix bid after albuminn given Plan albumin and lasix. goal to improve edema. PT/OT change to oral abx to complete course for possible infection. Continue with Zosyn for now. Can finish a 5-day course. careful with BP., will monitor PDMP PDMP Reviewed: Not Reviewed Attestations Medical Necessity Statement*: Requires further hospitalization for management of flluid overload, with low protein, deconditioning, acute symptomatic hyponatremia in a patient with concerns for breast malignancy Coding Level of Care Code Acute Code for Chg Fwd Diagnoses Acute hyponatremia E87.1 Breast mass, right N63.10 Leukocytosis D72.829 Nausea & vomiting R11.2 Hypertension I10 Diabetes mellitus type 2, controlled E11.9 Anasarca R60.1
[2024-12-26] MEDS: FUROsemide 10 mg/mL SDV 4mL 40 MG IVP ×2 (10:55→17:13)
[2024-12-26] MEDS: piperacillin-tazobactam 3.375 GM in sodium chloride 0.9% (plus) 50 ML IV (10:55)
[2024-12-26 12:46] LABS: Glucose Point of Care 115 mg/dL (70-110)
[2024-12-26 13:00] LABS: Osmolality Urine 566 mOsm/kg (50-1200)
[2024-12-26 14:04] LABS: Osmolality Urine 435 mOsm/kg (50-1200)
[2024-12-26] MEDS: pantoprazole 40 mg SDV IVP (15:06)
--- NOTE | 2024-12-26 16:58 | PC.NURSE ---
Provider asked nursing staff to stop IV Zosyn and order Omnicef 300 mg PO BID. Order placed.
[2024-12-26] MEDS: cefdinir 300 MG CAPSULE PO (17:13)
[2024-12-26 17:55] LABS: Glucose Point of Care 117 mg/dL (70-110)
--- NOTE | 2024-12-26 18:49 | PC.NURSE ---
Pt keeping tray
[2024-12-26] MEDS: potassium chloride oral liq 20 mEq/15 mL UDC PO (20:02)
[2024-12-26] MEDS: trazodone 50 mg Tablet 75 MG PO (20:02)
[2024-12-26 20:45] LABS: Glucose Point of Care 112 mg/dL (70-110)
[2024-12-27] VITALS (7 sets, daily range): BP systolic 127–165; BP diastolic 77–91; PULSE 88–95; RESP 16–30; TEMP 36.7–37.1; O2SAT 95–98
[2024-12-27] MEDS: albumin 25 G/100 ML BAG 60 G IV ×4 (03:53→21:09)
[2024-12-27] MEDS: heparin 5,000 unit/mL INJ 1 mL 5000 UNIT SUBCUT ×2 (03:56→17:22)
[2024-12-27 04:52] LABS: Basophils % 0.3 %; Eosinophils # 0.1 10^3/uL (0.0-0.8); Eosinophils % 0.6 %; Hematocrit 30.4 % (36-47); Lymphocytes # 0.7 10^3/uL (0.8-4.8); Lymphocytes % 5.9 %; Mean Corpuscular HGB Conc 32.9 g/dL (30-55); Mean Corpuscular Hemoglobin 29.3 pg (27-33); Mean Corpuscular Volume 89.1 fl (85-98); Mean Platelet Volume 8.4 fL (7.4-10.4); Monocytes % 8.5 %; Neutrophils # 10.05 10^3/uL (1.8-7.7); Neutrophils % 84.3 %; Nucleated Red Blood Cells % 0 %; Platelet Count 412 10^3/cmm (157-399); Red Blood Count 3.41 10^6/uL (3.85-5.65); White Blood Count 11.91 10^3/uL (3.29-11.43)
[2024-12-27 05:10] LABS: Anion Gap 20.6 (5-19); Blood Urea Nitrogen 18 mg/dL (8-23); Calcium 9.1 mg/dL (8.5-10.5); Carbon Dioxide 25 mmol/L (22-29); Chloride 89 mmol/L (98-107); Glomerular Filtration Rate 72.9 mL/min (90-130); Glucose 113 mg/dL (65-115); Osmolality Calculated 275 mOsm/kg (285-295); Potassium 3.6 mmol/L (3.5-5.1); Sodium 131 mmol/L (136-145)
[2024-12-27] MEDS: lisinopril 10 mg Tablet PO (05:29)
[2024-12-27 06:30] LABS: Glucose Point of Care 102 mg/dL (70-110)
[2024-12-27] MEDS: carvedilol 6.25 mg Tablet 3.125 MG PO ×2 (08:06→17:22)
[2024-12-27] MEDS: ATORVASTATIN 10 MG TABLET PO (08:06)
[2024-12-27] MEDS: cefdinir 300 MG CAPSULE PO ×2 (08:06→17:21)
[2024-12-27] MEDS: potassium chloride oral liq 20 mEq/15 mL UDC 40 MEQ PO ×2 (08:06→17:22)
--- NOTE | 2024-12-27 10:08 | PC.NURSE ---
Provider asked nursing to change lasix from IVP to PO.
[2024-12-27] MEDS: FUROsemide 40 mg Tablet PO (10:19)
--- NOTE | 2024-12-27 12:22 | PC.NURSE ---
Provider updated on patient's output the last 2 hours. Due to this only being 100 ml's, a verbal order for lasix 40mg IVP BID is given.
--- NOTE | 2024-12-27 12:30 | PM.PN ---
Subjective Subjective: Patient down to 2 L with the albumin and IV Lasix at 40 mg twice daily. Patient and family concerned with changing physicians. Attempted oral Lasix today without good results. Recommend continued hospitalization for IV diuretics due to the severity of fluid overload Vitals/I&O/Wt Last Vital Signs Temp 98.6 F 12/27/24 06:59 Pulse 90 12/27/24 07:53 Resp 16 12/27/24 07:53 BP 147/83 12/27/24 06:59 Pulse Ox 98 12/27/24 07:53 O2 Del Method Room Air 12/27/24 07:53 12/26/24 12/27/24 12/27/24 22:59 06:59 14:59 Intake Total 250 / 350 100 / 450 220 / 220 Output Total 1700 / 2300 800 / 3100 100 / 100 Balance -1450 / -1950 -700 / -2650 120 / 120 Weight last 48 hrs Weight 39.463 kg Physical Exam Narrative: General:thin frail No acute distress, AO x3 HEENT: PERRLA, pupils bilaterally equal and reactive Chest: clear b/l CVS: S1-S2 regular, no murmurs, no tachycardia, no gallops, no rubs Abdomen: Soft, nontender, no organomegaly, bowel sounds present Neuro: No focal deficits, no facial deformity, AO x3, power 5/5 in all limbs Extremity:4+ pitting edema up to groin; actually more pitting today but that is improved; it is less tight Data 12/27/24 04:39 12/27/24 04:39 A&P Assessment and plan (1) Acute hyponatremia: improving. most likely due to malignancy. 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 Tissue sent for receptor sensitivities >15,000 on CA 125 (3) Leukocytosis: White count continues to trend down. Almost normal today w/u negative. exudative pl effusions most likely malignancy Changed to oral antibiotics yesterday (4) Nausea & vomiting: Resolved. (5) Hypertension: Blood pressures improved with albumin and Lasix started yesterday Continue with home dose of Coreg. Decrease home dose of lisinopril to 10 mg daily. Will follow (6) Diabetes mellitus type 2, controlled: Recent A1c of 6.8. Takes glimepiride 4 mg twice daily at home. Was on low-dose sliding scale insulin given only 4 units total since hospitalized. Patient hardly taking any p.o. Stop Accu-Cheks stop insulin (7) Anasarca: low protein due to poor nutrition. albumin q6 h with lasix bid after albuminn given Plan Continue albumin and lasix. goal to improve edema. PT/OT Dietary consult to increase nutrition. Advised to maintain in the hospital to obtain further diuresis PDMP PDMP Reviewed: Not Reviewed Attestations Medical Necessity Statement*: Requires further hospitalization for management of flluid overload, with low protein, deconditioning, acute symptomatic hyponatremia in a patient with concerns for breast malignancy Coding Level of Care Code Acute Code for [facility] Diagnoses Acute hyponatremia E87.1 Breast mass, right N63.10 Leukocytosis D72.829 Nausea & vomiting R11.2 Hypertension I10 Diabetes mellitus type 2, controlled E11.9 Anasarca R60.1
[2024-12-27] MEDS: FUROsemide 10 mg/mL SDV 4mL 40 MG IVP (12:34)
[2024-12-27] MEDS: HYDROcodone-acetaminophen 5-325 mg Tablet 1 TAB PO (14:09)
--- NOTE | 2024-12-27 18:00 | PC.NURSE ---
Patient has refused to wear her telemetry this afternoon, patient states it is too heavy .
[2024-12-27] MEDS: trazodone 50 mg Tablet 75 MG PO (21:11)
[2024-12-28] VITALS (11 sets, daily range): BP systolic 136–167; BP diastolic 80–105; PULSE 86–103; RESP 18–22; TEMP 36.6–37; O2SAT 93–100
[2024-12-28] MEDS: FUROsemide 10 mg/mL SDV 4mL 40 MG IVP ×2 (00:09→12:34)
[2024-12-28] MEDS: acetaminophen 325 mg Tablet 650 MG PO (02:42)
[2024-12-28] MEDS: albumin 25 G/100 ML BAG 60 G IV ×2 (02:43→10:12)
[2024-12-28] MEDS: heparin 5,000 unit/mL INJ 1 mL 5000 UNIT SUBCUT (02:43)
--- NOTE | 2024-12-28 03:35 | PC.NURSE ---
Patient called nurses stations saying she fell. Per patient she had walked over to the thermostat to adjust it and didn't have enough slack on her IV. She then said she slowly fell on her butt to the ground. She then made it to the chair and called for help. No new wounds noted, vitals taken please see vital section. Patient moved from 101 to 112-2, patient also educated call for help when needing to get out of the chair or use the bathroom. Fall risk sign place and fall socks on. MD and housekeeping director notified.
[2024-12-28 04:36] LABS: Basophils % 0.1 %; Eosinophils % 0.1 %; Hematocrit 33.5 % (36-47); Lymphocytes # 0.6 10^3/uL (0.8-4.8); Lymphocytes % 4.2 %; Mean Corpuscular HGB Conc 33.7 g/dL (30-55); Mean Corpuscular Volume 85.9 fl (85-98); Mean Platelet Volume 8.7 fL (7.4-10.4); Monocytes # 1.3 10^3/uL (0.2-0.9); Monocytes % 9.2 %; Neutrophils # 11.65 10^3/uL (1.8-7.7); Neutrophils % 85.9 %; Nucleated Red Blood Cells % 0 %; Platelet Count 433 10^3/cmm (157-399); Red Cell Distribution Width 13.8 % (12.1-15.1); White Blood Count 13.58 10^3/uL (3.29-11.43)
[2024-12-28 05:01] LABS: Anion Gap 17.9 (5-19); Blood Urea Nitrogen 14 mg/dL (8-23); Calcium 9.3 mg/dL (8.5-10.5); Carbon Dioxide 29 mmol/L (22-29); Chloride 86 mmol/L (98-107); Glomerular Filtration Rate 85.1 mL/min (90-130); Glucose 165 mg/dL (65-115); Osmolality Calculated 272 mOsm/kg (285-295); Potassium 3.9 mmol/L (3.5-5.1); Sodium 129 mmol/L (136-145)
[2024-12-28] MEDS: lisinopril 10 mg Tablet PO (06:08)
--- NOTE | 2024-12-28 08:19 | USCV_ITS ---
Irish Gaviria Age: 59 Gender: F : 1965 Exam Date: 12/28/2024 11:06 Ordering Phys: Sandra Lan MD Technologist: Exam [place] [facility] [place]ication: lt arm swelling PROCEDURES: Venous duplex imaging was performed in only the left upper extremity. The following venous structures were evaluated: internal jugular vein, subclavian vein, axillary vein, and brachial veins. In addition, the basilic vein, cephalic vein, radial vein, and ulnar vein. FINDINGS: No evidence of deep vein thrombosis or superficial thrombophlebitis in the left upper extremity. CONCLUSIONS No evidence of thrombus of the left upper extremity veins. Gato Clifford MD (Electronically Signed) Final Date: 28 December 2024 11:46 S
[2024-12-28] MEDS: ATORVASTATIN 10 MG TABLET PO (08:56)
[2024-12-28] MEDS: carvedilol 6.25 mg Tablet 3.125 MG PO (08:56)
[2024-12-28] MEDS: potassium chloride oral liq 20 mEq/15 mL UDC 40 MEQ PO (08:56)
[2024-12-28] MEDS: cefdinir 300 MG CAPSULE PO (08:56)
--- NOTE | 2024-12-28 10:50 | PC.NURSE ---
membership secretary was told by family that patient had sores on her bottom. Patient's family informed that they were aware of sores and LEATHER PATCHER applied pink zinc ointment to sores.
[2024-12-28 14:40] LABS: PTH Related Peptide (Protein) 12 pg/mL (11-20)
--- NOTE | 2024-12-28 16:11 | P.DS_ITS ---
Discharge Providers Date of Admission: 12/22/24 14:35 Date of Discharge: December 28, 2024 Attending Provider at Admission: Arcadio Cabral MD Attending Provider at Discharge: Sandra Lan MD Primary Care Provider: Jose Alberto Singleton MD Diagnoses at Discharge Discharge Diagnosis (1) Acute hyponatremia: Status: Acute (2) Breast mass, right: Status: Acute (3) Leukocytosis: Status: Acute (4) Nausea & vomiting: Status: Resolved (5) Hypertension: Status: Acute (6) Diabetes mellitus type 2, controlled: Status: Chronic (7) Anasarca: Status: Acute Reason for Visit Reason for Visit: SOB, Swelling, pain Dr Singleton sent Brief History: Irish Jolley is a 59-year-old female with history of hypertension, DM2, and hyponatremia. Her baseline sodium level was in the mid 120s to mid 130s. Her sodium was 116 on admission. She had a mammogram that was concerning for malignancy. She also had a PET scan scheduled but was unable to complete because of a panic attack. Hospital Course Hospital Course Her serum sodium has improved. This is most likely from malignancy and not SIADH. She will get repeat outpatient labs to monitor her serum sodium. 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 Her CA125 was greater than 15,000. She has been referred to oncology. She has bilateral lower extremity edema. This is probably from hypoalbuminemia. Encouraged to increase protein intake. Okay to play compression stockings. She also had edema of the left upper extremity. Recommend tubigrip E from wrist to shoulder and elevate elbow above shoulder. Physical Exam Const: COMMON NORMALS: no acute distress and patient oriented x3 HENMT: COMMON NORMALS: normocephalic, atraumatic and moist oral mucous membranes HEAD & SCALP: normocephalic and atraumatic Eye: COMMON NORMALS: Equal, round and reactive pupils present, EOMs intact bilaterally and conjunctivae normal CONJUNCTIVA: Yes conjunctivae normal PUPIL: Yes Equal, round and reactive pupils present Neck/C-Spine: COMMON NORMALS: supple and no JVD Chest: COMMONS NORMALS: normal inspection of the chest Resp: COMMON NORMALS: normal respiratory effort and clear to auscultation bilaterally AUSCULTATION: clear to auscultation bilaterally Cardio: COMMON NORMALS: no JVD, regular rate, regular rhythm and No murmurs present (Cardio) RATE: regular rate RHYTHM: regular rhythm GI: COMMON NORMALS: Normal to inspection, nondistended, normoactive bowel sounds present : COMMON NORMALS: Yes no CVA tenderness BLADDER/KIDNEY EXAM: Yes no CVA tenderness Back/Pelvis: COMMON NORMALS: no CVA tenderness Extremity: GENERAL: Yes edema (Pitting edema bilateral lower extremities. Edema left upper extremity) Neuro: COMMON NORMALS: patient oriented x3, CN's II-XII intact bilaterally, moves all extremities, no focal motor deficits and no sensory deficits noted Skin: COMMON NORMALS: no rashes or lesions noted GENERAL SKIN EXAM: no rashes or lesions noted Discharge Data Studies Completed and Pending Completed Studies During Hospitalization Category Date Time Status XR chest 1V portable [id number] Stat Exams 12/22/24 11:59 Completed Pathology: Surgical [PTH] Routine Pth 12/23/24 14:41 Completed US venous duplex upper extremity LT [CV venous duplex Ultrasound 12/28/24 08:19 [place] [id number]] Routine Pending at discharge Category Date Time Status Basic Metabolic Panel AM LABS Lab 12/29/24 04:00 Ordered Complete Blood Count w/Auto AM LABS Lab 12/29/24 04:00 [place] [id number] Routine Ultrasound 12/23/24 16:22 Taken Radiology Impressions Chest X-Ray 12/22/24 11:59 Impression: 1. Development of moderate bilateral pleural effusions. 2. Bibasilar opacifications. 3. Atherosclerosis. Laboratory Results WBC 13.58 10^3/uL (3.29-11.43) H 12/28/24 04:27 RBC 3.90 10^6/uL (3.85-5.65) 12/28/24 04:27 Hgb 11.30 g/dL (11.27-16.99) 12/28/24 04:27 Hct 33.5 % (36-47) L 12/28/24 04:27 MCV 85.9 fl (85-98) 12/28/24 04:27 MCH 29.0 pg (27-33) 12/28/24 04:27 MCHC 33.7 g/dL (30-55) 12/28/24 04:27 RDW 13.8 % (12.1-15.1) 12/28/24 04:27 Plt Count 433 10^3/cmm (157-399) H 12/28/24 04:27 MPV 8.7 fL (7.4-10.4) 12/28/24 04:27 Neut % (Auto) 85.9 % 12/28/24 04:27 Lymph % (Auto) 4.2 % 12/28/24 04:27 [place] % (Auto) 9.2 % 12/28/24 04:27 Eos % (Auto) 0.1 % 12/28/24 04:27 Baso % (Auto) 0.1 % 12/28/24 04:27 Neut # (Auto) 11.65 10^3/uL (1.8-7.7) H 12/28/24 04:27 Lymph # (Auto) 0.6 10^3/uL (0.8-4.8) L 12/28/24 04:27 [place] # (Auto) 1.3 10^3/uL (0.2-0.9) H 12/28/24 04:27 Eos # (Auto) 0.0 10^3/uL (0.0-0.8) 12/28/24 04:27 Baso # (Auto) 0.0 10^3/uL (0.0-0.1) 12/28/24 04:27 Nucleated RBC % (auto) 0 % 12/28/24 04:27 Nucleated RBCs # 0.0 /100WBC 12/28/24 04:27 Sodium 129 mmol/L (136-145) L 12/28/24 04:27 Potassium 3.9 mmol/L (3.5-5.1) 12/28/24 04:27 Chloride 86 mmol/L (98-107) L 12/28/24 04:27 Carbon Dioxide 29 mmol/L (22-29) 12/28/24 04:27 Anion Gap 17.9 (5-19) 12/28/24 04:27 BUN 14 mg/dL (8-23) 12/28/24 04:27 Creatinine 0.7 mg/dL (0.5-0.9) 12/28/24 04:27 GFR Calculation 85.1 mL/min (90-130) L 12/28/24 04:27 Glucose 165 mg/dL (65-115) H 12/28/24 04:27 POC Glucose 102 mg/dL (70-110) 12/27/24 06:22 Calculated Osmolality 272 mOsm/kg (285-295) L 12/28/24 04:27 Lactic Acid 1.3 mmol/L (0.5-2.2) 12/22/24 14:11 Calcium 9.3 mg/dL (8.5-10.5) 12/28/24 04:27 Phosphorus 4.0 mg/dL (2.5-4.5) 12/25/24 03:34 Magnesium 2.0 mg/dL (1.7-2.3) 12/25/24 03:34 Iron 46 ug/dL (37-145) 12/22/24 12:16 TIBC 247 mcg/dl 12/22/24 12:16 % Saturation 18.6 % (20-50) L 12/22/24 12:16 Unsat Iron Binding 201 ug/dL (112-347) 12/22/24 12:16 Total Bilirubin 0.2 mg/dL (0.15-1.2) 12/26/24 03:27 AST 13 U/L (0-32) 12/26/24 03:27 ALT 7 U/L (0-33) 12/26/24 03:27 Alkaline Phosphatase 98 U/L (35-105) 12/26/24 03:27 Troponin T Baseline 24 ng/L (0-10) H 12/22/24 12:16 Troponin T 120 Minute 21.36 ng/L (0-10) H 12/22/24 14:11 Delta Troponin T -2.64 ABS# (0-10) L 12/22/24 14:11 Troponin T Hi Sens 6Hr 21.85 ng/L (0-10) H 12/22/24 18:12 Troponin T Hi Sens 6Hr Delta -2.15 ng/L (0-12) L 12/22/24 18:12 C-Reactive Protein 32.2 mg/L (0.0-4.9) H 12/22/24 12:16 NT-Pro-B Natriuret Pep 436 pg/mL (0-125) H 12/22/24 12:16 Total Protein 5.1 g/dL (6.6-8.7) L 12/26/24 03:27 Albumin 2.8 g/dL (3.5-5.2) L 12/26/24 03:27 Globulin 2.3 g/dL (1.3-4.6) 12/26/24 03:27 Carcinoembryonic Ag 28.4 ng/mL (0.0-4.7) H 12/22/24 16:52 CA 125 Antigen > 05758.0 U/mL (0-35) H 12/22/24 16:52 Ki-67 Interpretation Cancelled 12/22/24 16:22 Vitamin B12 Cancelled 12/22/24 16:52 Folate 8.7 ng/mL (4.8-37.3) 12/23/24 03:55 Procalcitonin 1.30 ng/mL (0-0.5) H 12/23/24 03:55 PTH Related Protein 12 pg/mL (11-20) 12/22/24 16:52 Urine Color Yellow (Yellow) 12/22/24 15:25 Urine Appearance Clear (CLEAR) 12/22/24 15:25 Urine pH 6.5 (5-7) 12/22/24 15:25 Ur Specific [place] 1.016 (1.005-1.030) 12/22/24 15:25 Urine Protein Trace (Negative) A 12/22/24 15: Urine Glucose (UA) 1+ (Normal) H 12/22/24 15:25 Urine Ketones 2+ (Negative) H 12/22/24 15:25 Urine Blood Negative (Negative) 12/22/24 15: Urine Nitrate Negative (Negative) 12/22/24 15:25 Urine Bilirubin Negative (Negative) 12/22/24 15:25 Urine Urobilinogen 0.2 mg/dL (Negative) 12/22/24 15:25 Ur Leukocyte Esterase Negative (Negative) 12/22/24 15:25 Urine RBC 0-2 /hpf (0-2) 12/22/24 15:25 Urine WBC 0-5 /hpf (0-5) 12/22/24 15:25 Ur Squamous Epith Cells 0-5 /hpf (0-5) 12/22/24 15:25 Amorphous Sediment Not Reportable 12/22/24 15:25 Urine Bacteria None seen /hpf (NONE) 12/22/24 15:25 Hyaline Casts 0.81 /lpf 12/22/24 15:25 Urine Osmolality 566 mOsm/kg (50-1200) 12/24/24 14:04 Ur Random Sodium 18 mmol/L 12/24/24 14:04 Ur Random Potassium 83 mmol/L 12/24/24 14:04 Ur Random Chloride 12 mmol/L 12/24/24 14:04 Nasal MRSA (PCR) Not detected (Not Detecte) 12/22/24 16:15 Vancomycin Trough 6.9 ug/mL (10-15) L 12/24/24 03:05 Vitals Last Vital Signs Temp 98.1 F 12/28/24 16:00 Pulse 94 12/28/24 16:00 Resp 18 12/28/24 16:00 BP 162/83 12/28/24 16:00 Pulse Ox 94 12/28/24 16:00 O2 Del Method Room Air 12/28/24 16:00 Discharge Plan Discharge Patient Disposition: Home Condition: Stable Prescriptions: New carvedilol 6.25 mg Tablet 3.125 mg PO BID Qty: 60 0RF ondansetron 4 mg tablet,disintegrating 4 mg PO Q8H PRN (Reason: nausea and vomiting) 4 Days Qty: 14 0RF furosemide [Lasix] 40 mg tablet 40 mg PO BID Qty: 60 0RF Continued pravastatin 40 mg tablet 40 mg PO DAILY omeprazole 40 mg capsule,delayed release(DR/EC) 40 mg PO DAILY PRN (Reason: Acid Reflux) celecoxib 100 mg capsule 100 mg PO BID PRN (Reason: Pain) dapagliflozin propanediol [Farxiga] 5 mg tablet 5 mg PO DAILY Qty: 30 2RF cyclobenzaprine 10 mg tablet 10 mg PO TID PRN (Reason: muscle cramps) trazodone 150 mg tablet 75 mg PO BEDTIME docusate sodium [Colace] 100 mg capsule 100 mg PO BID PRN (Reason: Constipation) ondansetron HCl 4 mg tablet 4 mg PO .Q4-6H PRN (Reason: Nausea And Vomiting) tramadol 50 mg tablet 50 mg PO Q8H PRN (Reason: Pain) glimepiride 4 mg tablet 4 mg PO BID Qty: 7 0RF Rx Instructions: 4 mg in morning and 2 mg in evening Changed furosemide 20 mg tablet 20 mg PO BIDAC Qty: 30 0RF lisinopril 20 mg tablet 10 mg PO QAM Qty: 5 0RF Discontinued carvedilol 12.5 mg tablet 6.25 mg PO BID paroxetine HCl 20 mg tablet 20 mg PO DAILY Discharge Orders: Discharge Order (Routine); Ordered 12/28/24 Ordered By: Sandra Lan Other Ambulatory Orders: Basic Metabolic Panel (Routine) Timeframe: 1 Week Facility: [facility] - Location: Lab - Main Lab Ordered By: Sandra Lan Referrals: Jose Alberto Singleton MD [Primary Care Provider, Family Practice] - 01/02/25 1:30 pm Edel Drummond MD [Hospitalist, Oncology] Discharge Diet: Regular Discharge Activity: Resume usual activity and Increase activity as tolerated Patient Instructions: Ondansetron (By mouth), Calcium Chloride/Magnesium Chloride/Potassium Chloride/Sodium..., Chronic Hypertension (DC), Leukocytosis (DC), Opioid Safety Activity Restrictions/Additional Instructions: Stop taking paroxetine. Repeat BMP in 1 week. Follow up with oncology. Apply tubigrip E to right upper extremity (wrist to shoulder). Elevate elbow above shoulder. Arnol house stockings to both legs. Discharge Attestations Time Spent in Discharge Care*: greater than 30 min Quality Metrics Clinical Quality Measures [ No reported AMI, CVA or VTE this stay] Coding Level of Care Code 80357 Diagnoses Acute hyponatremia E87.1 Breast mass, right N63.10 Leukocytosis D72.829 Nausea & vomiting R11.2 Hypertension I10 Diabetes mellitus type 2, controlled E11.9 Anasarca R60.1
--- NOTE | 2024-12-28 18:21 | PC.NURSE ---
Discharge Note Patient discharged to home via home w/home health accompanied by . Discharge instructions reviewed with patient and/or corporate sales representative. Mobile pharmacy medications and/or prescriptions provided. Belongings/home medications returned. Pt refused our TEDS in hospital to be applied for her legs and wrap for her arm, she said she will apply the bryan wrap provided when she gets home. she said, she will buy compression stocking in [facility]. Educated pt on her medications, all questions are answered.
[2024-12-30 07:19] LABS: Breast Profile ER,PR,HER2,Ki-6 See Report
== END 2024-12-28 18:17 | disposition home or self-care (01) | DRG 597 ==
LOC: ER 12:49 → ER IP 14:35 → ICU 14:40 → CSU 12-24 12:51
PROVIDERS: Internal Medicine; Admitting Provider Student in an Organized Health Care Education/Training Program; Emergency Provider Family Medicine; PCP Family Medicine; Visit Provider Student in an Organized Health Care Education/Training Program
DX: C50.611 Malignant neoplasm of axillary tail of right female breast (principal); E43 Unspecified severe protein-calorie malnutrition; J18.9 Pneumonia, unspecified organism; E87.1 Hypo-osmolality and hyponatremia; J90 Pleural effusion, not elsewhere classified; C77.9 Secondary and unspecified malignant neoplasm of lymph node, unspecified; Z79.899 Other long term (current) drug therapy; I10 Essential (primary) hypertension; E11.9 Type 2 diabetes mellitus without complications; E78.5 Hyperlipidemia, unspecified; N63.10 Unspecified lump in the right breast, unspecified quadrant; D72.829 Elevated white blood cell count, unspecified; E88.09 Other disorders of plasma-protein metabolism, not elsewhere classified; Z79.84 Long term (current) use of oral hypoglycemic drugs; Z88.5 Allergy status to narcotic agent; Z88.8 Allergy status to other drugs, medicaments and biological substances
CPT/HCPCS: 19083; 36415; 36416; 71045; 80048; 80053; 80202; 81001; 82378; 82436; 82542; 82607; 82746; 82962; 83540; 83550; 83605; 83735; 83880; 83935; 84100; 84133; 84145; 84295; 84300; 84484; 85025; 86140; 86304; 87040; 88305; 88361; 88374; 93005; 93971; 94664; 96372; 96376; 97161; 99285; J1644; J1815; J1885; J1938; J2270; J2405; J2470; J2543; J3370; J7030; J7131; J9999; P9046

== ENCOUNTER 2025-01-01 04:21 | Emergency (ER) | payer OTHER, SELFPAY ==
[2025-01-01 04:28] VITALS: BP 173/93; PULSE 79; RESP 20; TEMP 36.6; O2SAT 91; BMI 21.6
--- NOTE | 2025-01-01 04:56 | ECG_ITS ---
[email or web address] Date: 2025[facility]01[facility]01 Pat Name: Irish Gaviria Department: Room: Gender: Female Senior It Auditor: : 1965 Requested By: Brandon Johnson Order Number: [id number] [email or web address] MD: Gela Schwartz M.D. Measurements Intervals Dell Rate: 80 P: 32 [place]: 145 QRS: 46 QRSD: 106 T: 27 QT: 404 QTc: 466 Interpretive Statements SINUS RHYTHM Compared to ECG 12/22/2024 20:43:13 Myocardial infarct finding no longer present Electronically Signed On 01-01-2025 19:18:13 CDT by Gela Schwartz M.D. [email or web address]
[2025-01-01 05:11] LABS: Bilirubin Urine Negative (Negative); Blood Urine Negative (Negative); Glucose Urine UA Trace (Normal); Ketones Urine Negative (Negative); Leukocyte Esterase Urine Negative (Negative); Nitrate Urine Negative (Negative); Protein Urine 1+ (Negative); Specific Gravity, Urine 1.019 (1.005-1.030); Urine Appearance Clear (CLEAR); Urine Color Yellow (Yellow); Urobilinogen Urine 0.2 mg/dL (Negative)
[2025-01-01 05:16] LABS: Add Urine Microscopic? YES; Bacteria Urine None Seen /hpf; Hyaline Casts Urine 4.95 /lpf; RBC Urine 21-50 /hpf (0-2); Squamous Epithelial Cell Urine 0-5 /hpf (0-5); WBC Urine 0-5 /hpf (0-5)
[2025-01-01 05:25] LABS: Add Urine Culture? Yes; UA Slide Review UA Slide Review Perf
--- NOTE | 2025-01-01 05:29 | W.ED.RECABL ---
HPI - Recheck/Abnormal Lab/Rx General: Chief Complaint: Recheck/Abnormal Lab/Rx Stated Complaint: hypoglycemia Time Seen by Provider: 01/01/25 04:34 Source: patient Mode of arrival: ambulatory Limitations: no limitations History of Present Illness: 59-year-old female who came in by ambulance with hypoglycemia states she woke up this morning she was not feeling well EMS states her glucose was 40 she states she has not been eating much lately. She denies any vomiting diarrhea denies any worse improved factors Related Data Home Medications ?Medication ?Instructions ?Recorded ?Confirmed celecoxib 100 mg capsule 100 mg PO BID PRN Pain 11/03/24 12/22/24 omeprazole 40 mg capsule,delayed 40 mg PO DAILY PRN Acid Reflux 11/03/24 12/22/24 release pravastatin 40 mg tablet 40 mg PO DAILY 11/03/24 12/22/24 cyclobenzaprine 10 mg tablet 10 mg PO TID PRN muscle cramps 12/22/24 12/22/24 docusate sodium 100 mg capsule 100 mg PO BID PRN Constipation 12/22/24 12/22/24 (Colace) ondansetron HCl 4 mg tablet 4 mg PO .Q4-6H PRN Nausea And 12/22/24 12/22/24 Vomiting tramadol 50 mg tablet 50 mg PO Q8H PRN Pain 12/22/24 12/22/24 trazodone 150 mg tablet 75 mg PO BEDTIME insomnia 12/22/24 12/22/24 Previous Rx's ?Medication ?Instructions ?Recorded dapagliflozin propanediol 5 mg 5 mg PO DAILY #30 tabs 11/10/24 tablet (Farxiga) glimepiride 4 mg tablet 4 mg PO BID #7 tabs 12/25/24 lisinopril 20 mg tablet 10 mg (1/2 x 20 mg) PO QAM #5 tabs 12/25/24 carvedilol 6.25 mg tablet 3.125 mg (1/2 x 6.25 mg) PO BID 12/28/24 #60 tabs furosemide 20 mg tablet 20 mg PO BIDAC #30 tabs 12/28/24 Allergies Allergy/AdvReac Type Severity Reaction Status Date / Time amitriptyline AdvReac Intermediate anxious Verified 11/07/24 10:38 atorvastatin (From Lipitor) AdvReac Intermediate cramps Verified 11/07/24 10:38 codeine AdvReac Intermediate Unknown Verified 11/07/24 10:38 gabapentin (From Neurontin) AdvReac Intermediate stomach Verified 11/07/24 10:38 pain lorazepam AdvReac Intermediate headaches Verified 11/07/24 10:38 simvastatin (From Zocor) AdvReac Intermediate leg cramps Verified 11/07/24 10:38 Review of Systems Const: Reports: fatigue; Denies: fever(s), chills, body aches or change in appetite Eyes: Denies: blurry vision or eye discomfort ENMT: Denies: throat pain or dental pain Card: Denies: chest pain Resp: Denies: dyspnea GI: Denies: abdominal pain, nausea, vomiting or diarrhea : Denies: dysuria Musc: Denies: neck pain or back pain Skin/Breast: Denies: rash Neuro: Denies: headache(s) PFSH ED PFSH: Medical History (Updated 01/01/25 @ 06:03 by Brandon Tatum DO) Hypertension Diabetes mellitus type 2, controlled Hyponatremia Other thrombocytosis Hyperlipidemia Surgical History History of neck surgery Family History Brother Stomach cancer Father Leukemia Social History Smoking and tobacco/nicotine status: never used tobacco/nicotine Alcohol intake: never Substance/Drug Use: never Physical Exam Const: COMMON NORMALS: no acute distress, patient oriented x3 and healthy appearing HENMT: COMMON NORMALS: normocephalic and atraumatic HEAD & SCALP: normocephalic and atraumatic Eye: COMMON NORMALS: conjunctivae normal CONJUNCTIVA: Yes conjunctivae normal Neck/C-Spine: COMMON NORMALS: full ROM and supple Chest: COMMONS NORMALS: normal inspection of the chest Resp: COMMON NORMALS: normal respiratory effort Cardio: COMMON NORMALS: regular rate, regular rhythm and No murmurs present (Cardio) RATE: regular rate RHYTHM: regular rhythm Extremity: COMMON NORMALS: normal to inspection and full ROM Neuro: COMMON NORMALS: patient oriented x3, moves all extremities and no focal motor deficits Psych: COMMON NORMALS: mental status grossly normal, Normal thought process present and cooperative THOUGHT PROCESS: Normal thought process present Skin: COMMON NORMALS: no rashes or lesions noted and no wounds GENERAL SKIN EXAM: no rashes or lesions noted Course Vital Signs: Vital signs: Vital Signs Temperature 98 F 01/01/25 04:28 Pulse Rate 95 01/01/25 08:04 Respiratory Rate 20 H 01/01/25 04:28 Blood Pressure 164/80 01/01/25 08:04 Pulse Oximetry 96 01/01/25 08:04 Oxygen Delivery Me thod Room Air 01/01/25 04:28 MDM - Recheck/Abnormal Lab/Rx Medical Decision Making Patient presents here with hyperglycemia her glucose is stabilized here she is wanting to go home inform her she needs to go take a close watch on her glucose levels at home she is stable for discharge follow-up with PCP return if worsening Medical Records I reviewed the patient's medical records. Lab Data I reviewed the patient's lab results. 01/01/25 05:59 01/01/25 05:59 Laboratory Results WBC 19.06 10^3/uL (3.29-11.43) H 01/01/25 05:59 Corrected WBC Cancelled 01/01/25 05:32 RBC 4.43 10^6/uL (3.85-5.65) 01/01/25 05:59 Hgb 13.00 g/dL (11.27-16.99) 01/01/25 05:59 Hct 37.5 % (36-47) 01/01/25 05:59 MCV 84.7 fl (85-98) L 01/01/25 05:59 MCH 29.3 pg (27-33) 01/01/25 05:59 MCHC 34.7 g/dL (30-55) 01/01/25 05:59 RDW 13.0 % (12.1-15.1) 01/01/25 05:59 Plt Count 531 10^3/cmm (157-399) H 01/01/25 05:59 MPV 8.9 fL (7.4-10.4) 01/01/25 05:59 Gran % Cancelled 01/01/25 05:32 Neut % (Auto) 89.9 % 01/01/25 05:59 Lymph % (Auto) 3.0 % 01/01/25 05:59 [place] % (Auto) 6.2 % 01/01/25 05:59 Eos % (Auto) 0.1 % 01/01/25 05:59 Baso % (Auto) 0.2 % 01/01/25 05:59 Neut # (Auto) 17.15 10^3/uL (1.8-7.7) H 01/01/25 05:59 Lymph # (Auto) 0.6 10^3/uL (0.8-4.8) L 01/01/25 05:59 [place] # (Auto) 1.2 10^3/uL (0.2-0.9) H 01/01/25 05:59 Eos # (Auto) 0.0 10^3/uL (0.0-0.8) 01/01/25 05:59 Baso # (Auto) 0.0 10^3/uL (0.0-0.1) 01/01/25 05:59 Absolute Gran (auto) Cancelled 01/01/25 05:32 Nucleated RBC % (auto) 0 % 01/01/25 05:59 Nucleated RBCs # 0.0 /100WBC 01/01/25 05:59 Sodium 124 mmol/L (136-145) L 01/01/25 05:59 Potassium 3.2 mmol/L (3.5-5.1) L 01/01/25 05:59 Chloride 74 mmol/L (98-107) L 01/01/25 05:59 Carbon Dioxide 38 mmol/L (22-29) H 01/01/25 05:59 Anion Gap 15.2 (5-19) 01/01/25 05:59 BUN 33 mg/dL (8-23) H 01/01/25 05:59 Creatinine 0.6 mg/dL (0.5-0.9) 01/01/25 05:59 GFR Calculation 101.6 mL/min (90-130) 01/01/25 05:59 Glucose 94 mg/dL (65-115) 01/01/25 05:59 POC Glucose 110 mg/dL (70-110) 01/01/25 07:22 Calculated Osmolality 265 mOsm/kg (285-295) L 01/01/25 05:59 Calcium 9.5 mg/dL (8.5-10.5) 01/01/25 05:59 Magnesium 1.9 mg/dL (1.7-2.3) 01/01/25 05:59 Total Bilirubin 0.2 mg/dL (0.15-1.2) 01/01/25 05:59 AST 19 U/L (0-32) 01/01/25 05:59 ALT 10 U/L (0-33) 01/01/25 05:59 Alkaline Phosphatase 80 U/L (35-105) 01/01/25 05:59 Total Protein 6.7 g/dL (6.6-8.7) 01/01/25 05:59 Albumin 4.0 g/dL (3.5-5.2) 01/01/25 05:59 Globulin 2.7 g/dL (1.3-4.6) 01/01/25 05:59 Urine Color Yellow (Yellow) 01/01/25 04:44 Urine Appearance Clear (CLEAR) 01/01/25 04:44 Urine pH 6.0 (5-7) 01/01/25 04:44 Ur Specific [place] 1.019 (1.005-1.030) 01/01/25 04:44 Urine Protein 1+ (Negative) A 01/01/25 04:44 Urine Glucose (UA) Trace (Normal) H 01/01/25 04:44 Urine Ketones Negative (Negative) 01/01/25 04:44 Urine Blood Negative (Negative) 01/01/25 04:44 Urine Nitrate Negative (Negative) 01/01/25 04:44 Urine Bilirubin Negative (Negative) 01/01/25 04:44 Urine Urobilinogen 0.2 mg/dL (Negative) 01/01/25 04:44 Ur Leukocyte Esterase Negative (Negative) 01/01/25 04:44 Urine RBC 21-50 /hpf (0-2) H 01/01/25 04:44 Urine WBC 0-5 /hpf (0-5) 01/01/25 04:44 Ur Squamous Epith Cells 0-5 /hpf (0-5) 01/01/25 04:44 Amorphous Sediment Not Reportable 01/01/25 04:44 Urine Bacteria None seen /hpf (NONE) 01/01/25 04:44 Hyaline Casts 4.95 /lpf 01/01/25 04:44 Urine Yeast 2+ /hpf H 01/01/25 04:44 No radiology studies performed this visit Discharge Plan Discharge Patient Disposition: Home Clinical Impression: Diabetes mellitus type 2, controlled, Hypoglycemia Condition: Stable Prescriptions: No Action pravastatin 40 mg tablet 40 mg PO DAILY omeprazole 40 mg capsule,delayed release(DR/EC) 40 mg PO DAILY PRN (Reason: Acid Reflux) celecoxib 100 mg capsule 100 mg PO BID PRN (Reason: Pain) dapagliflozin propanediol [Farxiga] 5 mg tablet 5 mg PO DAILY Qty: 30 2RF cyclobenzaprine 10 mg tablet 10 mg PO TID PRN (Reason: muscle cramps) trazodone 150 mg tablet 75 mg PO BEDTIME docusate sodium [Colace] 100 mg capsule 100 mg PO BID PRN (Reason: Constipation) ondansetron HCl 4 mg tablet 4 mg PO .Q4-6H PRN (Reason: Nausea And Vomiting) tramadol 50 mg tablet 50 mg PO Q8H PRN (Reason: Pain) lisinopril 20 mg tablet 10 mg PO QAM Qty: 5 0RF glimepiride 4 mg tablet 4 mg PO BID Qty: 7 0RF Rx Instructions: 4 mg in morning and 2 mg in evening carvedilol 6.25 mg Tablet 3.125 mg PO BID Qty: 60 0RF furosemide 20 mg tablet 20 mg PO BIDAC Qty: 30 0RF Discharge Orders: Discharge ED (Routine); Ordered 01/01/25 Ordered By: Manfred Page Referrals: Jose Alberto Singleton MD [Primary Care Provider, [facility]] - 1-3 days Discharge Diet: Advance as tolerated Discharge Activity: Resume usual activity Patient Instructions: Hypoglycemia Print Language: Serbian Coding Level of Care Code ED [employer] for Jarad Garcia
[2025-01-01 05:45] LABS: Glucose Point of Care 100 mg/dL (70-110)
[2025-01-01 06:05] LABS: Basophils % 0.2 %; Eosinophils % 0.1 %; Hematocrit 37.5 % (36-47); Lymphocytes # 0.6 10^3/uL (0.8-4.8); Mean Corpuscular HGB Conc 34.7 g/dL (30-55); Mean Corpuscular Hemoglobin 29.3 pg (27-33); Mean Corpuscular Volume 84.7 fl (85-98); Mean Platelet Volume 8.9 fL (7.4-10.4); Monocytes # 1.2 10^3/uL (0.2-0.9); Monocytes % 6.2 %; Neutrophils # 17.15 10^3/uL (1.8-7.7); Neutrophils % 89.9 %; Nucleated Red Blood Cells % 0 %; Platelet Count 531 10^3/cmm (157-399); Red Blood Count 4.43 10^6/uL (3.85-5.65); White Blood Count 19.06 10^3/uL (3.29-11.43)
[2025-01-01 06:28] LABS: Alanine Aminotransferase 10 U/L (0-33); Alkaline Phosphatase 80 U/L (35-105); Anion Gap 15.2 (5-19); Aspartate Amino Transferase 19 U/L (0-32); Blood Urea Nitrogen 33 mg/dL (8-23); Calcium 9.5 mg/dL (8.5-10.5); Carbon Dioxide 38 mmol/L (22-29); Chloride 74 mmol/L (98-107); Creatinine Clr Calc Pharmacy 70.5059; Globulin 2.7 g/dL (1.3-4.6); Glomerular Filtration Rate 101.6 mL/min (90-130); Glucose 94 mg/dL (65-115); Magnesium 1.9 mg/dL (1.7-2.3); Osmolality Calculated 265 mOsm/kg (285-295); Potassium 3.2 mmol/L (3.5-5.1); Sodium 124 mmol/L (136-145); Total Bilirubin 0.2 mg/dL (0.15-1.2); Total Protein 6.7 g/dL (6.6-8.7)
[2025-01-01 07:26] LABS: Glucose Point of Care 110 mg/dL (70-110)
[2025-01-01 08:04] VITALS: BP 164/80; PULSE 95; O2SAT 96
== END 2025-01-01 08:06 | disposition home or self-care (01) ==
PROVIDERS: Emergency Medicine; Emergency Provider Emergency Medicine; PCP Family Medicine
DX: E11.649 Type 2 diabetes mellitus with hypoglycemia without coma (principal); E78.5 Hyperlipidemia, unspecified; I10 Essential (primary) hypertension
CPT/HCPCS: 36415; 36416; 80053; 81001; 82962; 83735; 85025; 87086; 87106; 93005; 99284

== ENCOUNTER 2025-01-04 09:20 | Oncology outpatient (recurring) (ONCR) | payer OTHER, SELFPAY | END 2025-01-09 23:59 | disposition home or self-care (01) | PROVIDERS: PCP Family Medicine; Visit Provider Internal Medicine | DX: Z53.9 Procedure and treatment not carried out, unspecified reason (principal) ==

== ENCOUNTER 2025-01-20 10:30 | Oncology outpatient (recurring) (ONCR) | payer BC, SELFPAY ==
--- NOTE | 2025-01-20 10:30 | PETR_ITS ---
PROCEDURE INFORMATION: Exam: PET/CT Skull Base to Mid-thigh Exam date and time: 01/20/2025 11:38 AM Age: 59 years old Clinical indication: Condition or disease; Primary cancer: Breast cancer; Prior surgery; Surgery date: 6+ months; Surgery type: Chest drain x 3 LABS AND CLINICAL REPORTS: Glucose: 138 mg/dl Treatment strategy for malignancy (PET staging): Initial Staging (PI) TECHNIQUE: Imaging protocol: Following at least four-hour fasting and following the injection of radiopharmaceutical, low dose CT images were obtained. Then, PET images were obtained. Attenuation corrected images were constructed using the CT scan. Fused images of PET and CT were reviewed. The standardized uptake values (SUV) reported below are maximum values within a region of interest, expressed in gm/ml. Exam includes orbital meatal line to mid-thigh. SUV normalization method: BodyWeight Radiopharmaceutical: 10.5 mCi F-18 FDG (Fluorodeoxyglucose), IV. Time of imaging post radiopharmaceutical administration: 60 minutes Injection site: left hand COMPARISON: CT chest abdpel w/*[id number] 11/07/2024 12:03 PM FINDINGS: Brain: Visualized brain has normal physiologic uptake. Pharynx: No abnormal uptake. Larynx: No abnormal uptake. Lungs, pleura and trachea: Decreased photopenic moderate right pleural effusion. There appears to be some right pleural FDG uptake, although difficult to distinguish from adjacent muscular uptake to include intercostal muscles and diaphragm. Increased moderate left pleural effusion with diffuse low-level FDG uptake showing SUV max 1.5. Mild right apical scarring with stable slight irregular 5 mm nodular opacity on axial image 57 showing SUV max 1.3. Developed 7 mm non FDG avid left upper lobe nodular opacity on axial image 62. Bilateral lower lung atelectasis. Heart: Normal physiologic uptake. Mediastinal space: No abnormal uptake. Liver: No abnormal uptake. Gallbladder and biliary ducts: No abnormal uptake. Prior cholecystectomy. Pancreas: No abnormal uptake. Spleen: No abnormal uptake. Adrenal glands: Bilateral low-level uptake without nodule may be physiologic or hyperplasia. Kidneys and ureters: Asymmetric decreased uptake on the left with developed mild hydronephrosis and proximal ureteral dilatation. No obstructing calcified stone. Stomach and bowel: FDG avid thickening along the rectum and cervix shows SUV max 11.6 on axial image 186 at the expected cervix with abnormal uptake also extending to the uterus. Additional scattered areas of nonspecific FDG uptake throughout the bowel. Intraperitoneal and retroperitoneal spaces: Moderate ascites with diffuse low-level uptake showing SUV max 1.7. Bilateral FDG avid nodular soft tissue density adnexal foci showing SUV max 4.4 on the right on axial image 174 and 3.9 on the left on axial image 172. Focal nodular FDG uptake at the superior bladder margin shows SUV max 6.2 on axial image 190. Focal uptake at the right lower quadrant showing SUV max 9.4 on axial image 160 may be peritoneal versus intestinal. Anterolateral left upper abdomen FDG avid focus showing SUV max 5.0 on axial image 139. Vasculature: No abnormal uptake. Moderate systemic atherosclerotic calcification without aortic aneurysm. Lymph nodes: FDG avid right upper paratracheal node measures 5 mm in the short axis on axial image 53 and shows SUV max 3.3. Nonenlarged subcarinal node shows SUV max 6.7 on axial image 74. Right hilar uptake without discretely measurable node shows SUV max 3.2 on axial image 74. FDG avid right axillary lymph node measures 6 mm on axial image 78 and shows SUV max 5.0. Right iliac node measures approximately 1.2 cm in the short axis on axial image 154 and shows SUV max 6.7. Right inguinal node measures 5 mm in the short axis on axial image 199 and shows SUV max 7.2. Left external iliac node measures 6 mm in the short axis on axial image 183 and shows SUV max 3.7. Skeleton: FDG avid 1.2 cm sclerotic right acromial lesion shows SUV max 3.2 on axial image 53. Degenerative changes along the axial skeletal system and acromioclavicular joints. Soft tissues: Asymmetric FDG avid thickening of the right latissimus dorsi measures approximately 2.1 cm thickness on axial image 79 (0.9 cm on the left) and shows SUV max 8.0. Bilateral lower anterior neck, diffuse right chest and lateral abdominal wall musculature uptake without underlying CT abnormality is likely physiologic activation or strain. Left anterior chest wall muscle FDG uptake without underlying CT abnormality is also likely benign, as is bilateral pelvic and hip muscle uptake. Diffuse body wall and imaged proximal thigh edema. METRICS: Mediastinal blood pool: SUV mean 1.7 Liver uptake: SUV mean 2.0 PET/PET skull to thigh INIT [id number] IMPRESSION: 1. FDG avid thickening along the rectum and cervix also extending to the uterus, uncertain site of origin (rectal versus cervical or possibly uterine), suspicious for malignancy. 2. Bilateral FDG avid nodular soft tissue density adnexal foci. If these represent ovaries, FDG uptake in this age demographic would be considered abnormal and should be further evaluated with consideration for ultrasound or MRI. Alternatively, these may represent peritoneal deposits given additional foci suspicious for metastatic peritoneal deposits. 3. Moderate ascites with diffuse low-level uptake. 4. Scattered FDG avid lymphadenopathy within the chest, abdomen and pelvis suspicious for metastatic disease (to include FDG avid right axillary lymph node). 5. FDG avid sclerotic right acromial lesion suspicious for metastasis. 6. Mild left hydronephrosis and proximal ureteral dilatation with decreased FDG uptake. No obstructing calcified stone. 7. Decreased photopenic moderate right pleural effusion. Some degree of right pleural FDG uptake difficult to distinguish from adjacent muscular uptake. Findings may be inflammatory, neoplastic etiology not entirely excluded. 8. Increased moderate left pleural effusion with diffuse very low-level FDG uptake. 9. Mild right apical scarring with stable slight irregular 5 mm nodular opacity that is non FDG avid favoring nodular scar/inflammatory change. 10. Developed 7 mm non FDG avid left upper lobe nodule below size threshold for accurate assessment. 11. Asymmetric FDG avid thickening of the right latissimus dorsi suspected to represent benign muscle activation given diffuse muscular FDG uptake along the right chest wall, right hemidiaphragm, and lateral right abdominal wall.
== END 2025-01-26 23:59 | disposition home or self-care (01) ==
LOC: ONCMED 01-23 10:39
PROVIDERS: PCP Family Medicine; Visit Provider Internal Medicine
DX: C50.411 Malignant neoplasm of upper-outer quadrant of right female breast; R93.89 Abnormal findings on diagnostic imaging of other specified body structures; R18.8 Other ascites; R59.0 Localized enlarged lymph nodes; M89.9 Disorder of bone, unspecified; N13.30 Unspecified hydronephrosis; N28.82 Megaloureter; J90 Pleural effusion, not elsewhere classified; J98.4 Other disorders of lung; J98.11 Atelectasis; Z90.49 Acquired absence of other specified parts of digestive tract; Z53.9 Procedure and treatment not carried out, unspecified reason
CPT/HCPCS: 78815; A9552

== ENCOUNTER 2025-01-23 11:03 | Day surgery (SDC) | payer BC, SELFPAY ==
--- NOTE | 2025-01-23 11:12 | US_ITS ---
WS: [id number] Abdominal ultrasound, limited. History: Evaluate for ascites. Comparison: None. All 4 quadrants are imaged by ultrasound to evaluate for ascites. There is a small amount of ascites distributed throughout the peritoneal cavity. There is no pocket sufficient to perform a paracentesis. Bowel is noted peristalsing and mobile in and out of the fluid pockets. US/US abdomen limited [id number] IMPRESSION: Small amount of ascites. Insufficient for safe paracentesis. Consider 1 week ul trasound follow-up evaluation for increasing mild of ascites.
[2025-01-23 11:26] VITALS: BMI 22.5
[2025-01-23 11:28] VITALS: BP 105/59; PULSE 80; RESP 18; TEMP 36.1; O2SAT 91
== END 2025-01-23 12:01 | disposition home or self-care (01) ==
PROVIDERS: Radiology Diagnostic Radiology; PCP Family Medicine; Visit Provider Internal Medicine Medical Oncology
DX: R18.8 Other ascites (principal); Z53.8 Procedure and treatment not carried out for other reasons
CPT/HCPCS: 49083; 76705